=== PATIENT | male | born 1980 | race Caucasian/White ===

== ENCOUNTER 2017-05-06 21:14 | Emergency (ER) | payer OTHER ==
[2017-05-06 22:04] LABS: Hematocrit 38 % (42-52); Hemoglobin 12.2 g/dl (14.0-18.0); Mean Corpuscular HGB Conc 32 g/dl (31-36); Mean Corpuscular Hemoglobin 25 pg (27-31); Mean Corpuscular Volume 78 fL (80-94); Mean Platelet Volume 7 um3 (7.4-10.4); Red Blood Count 4.86 10^6/ul (4.0-5.4); Red Cell Distribution Width 16 % (10.5-15); White Blood Count 9.7 10^3/ul (3.5-10.8)
[2017-05-06 22:20] LABS: ALT 16 U/L (7-52); AST 21 U/L (13-39); Alkaline Phosphatase 46 U/L (34-104); Anion Gap 7 mmol/L (2-11); BUN/Creatinine Ratio 8.8 (8-20); Blood Urea Nitrogen 12 mg/dL (6-24); CO2 Carbon Dioxide 24 mmol/L (22-32); Calcium 9.5 mg/dL (8.6-10.3); Chloride 105 mmol/L (101-111); Creatine Kinase 192 U/L (10-223); EGFR African American 75.2 (>60); EGFR Non-African American 58.5 (>60); Globulin 3.3 g/dL (2-4); Glucose 135 mg/dL (70-100); Potassium 3.6 mmol/L (3.5-5.0); Sodium 136 mmol/L (133-145); Total Protein 7.3 g/dL (6.4-8.9)
[2017-05-06 22:45] LABS: Acetaminophen < 15 mcg/mL; Alcohol < 10 mg/dL (<10); Salicylate < 2.50 mg/dL (<30)
[2017-05-06 22:56] LABS: TSH (Thyroid Stimulating Horm) 0.48 mcIU/mL (0.34-5.60)
[2017-05-07] MEDS ORDERED: Mouth Piece, Nicotine* 1 EACH CARTRIDGE ONE (01:07)
[2017-05-07] MEDS ORDERED: Nicotine Inhaler* 10 MG AMP ONE (01:07)
[2017-05-07] MEDS ORDERED: Nicotine Inhaler* 10 MG AMP INH PRN (01:09)
[2017-05-07] MEDS ORDERED: Mouth Piece, Nicotine* 1 EACH CARTRIDGE INH PRN (01:09)
[2017-05-07 01:18] LABS: Urine Bilirubin Negative (Negative); Urine Glucose Negative (Negative); Urine Nitrite Negative (Negative)
[2017-05-07 01:31] LABS: Benzodiazepine Urine Screen None Detected (None Detect)
--- NOTE | 2017-05-07 05:37 | ED ---
I, Mg,Nathalie, scribed for Ricardo Lang MD on 05/06/17 at 2138 . Psychiatric Complaint - HPI Summary HPI Summary: This 37 y/o male presents to ED as 941 with [place] law enforcement. Per title lawyer, pt was [place] at gas station [place] and noted with altered behavior. Officer denies any witnessed seizure en route, but pt was reportedly noted with "trembling" by bystanders at gas station. he is also reported with irregular driving. Pt at time of initial evaluation denies any SI/ HI, auditory hallucination, or any substance abuse, or EtOH consumption tonight. Pt reports that he is currently on antidepressant, but denies being on any Abilify or haldol. Occasional MJ user. - History Of Current Complaint Chief Complaint: EDMentalHealth Hx Obtained From: Patient, Other: - law enforcement Onset/Duration: Still Present Timing: Constant Severity Initially: Moderate Severity Currently: Moderate Aggravating Factor(s): Nothing Alleviating Factor(s): Nothing Associated Signs And Symptoms: Positive: Negative - Allergies/Home Medications Allergies/Adverse Reactions: Allergies Allergy/AdvReac Type Severity Reaction Status Date / Time No Known Allergies Allergy Verified 04/03/17 20:51 PMH/Surg Hx/FS Hx/Imm Hx Endocrine/Hematology History: Denies: Hx Anticoagulant Therapy, Hx Diabetes, Hx Thyroid Disease Cardiovascular History: Denies: Hx Congestive Heart Failure, Hx Deep Vein Thrombosis, Hx Hypertension , Hx Myocardial Infarction, Hx Pacemaker/ICD Respiratory History: Denies: Hx Asthma, Hx Chronic Obstructive Pulmonary Disease (COPD), Hx Lung Cancer, Hx Pneumonia, Hx Pulmonary Embolism GI History: Denies: Hx Gall Bladder Disease, Hx Gastrointestinal Bleed, Hx Ulcer, Hx Urosepsis History: Denies: Hx Kidney Stones, Hx Renal Disease Neurological History: Denies: Hx Dementia, Hx Migraine, Hx Seizures, Hx Transient Ischemic Attacks (TIA) Psychiatric History: Denies: Hx Anxiety, Hx Depression, Hx Schizophrenia, Hx Bipolar Disorder - Surgical History Surgery Procedure, Year, and Place: APPENDECTOMY Infectious Disease History: Denies: Traveled Outside the [place] in Last 30 Days - Family History Known Family History: Positive: Hypertension, Diabetes - Social History Alcohol Use: None Hx Substance Use: Yes Substance Use Type: Reports: Marijuana Hx Tobacco Use: Yes Smoking Status (MU): Current Some Day Smoker Review of Systems Negative: Fever Negative: Anxious, Depressed, Other - negative SI/HI All Other Systems Reviewed And Are Negative: Yes Physical Exam - Summary Physical Exam Summary: The patient is well-nourished in no acute distress and in no acute pain. The skin is warm and dry and skin color reflects adequate perfusion. Negative sign of self harm. HEENT: The head is normocephalic and atraumatic. The pupils are equal and reactive. The conjunctivae are clear and without drainage. Nares are patent and without drainage. Mouth reveals moist mucous membranes and the throat is without erythema and exudate. Neck is supple with full range of motion and non-tender. There are no carotid bruits. There is no neck vein distension. Respiratory: Chest is non-tender. Lungs are clear to auscultation and breath sounds are symmetrical and equal. Cardiovascular: Hear is regular rate and rhythm. There is no murmur or rub auscultated. There is no peripheral edema and pulses are symmetrical and equal. Abdomen: The abdomen is soft and non-tender. There are normal bowel sounds heard in all four quadrants and there is no organomegaly palpated. Musculoskeletal: There is no back pain noted. Extremities are non-tender with full range of motion. There is good capillary refill. There is no peripheral edema or calf tenderness elicited. Neurological: Patient is alert and oriented to person, place and time. The patient has symmetrical motor strength in all four extremities. Cranial nerves are grossly intact. Deep tendon reflexes are symmetrical and equal in all four extremities. Psychiatric: The patient is noted with mild delusion and flight of idea. Triage Information Reviewed: Yes Vital Signs On Initial Exam: Initial Vitals Temp Pulse Resp BP Pulse Ox 98 F 106 22 125/82 98 05/06/17 21:18 05/06/17 21:18 05/06/17 21:18 05/06/17 21:18 05/06/17 21:18 Vital Signs Reviewed: Yes Diagnostics - Vital Signs Vital Signs Temp Pulse Resp BP Pulse Ox 05/06/17 21:18 98 F 106 22 125/82 98 - Laboratory Lab Results: Lab Results 05/06/17 05/06/17 05/07/17 Range/Units 21:50 21:50 01:00 WBC 9.7 (3.5-10.8) 10^3/ul RBC 4.86 (4.0-5.4) 10^6/ul Hgb 12.2 L (14.0-18.0) g/dl Hct 38 L (42-52) % MCV 78 L (80-94) fL MCH 25 L (27-31) pg MCHC 32 (31-36) g/dl RDW 16 H (10.5-15) % Plt Count 242 (150-450) 10^3/ul MPV 7 L (7.4-10.4) um3 Neut % (Auto) 67.3 (38-83) % Lymph % (Auto) 16.0 L (25-47) % Wilcox % (Auto) 10.2 H (1-9) % Eos % (Auto) 4.9 (0-6) % Baso % (Auto) 1.6 (0-2) % Absolute Neuts (auto) 6.5 (1.5-7.7) 10^3/ul Absolute Lymphs (auto) 1.5 (1.0-4.8) 10^3/ul Absolute Monos (auto) 1.0 H (0-0.8) 10^3/ul Absolute Eos (auto) 0.5 (0-0.6) 10^3/ul Absolute Basos (auto) 0.2 (0-0.2) 10^3/ul Absolute Nucleated RBC 0 10^3/ul Nucleated RBC % 0 Sodium 136 (133-145) mmol/L Potassium 3.6 (3.5-5.0) mmol/L Chloride 105 (101-111) mmol/L Carbon Dioxide 24 (22-32) mmol/L Anion Gap 7 (2-11) mmol/L BUN 12 (6-24) mg/dL Creatinine 1.37 H (0.67-1.17) mg/dL Est GFR ( Amer) 75.2 (>60) Est GFR (Non-Af Amer) 58.5 (>60) BUN/Creatinine Ratio 8.8 (8-20) Glucose 135 H (70-100) mg/dL Calcium 9.5 (8.6-10.3) mg/dL Total Bilirubin 0.50 (0.2-1.0) mg/dL AST 21 (13-39) U/L ALT 16 (7-52) U/L Alkaline Phosphatase 46 (34-104) U/L Total Creatine Kinase 192 (10-223) U/L Total Protein 7.3 (6.4-8.9) g/dL Albumin 4.0 (3.2-5.2) g/dL Globulin 3.3 (2-4) g/dL Albumin/Globulin Ratio 1.2 (1-3) TSH 0.48 (0.34-5.60) mcIU/mL Urine Color Yellow Urine Appearance Clear Urine pH 5.0 (5-9) Ur Specific Success 1.015 (1.010-1.030) Urine Protein Negative (Negative) Urine Ketones Negative (Negative) Urine Blood Negative (Negative) Urine Nitrate Negative (Negative) Urine Bilirubin Negative (Negative) Urine Urobilinogen Negative (Negative) Ur Leukocyte Esterase Negative (Negative) Urine Glucose Negative (Negative) Salicylates < 2.50 (<30) mg/dL Urine Opiates Screen (None Detect) Acetaminophen < 15 mcg/mL Ur Barbiturates Screen (None Detect) Ur Phencyclidine Scrn (None Detect) Ur Amphetamines Screen (None Detect) U Benzodiazepines Scrn (None Detect) Urine Cocaine Screen (None Detect) U Cannabinoids Screen (None Detect) Serum Alcohol < 10 (<10) mg/dL 05/07/17 Range/Units 01:00 WBC (3.5-10.8) 10^3/ul RBC (4.0-5.4) 10^6/ul Hgb (14.0-18.0) g/dl Hct (42-52) % MCV (80-94) fL MCH (27-31) pg MCHC (31-36) g/dl RDW (10.5-15) % Plt Count (150-450) 10^3/ul MPV (7.4-10.4) um3 Neut % (Auto) (38-83) % Lymph % (Auto) (25-47) % Wilcox % (Auto) (1-9) % Eos % (Auto) (0-6) % Baso % (Auto) (0-2) % Absolute Neuts (auto) (1.5-7.7) 10^3/ul Absolute Lymphs (auto) (1.0-4.8) 10^3/ul Absolute Monos (auto) (0-0.8) 10^3/ul Absolute Eos (auto) (0-0.6) 10^3/ul Absolute Basos (auto) (0-0.2) 10^3/ul Absolute Nucleated RBC 10^3/ul Nucleated RBC % Sodium (133-145) mmol/L Potassium (3.5-5.0) mmol/L Chloride (101-111) mmol/L Carbon Dioxide (22-32) mmol/L Anion Gap (2-11) mmol/L BUN (6-24) mg/dL Creatinine (0.67-1.17) mg/dL Est GFR ( Amer) (>60) Est GFR (Non-Af Amer) (>60) BUN/Creatinine Ratio (8-20) Glucose (70-100) mg/dL Calcium (8.6-10.3) mg/dL Total Bilirubin (0.2-1.0) mg/dL AST (13-39) U/L ALT (7-52) U/L Alkaline Phosphatase (34-104) U/L Total Creatine Kinase (10-223) U/L Total Protein (6.4-8.9) g/dL Albumin (3.2-5.2) g/dL Globulin (2-4) g/dL Albumin/Globulin Ratio (1-3) TSH (0.34-5.60) mcIU/mL Urine Color Urine Appearance Urine pH (5-9) Ur Specific Success (1.010-1.030) Urine Protein (Negative) Urine Ketones (Negative) Urine Blood (Negative) Urine Nitrate (Negative) Urine Bilirubin (Negative) Urine Urobilinogen (Negative) Ur Leukocyte Esterase (Negative) Urine Glucose (Negative) Salicylates (<30) mg/dL Urine Opiates Screen Presumptive positive H (None Detect) Acetaminophen mcg/mL Ur Barbiturates Screen None detected (None Detect) Ur Phencyclidine Scrn None detected (None Detect) Ur Amphetamines Screen Presumptive positive H (None Detect) U Benzodiazepines Scrn None detected (None Detect) Urine Cocaine Screen Presumptive positive H (None Detect) U Cannabinoids Screen Presumptive positive H (None Detect) Serum Alcohol (<10) mg/dL Result Diagrams: 05/06/17 21:50 05/06/17 21:50 Lab Statement: Any lab studies that have been ordered have been reviewed, and results considered in the medical decision making process. - EKG 2208 Cardiac Rate: NL EKG Rhythm: Sinus Rhythm Course/Dx - Course Assessment/Plan: This 37 y/o male presents to ED under [place] law enforcement custody after driving erradically and acting altered at [place] station [place]. Officer present at bedside denies witnessing any seizure en route, but does states that bystanders at gas station reports that pt was noted with tremors. Upon examination pt is noted with flight of ideas. Negative SI/HI. Pt was medically cleared and put through mental health evaluation. Pt is discharged home. - Differential Dx/Clinical Impression Differential Diagnosis/HQI/PQRI: Positive: Acute Psychosis, Drug Overdose/ Unintentional, Schizophrenia Provider Diagnosis: substance psychosis, Polysubstance abuse - Physician Notifications Patient Is Medically Stable For: Psych Evaluation - medically cleared at 2344 PM Discharge - Discharge Plan Condition: Stable Disposition: HOME Referrals: Clay Joseph MD [Primary Care Provider] - The documentation as recorded by the Mg mcginnis Soohyun accurately reflects the service I personally performed and the decisions made by , Ricardo Lang MD.
[2017-05-07 05:48] VITALS: BP 128/67
== END 2017-05-07 05:48 | disposition home or self-care (01) ==
LOC: ED 21:14
DX: F19.959 Other psychoactive substance use, unspecified with psychoactive substance-induced psychotic disorder, unspecified (principal); F19.10 Other psychoactive substance abuse, uncomplicated
CPT/HCPCS: 36415; 80053; 80307; 80320; 80329; 81003; 82550; 84443; 85025; 99285; A9270-GY; G0480

== ENCOUNTER → 2017-08-28 12:41 | Emergency (ER) | payer OTHER ==
[~2017-08-28 12:41] MED LIST: Haloperidol INJ IV/IM* 5 MG/ML AMP ONE; LORazepam INJ* 2 MG/ML 1 ML VIAL ONE; diPHENhydraMINE IV* 50 MG/ML 1 ml VIAL (BENADRYL) ONE
[2017-08-28 13:46] LABS: Hematocrit 38 % (42-52); Hemoglobin 12.4 g/dl (14.0-18.0); Mean Corpuscular HGB Conc 32 g/dl (31-36); Mean Corpuscular Hemoglobin 25 pg (27-31); Mean Corpuscular Volume 78 fL (80-94); Mean Platelet Volume 7 um3 (7.4-10.4); Red Blood Count 4.93 10^6/ul (4.0-5.4); Red Cell Distribution Width 17 % (10.5-15); White Blood Count 11.4 10^3/ul (3.5-10.8)
[2017-08-28 13:56] LABS: ALT 20 U/L (7-52); AST 35 U/L (13-39); Albumin 3.8 g/dL (3.2-5.2); Alkaline Phosphatase 49 U/L (34-104); Anion Gap 7 mmol/L (2-11); BUN/Creatinine Ratio 6.6 (8-20); Blood Urea Nitrogen 10 mg/dL (6-24); CO2 Carbon Dioxide 22 mmol/L (22-32); Calcium 9.2 mg/dL (8.6-10.3); Chloride 107 mmol/L (101-111); EGFR African American 67.2 (>60); EGFR Non-African American 52.3 (>60); Globulin 3.5 g/dL (2-4); Glucose 95 mg/dL (70-100); Potassium 3.9 mmol/L (3.5-5.0); Sodium 136 mmol/L (133-145); Total Protein 7.3 g/dL (6.4-8.9)
[2017-08-28 14:45] LABS: Acetaminophen < 15 mcg/mL; Alcohol < 10 mg/dL (<10); Salicylate < 2.50 mg/dL (<30)
[2017-08-28 15:00] LABS: TSH (Thyroid Stimulating Horm) 0.91 mcIU/mL (0.34-5.60)
[2017-08-28 18:03] LABS: Urine Bilirubin Negative (Negative); Urine Glucose Negative (Negative); Urine Nitrite Negative (Negative)
[2017-08-28 18:17] LABS: Benzodiazepine Urine Screen None Detected (None Detect)
[2017-08-28 22:26] VITALS: BP 112/64
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
--- NOTE | 2017-08-30 08:16 | CONSULT ---
Consult Consult: Mr. Ellis presented last night intoxicated and out of control. He was sobered up and medically cleared on a previous shift and then seen by the [facility] today. They felt that he was safe for D/C. He will be D/C'd in stable condition with a diagnosis of substance abuse.
== END ==
LOC: ED 12:41
DX: F19.10 Other psychoactive substance abuse, uncomplicated (principal); F17.200 Nicotine dependence, unspecified, uncomplicated
CPT/HCPCS: 36415; 80053; 80307; 80320; 80329; 81003; 84443; 85025; 99284; G0480; J1200; J1630; J2060

== ENCOUNTER 2017-09-13 16:44 | Observation (INO) | payer OTHER ==
[2017-09-13] MEDS ORDERED: LORazepam INJ* 2 MG/ML 1 ML VIAL IM ONE (17:11)
[2017-09-13] MEDS ORDERED: Haloperidol INJ IV/IM* 5 MG/ML AMP IM ONE (17:11)
[2017-09-13] MEDS ORDERED: diPHENhydraMINE IV* 50 MG/ML 1 ml VIAL (BENADRYL) IM ONE (17:11)
[2017-09-13] MEDS ORDERED: NS 0.9% 1000 ML* 1,000 ML IV ONE (17:42)
[2017-09-13] MEDS ORDERED: Naloxone* 0.4 MG/ML 1 ML VIAL IV PUSH ONE ×3 (17:54→21:48)
[2017-09-13] MEDS ORDERED: Naloxone* 0.4 MG/ML 1 ML VIAL ONE ×2 (17:55→20:55)
[2017-09-13 19:07] LABS: Hematocrit 37 % (42-52); Hemoglobin 12.1 g/dl (14.0-18.0); Mean Corpuscular HGB Conc 33 g/dl (31-36); Mean Corpuscular Hemoglobin 25 pg (27-31); Mean Corpuscular Volume 77 fL (80-94); Mean Platelet Volume 7 um3 (7.4-10.4); Red Blood Count 4.83 10^6/ul (4.0-5.4); Red Cell Distribution Width 17 % (10.5-15); White Blood Count 10.2 10^3/ul (3.5-10.8)
[2017-09-13 19:17] LABS: ALT 12 U/L (7-52); AST 22 U/L (13-39); Albumin 3.6 g/dL (3.2-5.2); Alkaline Phosphatase 38 U/L (34-104); Anion Gap 6 mmol/L (2-11); BUN/Creatinine Ratio 10.6 (8-20); Blood Urea Nitrogen 13 mg/dL (6-24); CO2 Carbon Dioxide 26 mmol/L (22-32); Calcium 9.3 mg/dL (8.6-10.3); Chloride 104 mmol/L (101-111); EGFR African American 85.2 (>60); EGFR Non-African American 66.2 (>60); Globulin 3.5 g/dL (2-4); Glucose 83 mg/dL (70-100); Potassium 3.9 mmol/L (3.5-5.0); Sodium 136 mmol/L (133-145); Total Protein 7.1 g/dL (6.4-8.9)
[2017-09-13 19:31] LABS: Acetaminophen < 15 mcg/mL; Alcohol < 10 mg/dL (<10); Salicylate < 2.50 mg/dL (<30)
[2017-09-13 19:45] LABS: TSH (Thyroid Stimulating Horm) 0.87 mcIU/mL (0.34-5.60)
[2017-09-13 20:22] LABS: Creatine Kinase 404 U/L (10-223)
--- NOTE | 2017-09-13 21:46 | ED ---
Cori Montana Nilda, scribed for Jennifer Downey MD on 09/13/17 at 1910 . Substance Abuse/Use - HPI Summary HPI Summary: This patient is a 37 year old M [facility] s/p possible substance abuse. Patient is acting erratically and will not cooperate with providers. LEVEL 5 CAVEAT: HPI limited due to patients uncooperative status. - History Of Current Complaint Chief Complaint: EDSubstanceAbuse Stated Complaint: 2208 Time Seen by Provider: 09/13/17 16:50 Hx Obtained From: Patient Hx From Patient Unobtainable Due To: Altered Mental Status Severity Currently: Moderate Character: Other - inappropriate behavior, noncooperative - Allergies/Home Medications Allergies/Adverse Reactions: Allergies Allergy/AdvReac Type Severity Reaction Status Date / Time No Known Allergies Allergy Verified 04/03/17 20:51 PMH/Surg Hx/FS Hx/Imm Hx Endocrine/Hematology History: Denies: Hx Anticoagulant Therapy, Hx Diabetes, Hx Thyroid Disease Cardiovascular History: Denies: Hx Congestive Heart Failure, Hx Deep Vein Thrombosis, Hx Hypertension , Hx Myocardial Infarction, Hx Pacemaker/ICD Respiratory History: Denies: Hx Asthma, Hx Chronic Obstructive Pulmonary Disease (COPD), Hx Lung Cancer, Hx Pneumonia, Hx Pulmonary Embolism GI History: Denies: Hx Gall Bladder Disease, Hx Gastrointestinal Bleed, Hx Ulcer, Hx Urosepsis History: Denies: Hx Kidney Stones, Hx Renal Disease Neurological History: Denies: Hx Dementia, Hx Migraine, Hx Seizures, Hx Transient Ischemic Attacks (TIA) Psychiatric History: Denies: Hx Anxiety, Hx Eating Disorder, Hx Depression, Hx Schizophrenia, Hx Bipolar Disorder, Hx of Violent Episodes Against Others - Surgical History Surgery Procedure, Year, and Place: APPENDECTOMY Infectious Disease History: Unable to Obtain/Confirm Infectious Disease History: Denies: Traveled Outside the [place] in Last 30 Days - Family History Known Family History: Positive: Hypertension, Diabetes - Social History Alcohol Use: None Hx Substance Use: Yes Substance Use Type: Reports: Cocaine, Heroin, Marijuana Substance Use Comment - Amount & Last Used: Unknown Hx Tobacco Use: Yes Smoking Status (MU): Current Some Day Smoker Review of Systems - ROS Summary Review of Systems Summary: LEVEL 5 CAVEAT: ROS limited due to patients uncooperative status. Negative: Shortness Of Breath Psychological: Other - inappropriate behavior and noncooperative All Other Systems Reviewed And Are Negative: No Physical Exam - Summary Physical Exam Summary: LEVEL 5 CAVEAT: PE limited due to patients uncooperative status. Triage Information Reviewed: Yes Vital Signs On Initial Exam: Initial Vitals Temp Pulse Resp BP Pulse Ox 99.1 F 106 20 118/83 95 09/13/17 16:59 09/13/17 16:59 09/13/17 16:59 09/13/17 16:59 09/13/17 16:59 Vital Signs Reviewed: Yes Completion Of Physical Exam Limited Due To: Level 5 Appearance: Positive: Well-Appearing, No Pain Distress Skin: Positive: Warm, Skin Color Reflects Adequate Perfusion, Dry Eyes: Positive: EOMI, RAVEN, Other: - Pupils normal ENT: Positive: Pharynx normal, TMs normal Neck: Positive: Supple, Nontender Respiratory/Lung Sounds: Positive: Clear to Auscultation, Breath Sounds Present. Negative: Rales, Rhonchi, Wheezes Cardiovascular: Positive: RRR Abdomen Description: Positive: Nontender, Soft Psychiatric: Positive: Other - Inappropriate behavior, Patient Uncooperative for Exam - Laure Coma Scale Coma Scale Total: 13 Diagnostics - Vital Signs Vital Signs Temp Pulse Resp BP Pulse Ox 09/13/17 16:59 99.1 F 106 20 118/83 95 - Laboratory Lab Results: Lab Results 09/13/17 09/13/17 Range/Units 18:44 18:44 WBC 10.2 (3.5-10.8) 10^3/ul RBC 4.83 (4.0-5.4) 10^6/ul Hgb 12.1 L (14.0-18.0) g/dl Hct 37 L (42-52) % MCV 77 L (80-94) fL MCH 25 L (27-31) pg MCHC 33 (31-36) g/dl RDW 17 H (10.5-15) % Plt Count 276 (150-450) 10^3/ul MPV 7 L (7.4-10.4) um3 Neut % (Auto) 60.1 (38-83) % Lymph % (Auto) 23.0 L (25-47) % Clarke % (Auto) 9.6 H (1-9) % Eos % (Auto) 6.5 H (0-6) % Baso % (Auto) 0.8 (0-2) % Absolute Neuts (auto) 6.1 (1.5-7.7) 10^3/ul Absolute Lymphs (auto) 2.3 (1.0-4.8) 10^3/ul Absolute Monos (auto) 1.0 H (0-0.8) 10^3/ul Absolute Eos (auto) 0.7 H (0-0.6) 10^3/ul Absolute Basos (auto) 0.1 (0-0.2) 10^3/ul Absolute Nucleated RBC 0.01 10^3/ul Nucleated RBC % 0.1 Sodium 136 (133-145) mmol/L Potassium 3.9 (3.5-5.0) mmol/L Chloride 104 (101-111) mmol/L Carbon Dioxide 26 (22-32) mmol/L Anion Gap 6 (2-11) mmol/L BUN 13 (6-24) mg/dL Creatinine 1.23 H (0.67-1.17) mg/dL Est GFR ( Amer) 85.2 (>60) Est GFR (Non-Af Amer) 66.2 (>60) BUN/Creatinine Ratio 10.6 (8-20) Glucose 83 (70-100) mg/dL Calcium 9.3 (8.6-10.3) mg/dL Total Bilirubin 0.50 (0.2-1.0) mg/dL AST 22 (13-39) U/L ALT 12 (7-52) U/L Alkaline Phosphatase 38 (34-104) U/L Total Creatine Kinase 404 H (10-223) U/L Total Protein 7.1 (6.4-8.9) g/dL Albumin 3.6 (3.2-5.2) g/dL Globulin 3.5 (2-4) g/dL Albumin/Globulin Ratio 1.0 (1-3) TSH 0.87 (0.34-5.60) mcIU/mL Salicylates < 2.50 (<30) mg/dL Acetaminophen < 15 mcg/mL Serum Alcohol < 10 (<10) mg/dL Result Diagrams: 09/13/17 18:44 09/13/17 18:44 Lab Statement: Any lab studies that have been ordered have been reviewed, and results considered in the medical decision making process. - EKG 2035 Cardiac Rate: NL - 72 bpm EKG Rhythm: Sinus Rhythm ST Segment: Normal Ectopy: None EKG Interpretation: J point elevation Course/Dx - Course Course Of Treatment: 37 yo male brought in as a 2209 for disorderly conduct given haldol, ativan and benadryl with some apneic spells. Pt was then given 2mg of narcan which made pt agitated and increased his heart rate for a short time, since then pt has been sleeping comfortably. He did require a narcan drip and was admitted by dr. Buenrostro - Diagnoses Provider Diagnoses: Substance abuse, Apnea, Narcotic abuse Discharge - Discharge Plan Condition: Guarded Disposition: ADMITTED TO [facility] The documentation as recorded by the Cori mcginnis Nilda accurately reflects the service I personally performed and the decisions made by me, Jennifer Downey MD.
[2017-09-13] MEDS ORDERED: NS 0.9% 1000 ML* 1,000 ML IV SCH (22:15)
[2017-09-13] MEDS ORDERED: Naloxone* 2 MG in NS 0.9% 250 ML* 245 ML IV SCH (22:15)
--- NOTE | 2017-09-14 02:39 | HP ---
CC: Dr. Joseph* MEDICINE HISTORY AND PHYSICAL: DATE OF ADMISSION: 09/13/17 PROVIDER: Mundo Power NP ATTENDING PHYSICIAN: Malinda Buenrostro DO* (dictated by Mundo Power NP) PRIMARY CARE PROVIDER: Dr. Clay Joseph. CHIEF COMPLAINT: Substance abuse. HISTORY OF PRESENT ILLNESS: This is a 37-year-old male patient who was brought in by ambulance to the ER this afternoon with concern for possible substance abuse. The patient is currently somnolent and unable to provide a history. He is difficult to arouse and does not cooperate with exam. Per the EMS notes, the patient was found standing with [employer] officers by the EMS staff. The [employer] had concerns because the patient had been wondering around [address] and causing a public disturbance by yelling profanity and appeared to be confused. He had also been physically hitting himself, but was not violent with the police officers. He was brought in to [facility] where his behavior continued to be erratic. Per the nursing notes, the patient at one point stated that he did meth, then denied this later. Due to his behavior, the patient received chemical restraints, which included Benadryl, Haldol, and lorazepam. Since that time, the patient has been noted to have some apneic episodes as well as some hypoxic episodes interchanged with periods of agitation. He has been started on Narcan and now requires a Narcan drip in order to help the patient maintain his respirations and O2 saturation. In the ER, labs are generally unremarkable. He does have a total CK of 404, creatinine of 1.23, which appears to be one of the patient's baseline. His toxicology was negative. Urine drug screen has not yet been completed. PAST MEDICAL HISTORY: I could not obtain from the patient. Per review of medical records, the patient appears to have no significant medical history other than polysubstance abuse. HOME MEDICATIONS: Unable to confirm secondary to altered mental status. Per Melissa, the patient appears to be on citalopram 10 mg, but this will need to be confirmed with his primary care provider's office in the morning. ALLERGIES: No known allergies. FAMILY HISTORY: Unobtainable. SOCIAL HISTORY: Unable to obtain or confirm at this time. The patient apparently has a history of cocaine and heroin use and possibly used meth earlier. The patient has, Claudette Gil, who is his significant other listed as his surrogate decision maker on file. REVIEW OF SYSTEMS: Unobtainable secondary to altered mental state. PHYSICAL EXAMINATION GENERAL: This is a 37-year-old male patient, who is lying in the ED stretcher. He is somnolent. He is difficult to arouse. He does push my hands away when I had come to awaken him. He does appear to be resting comfortably. VITAL SIGNS: Most recent vital signs, temperature 99.1, heart rate 76, respiratory rate 12, blood pressure 106/66, O2 saturation is 97% on room air. HEENT: Pupils are equal, round, and reactive to light. The patient has some scattered abrasions to face. Oral mucosa appears somewhat dry. The patient does not allow me a full examination of the oropharynx. NECK: Supple. LUNGS: Clear to auscultation bilaterally. CARDIAC: S1 and S2 heart sounds. Regular rate and rhythm. ABDOMEN: Soft, nontender, and nondistended. EXTREMITIES: No peripheral edema noted. The patient has distal pulses that are 2+, symmetric, and equal. NEUROLOGIC: The patient is observed moving all extremities while shifting in bed. He is otherwise uncooperative for the exam. LABORATORY DATA AND DIAGNOSTIC STUDIES: CBC: WBC 10.2, hemoglobin 12.1, hematocrit 37, platelet count 276. CMP: Sodium 136, potassium 3.9, chloride 104, carbon dioxide 26, BUN 13, creatinine 1.23, glucose 83, calcium 9.3, total bilirubin 0.5, AST 22, ALT 12, alk phos 38, total CK 404, TSH 0.87. Toxicology negative for salicylate, acetaminophen, and serum alcohol. EKG shows sinus rhythm at 72 beats per minute with no significant ST or T-wave changes. ASSESSMENT AND PLAN: This is a 37-year-old male patient who was brought in under 2209 legal status with the [employer] and EMS secondary to disorderly conduct and polysubstance abuse. He was given chemical restraints here in the ED and subsequently required Narcan. He will be admitted to the ICU for close monitoring. Plan is as follows: 1. Substance abuse. It is unclear what the patient took, although there is a question of potential meth and heroin. The patient is in danger of apnea and hypoxia. He is requiring a Narcan drip, therefore, we will monitor the patient in the ICU overnight and maintain the naloxone drip that was initiated in the ED. The patient is currently maintaining his O2 saturation and has appropriate respiratory status with current therapy. 2. Mental health behavioral issues. The patient may benefit from a Psych consult once he is medically cleared and able to be weaned from naloxone drip. 3. FEN. The patient is ordered continuous IV fluids, regular diet when he is able to partake in p.o. 4. Code status. The patient is a full code. 5. DVT prophylaxis. He is ordered FAREED hose and the patient should be up ab millicent when able. TIME SPENT: Time spent on this admission was roughly 60 minutes, more than half that time was spent [id number] with the patient attempting to obtain history and physical, performing physical examination and I reviewed the plan of care with my attending, Dr. Buenrostro, who is in agreement. MUNDO POWER, OLIVE PACKER [id number]/[facility] #: [id number] LEXI
[2017-09-14 05:59] LABS: Hematocrit 35 % (42-52); Hemoglobin 11.5 g/dl (14.0-18.0); Mean Corpuscular HGB Conc 33 g/dl (31-36); Mean Corpuscular Hemoglobin 26 pg (27-31); Mean Corpuscular Volume 78 fL (80-94); Mean Platelet Volume 7 um3 (7.4-10.4); Red Blood Count 4.48 10^6/ul (4.0-5.4); Red Cell Distribution Width 17 % (10.5-15); White Blood Count 6.1 10^3/ul (3.5-10.8)
[2017-09-14 06:15] LABS: BUN/Creatinine Ratio 16.2 (8-20); Calcium 7.6 mg/dL (8.6-10.3); EGFR African American 153.1 (>60); Potassium 3.4 mmol/L (3.5-5.0)
--- NOTE | 2017-09-14 08:50 | PN ---
Subjective Date of Service: 09/14/17 Interval History: Patient seen and examined at bedside. Pt initially opened his eyes to his name and answered a few questions. But once asked about drug use, he closed his eyes and stopped answering questions or following directions. Tele: Sinus rhythm, rate 60-80's. Family History: Unchanged from Admission Social History: Unchanged from Admission Past Medical History: Unchanged from Admission Objective Active Medications: Naloxone HCl 2 mg/ Sodium (Chloride) 250 mls @ 31.25 mls/hr IV .PER RATE CESAR Reason: 0.25 MG/HR Vital Signs 09/13/17 09/13/17 09/13/17 22:10 22:30 22:50 Temperature 98.5 F Pulse Rate 77 83 Respiratory Rate Blood Pressure 104/55 (mmHg) O2 Sat by Pulse 94 94 Oximetry 09/13/17 09/13/17 09/13/17 22:51 23:00 23:01 Temperature Pulse Rate 79 74 Respiratory 19 16 Rate Blood Pressure 100/58 132/117 (mmHg) O2 Sat by Pulse 95 96 Oximetry 09/13/17 09/13/17 09/13/17 23:07 23:08 23:12 Temperature 98.5 F 98 F Pulse Rate 85 75 66 Respiratory 12 12 18 Rate Blood Pressure 107/72 116/67 99/66 (mmHg) O2 Sat by Pulse 96 96 96 Oximetry 09/13/17 09/13/17 09/13/17 23:15 23:30 23:45 Temperature Pulse Rate 81 82 74 Respiratory 14 12 15 Rate Blood Pressure 106/72 111/68 110/80 (mmHg) O2 Sat by Pulse 95 94 97 Oximetry 09/14/17 09/14/17 09/14/17 00:00 00:01 00:14 Temperature Pulse Rate 82 73 76 Respiratory 13 11 12 Rate Blood Pressure 107/72 (mmHg) O2 Sat by Pulse 93 95 96 Oximetry 09/14/17 09/14/17 09/14/17 00:15 00:16 00:30 Temperature Pulse Rate 84 80 91 Respiratory 13 12 16 Rate Blood Pressure 106/65 109/66 (mmHg) O2 Sat by Pulse 95 95 89 Oximetry 09/14/17 09/14/17 09/14/17 00:45 01:00 01:01 Temperature Pulse Rate 76 79 79 Respiratory 15 13 13 Rate Blood Pressure 106/63 100/63 (mmHg) O2 Sat by Pulse 95 95 95 Oximetry 09/14/17 09/14/17 09/14/17 01:15 01:30 01:45 Temperature Pulse Rate 78 81 58 Respiratory 14 15 13 Rate Blood Pressure 102/66 109/68 103/71 (mmHg) O2 Sat by Pulse 95 95 96 Oximetry 09/14/17 09/14/17 09/14/17 02:00 02:01 02:15 Temperature Pulse Rate 76 77 74 Respiratory 13 13 13 Rate Blood Pressure 101/66 101/63 (mmHg) O2 Sat by Pulse 97 96 96 Oximetry 09/14/17 09/14/17 09/14/17 02:30 02:45 03:00 Temperature Pulse Rate 79 82 74 Respiratory 13 13 13 Rate Blood Pressure 103/60 107/60 105/62 (mmHg) O2 Sat by Pulse 96 98 97 Oximetry 09/14/17 09/14/17 09/14/17 03:01 03:15 03:30 Temperature Pulse Rate 72 73 70 Respiratory 13 15 14 Rate Blood Pressure 105/64 104/68 (mmHg) O2 Sat by Pulse 96 93 97 Oximetry 09/14/17 09/14/17 09/14/17 03:45 04:00 04:01 Temperature 97.7 F Pulse Rate 76 74 75 Respiratory 14 11 12 Rate Blood Pressure 104/65 112/64 (mmHg) O2 Sat by Pulse 96 96 95 Oximetry 09/14/17 09/14/17 09/14/17 04:15 04:30 04:45 Temperature Pulse Rate 75 83 55 Respiratory 13 13 12 Rate Blood Pressure 117/69 115/69 114/72 (mmHg) O2 Sat by Pulse 95 96 99 Oximetry 09/14/17 09/14/17 09/14/17 05:00 05:01 05:15 Temperature Pulse Rate 70 87 60 Respiratory 12 14 13 Rate Blood Pressure 101/63 118/67 (mmHg) O2 Sat by Pulse 97 98 98 Oximetry 09/14/17 09/14/17 09/14/17 05:30 05:31 05:45 Temperature Pulse Rate 64 72 59 Respiratory 12 14 13 Rate Blood Pressure 113/81 106/74 128/88 (mmHg) O2 Sat by Pulse 99 98 97 Oximetry 09/14/17 09/14/17 09/14/17 06:00 06:01 06:15 Temperature Pulse Rate 66 68 73 Respiratory 13 11 13 Rate Blood Pressure 99/68 105/65 (mmHg) O2 Sat by Pulse 99 98 95 Oximetry 09/14/17 09/14/17 09/14/17 06:30 06:45 07:00 Temperature Pulse Rate 77 74 73 Respiratory 13 13 11 Rate Blood Pressure 103/62 112/65 111/62 (mmHg) O2 Sat by Pulse 95 96 95 Oximetry 09/14/17 09/14/17 07:33 08:00 Temperature 98.2 F Pulse Rate Respiratory 14 Rate Blood Pressure (mmHg) O2 Sat by Pulse Oximetry Oxygen Devices in Use Now: None Appearance: NAD, laying in bed Ears/Nose/Mouth/Throat: Mucous Membranes Moist Respiratory: Symmetrical Chest Expansion and Respiratory Effort, Clear to Auscultation Cardiovascular: NL Sounds; No Murmurs; No JVD Abdominal: NL Sounds; No Tenderness; No Distention Extremities: No Edema Skin: No Rash or Ulcers Neurological: - - Arousable but drowsy, unable to determine orientation as Pt will not answer questions Lines/Tubes/Other Access: Clean, Dry and Intact Peripheral IV - site benign Nutrition: Taking PO's Result Diagrams: 09/14/17 05:33 09/14/17 05:43 Microbiology and Other Data: Microbiology 09/13/17 23:45 Nasal Screen MRSA (PCR)(LUCIA) - Final Nasal Mrsa Positive Assess/Plan/Problems-Billing Assessment: Mr. Ellis is a 37 yo male with no significant PMH who presented to the emergency room under a 2209 legal status with [employer] and EMS secondary to disorderly conduct and polysubstance abuse. He was given chemical restraints in the ED and required Narcan. He was admitted to the ICU. - Patient Problems (1) Substance abuse Code(s): F19.10 - OTHER PSYCHOACTIVE SUBSTANCE ABUSE, UNCOMPLICATED SNOMED Code(s): 95488742 Comment: - Unclear what the Pt took, he is not willing to discuss - Requiring a Narcan drip overnight that is now off - Maintaining good respiratory status on room air - Will straight cath for urine drug tox - SW and psych consult pending (2) NU (acute kidney injury) Code(s): N17.9 - ACUTE KIDNEY FAILURE, UNSPECIFIED SNOMED Code(s): 94616268 Comment: - Resolved after IVFs (3) Electrolyte abnormality Code(s): E87.8 - OTH DISORDERS OF ELECTROLYTE AND FLUID BALANCE, NEC SNOMED Code(s): 024302553 Comment: - Hypokalemia - Will give replacment today, recheck in the AM (4) DVT prophylaxis Code(s): BHS9730 - SNOMED Code(s): 638503882 Comment: - TEDs and ambulate (5) Full code status Code(s): Z78.9 - OTHER SPECIFIED HEALTH STATUS SNOMED Code(s): 814811894 Status and Disposition: Inpatient. Discharge to home when medically stable.
[2017-09-14] MEDS ORDERED: Potassium Chlor TAB* 20 MEQ TAB.ER PO ONE (10:32)
[2017-09-14 11:01] LABS: Magnesium 1.8 mg/dL (1.9-2.7)
[2017-09-14 13:29] LABS: Urine Bilirubin Negative (Negative); Urine Glucose Negative (Negative); Urine Nitrite Negative (Negative)
[2017-09-14] MEDS ORDERED: Acetaminophen TAB* 325 MG PO PRN (20:33)
[2017-09-14] MEDS ORDERED: Magnesium Sulfate 2 GM IV* 2 GM/50 ML BAG IVPB ONE (23:40)
[2017-09-15 07:04] LABS: BUN/Creatinine Ratio 12.1 (8-20); Calcium 9.3 mg/dL (8.6-10.3); EGFR African American 120.6 (>60); EGFR Non-African American 93.7 (>60); Magnesium 2.5 mg/dL (1.9-2.7); Potassium 4.2 mmol/L (3.5-5.0)
[2017-09-15 07:39] VITALS: BP 121/70
--- NOTE | 2017-09-16 04:19 | DS ---
CC: Dr. Joseph* DISCHARGE SUMMARY: DATE OF ADMISSION: 09/13/17 DATE OF DISCHARGE: 09/15/17 PRIMARY CARE PROVIDER: Dr. Joseph. DISCHARGING PROVIDER: ELADIA Simpson. SUPERVISING PHYSICIAN: Gracia Chamorro MD* (dictated by ELADIA Simpson). PRIMARY DISCHARGE DIAGNOSES: 1. Apnea secondary to intoxication with unknown substance. 2. Suspected substance abuse. 3. Acute kidney injury secondary likely to hypovolemia. 4. Hypokalemia - resolved. DISCHARGE MEDICATIONS: 1. Multivitamin 1 tablet p.o. daily. 2. Naproxen 500 mg p.o. twice daily as needed. HOSPITAL IMAGING: None. HOSPITAL COURSE: This is a 37-year-old gentleman with no known significant medical history who was brought in by police to the emergency department due to erratic behavior. In the emergency department, he became increasingly agitated and appeared to be intoxicated. In order to maintain safety of him and those around him, he received a cocktail with Benadryl, Haldol, and lorazepam. The patient became increasingly somnolent, had periods of apnea and hypoxia. Hospitalist group was subsequently asked to evaluate for admission. The patient was persistently somnolent and there was concern for his ability to maintain his own airway. He was subsequently admitted to ICU for further observation, but did not require intubation. He was, however, started on a Narcan drip. His level of consciousness improved the day following admission, but he was still quite lethargic and when questioned about substance use or abuse, he was unwilling to share. On the day of discharge, the patient was alert and cooperative and fairly pleasant with interaction. He denied any ingestion of illicit substances. He does recall the day of admission and states that he does not recall being disruptive. He states that he recently lost his job after approximately 3 years and was requesting discharge from the hospital in order to "get his life back on track". He adamantly refused any history of substance abuse. He was questioned about history of psychiatric problems, which he denied. The patient appeared to maintain capacity to make appropriate medical decisions, with a rational thought process and appeared to be of no harm to himself or others. The patient specifically denied suicidality or homicidality. Again, he denies any ingestion that prompted his abnormal behavior. DISPOSITION AND FOLLOWUP PLAN: The patient is being discharged to home. No changes were made to home medications. The patient ensured safety at the time of discharge. Recommend follow up with primary care provider regarding this hospitalization. TIME SPENT: Greater than 30 minutes were spent on this discharge. ELADIA SIMPSON [id number]/[facility] #: [id number] LEXI
[2017-09-20 15:53] LABS: Codeine, Ur Not Detected ng/mL (Cutoff: 25); Creatinine, Urine 78.2 mg/dL; Fentanyl, Ur Not Detected ng/mL (Cutoff: 2); Hydrocodone, Ur Not Detected ng/mL (Cutoff: 25); Hydromorphone, Ur Not Detected ng/mL (Cutoff: 25); Hydromorphone3betaglucuronide Present ng/mL; Morphine, Ur Present ng/mL (Cutoff: 25); Norfentanyl, Ur Present ng/mL (Cutoff: 2); Norhydrocodone, Ur Not Detected ng/mL (Cutoff: 25); Noroxycodone, Ur Not Detected ng/mL (Cutoff: 25); Oxycodone, Ur Not Detected ng/mL (Cutoff: 25); Oxymorphone, Ur Not Detected ng/mL (Cutoff: 25); Specific Gravity 1.008; Tramadol, Ur Not Detected ng/mL (Cutoff: 25); Urine Tetrahydrocannabinol Negative ng/mL (Cutoff: 50); pH 7.4
[2017-09-21 00:50] LABS: Ur Benzoylecgonine Confirm 162 ng/mL (Cutoff: 50); Urine Cocaine Confirm (GC/MS) Negative ng/mL (Cutoff: 50); Urine Cocaine Interpretation Positive.
== END 2017-09-15 10:15 | disposition home or self-care (01) | DRG 460 ==
LOC: ED 16:44 → INTOOBSV 22:09 → ICU 22:09 → MED 09-14 19:57
PROVIDERS: ADMIT Hospitalist; ATTEND Internal Medicine
DX: F15.129 Other stimulant abuse with intoxication, unspecified (principal); R06.81 Apnea, not elsewhere classified; N17.9 Acute kidney failure, unspecified; F17.200 Nicotine dependence, unspecified, uncomplicated; F14.90 Cocaine use, unspecified, uncomplicated; F12.90 Cannabis use, unspecified, uncomplicated; F11.90 Opioid use, unspecified, uncomplicated
CPT/HCPCS: 36415; 80048; 80053; 80307; 80320; 80329; 80353; 80364; 81003; 82550; 83735; 84443; 85025; 87641; 93005; 96372; 99285; A9270-GY; G0378; G0480; J1200; J1630; J2060; J2310; J3475

== ENCOUNTER 2018-04-16 17:04 | Emergency (ER) | payer OTHER ==
--- NOTE | 2018-04-16 17:27 | UC ---
Shoulder Pain HPI - HPI Summary HPI Summary: 39 yo male presents with RIGHT shoulder pain for the last 2 months. Worse with heavy lifting and when doing push ups. Has ok ROM. Denies specific injury. Denies numbness, tingling, neck pain, SOB, chest pain. - History of Current Complaint Stated Complaint: SHOULDER PAIN Time Seen by Provider: 04/16/18 17:27 Hx Obtained From: Patient Onset/Duration: Gradual Onset Severity Initially: Moderate Severity Currently: Moderate Pain Intensity: 5 Pain Scale Used: 0-10 Numeric Character: Aching Aggravating Factor(s): Movement, Lifting - Allergies/Home Medications Allergies/Adverse Reactions: Allergies Allergy/AdvReac Type Severity Reaction Status Date / Time No Known Allergies Allergy Verified 04/16/18 18:01 Home Medications: Home Medications Buprenorphine HCl/Naloxone HCl [Suboxone 12 mg-3 mg Sl Film] 24 mg PO DAILY [History Confirmed 04/16/18] LORazepam [Ativan 1 MG TAB] 1 mg PO Q6H PRN 04/16/18 [History Confirmed 04/16/18 ] PMH/Surg Hx/FS Hx/Imm Hx Psychological History: Anxiety Other History Of: Negative For: HIV, Hepatitis B, Hepatitis C, Anticoagulant Therapy - Surgical History Surgical History: Yes Surgery Procedure, Year, and Place: APPENDECTOMY - Family History Known Family History: Positive: Hypertension, Diabetes - Social History Lives: Alone Alcohol Use: Rare Substance Use Type: Prescribed Smoking Status (MU): Light Every Day Tobacco Smoker Review of Systems Constitutional: Negative Skin: Negative Respiratory: Negative Cardiovascular: Negative Neurovascular: Negative Musculoskeletal: Other: - Right shoulder pain Neurological: Negative Psychological: Negative All Other Systems Reviewed And Are Negative: Yes Physical Exam - Summary Physical Exam Summary: GENERAL: NAD. WDWN. No pain distress. SKIN: No rashes, sores, lesions, or open wounds. NECK: Supple. Nontender. No lymphadenopathy. CHEST: No accessory muscle use. Breathing comfortably and in no distress. CV: RRR. Without m/r/g. Pulses intact radial and ulnar. MSK: RIGHT shoulder: Mild TTP over AC joint. FROM. Strength 5/5 including prepleater strength. No edema or obvious bony deformities. Negative apleys, apprehension, empty can, esteves-jessica, neer, burk, and yergason tests. NEURO: Alert. Sensations intact C4-T1 PSYCH: Age appropriate behavior. Triage Information Reviewed: Yes Shoulder Course/Dx - Course Course Of Treatment: XR: IMPRESSION: Normal radiograph of the right shoulder. Suspect overuse injury vs RTC impingement. Advised RICE and ibuprofen. F/u with ortho - Differential Dx/Diagnosis Provider Diagnoses: Right shoulder pain Discharge - Sign-Out/Discharge Documenting (check all that apply): Discharge/Admit/Transfer - Discharge Plan Condition: Stable Disposition: HOME Patient Education Materials: Shoulder Pain (ED) Forms: *Gen. Provider Communication Referrals: Clay Joseph MD [Primary Care Provider] - Sid Chino MD [Medical Doctor] - As Soon As Possible Karen Gonsales MD [Medical Doctor] - As Soon As Possible Additional Instructions: If you develop a fever, shortness of breath, chest pain, new or worsening symptoms - please call your PCP or go to the ED. 1) Rest and ice your shoulder - please schedule a follow up appointment with Orthopedics as soon as possible for further evaluation - Billing Disposition and Condition Condition: STABLE Disposition: HOME
[2018-04-16 18:00] VITALS: BP 119/76
--- NOTE | 2018-04-16 18:54 | RAD ---
INDICATION: 1 month of right shoulder pain COMPARISON: None. TECHNIQUE: 4 views of the right shoulder were obtained. FINDINGS: The adequately corticated bones are in normal alignment. Joint spaces appear maintained. No fracture, dislocation or focal bony abnormality is seen. IMPRESSION: Normal radiograph of the right shoulder. If the patient's symptoms persist, follow-up imaging is recommended.
== END 2018-04-16 18:58 | disposition home or self-care (01) ==
LOC: UCEAST 17:04
DX: M25.511 Pain in right shoulder (principal); F41.9 Anxiety disorder, unspecified; F17.200 Nicotine dependence, unspecified, uncomplicated
CPT/HCPCS: 99211; G0463

== ENCOUNTER 2018-05-01 23:54 | Emergency (ER) | payer OTHER ==
--- NOTE | 2018-05-02 00:37 | ED ---
Lower Extremity - HPI Summary HPI Summary: Complains of pain to right ankle and bilateral LE edema x 4 days either after possible basketball injury or from house arrest ankle bracelet being too tight. Bracelet was cut off yesterday due to pain and swelling. Patient denies CP, SOB, abdominal pain, loss of sensation or function in lower extremities, fever, N/V, purulent drainage, history of gout or other joint disease. Patient has been under house arrest and has been "lying around a lot". Medical history is none. - History of Current Complaint Chief Complaint: EDExtremityLower Stated Complaint: RT ANKLE INJURY Time Seen by Provider: 05/02/18 00:18 Hx Obtained From: Patient Onset/Duration: Days Severity Currently: Severe Pain Intensity: 10 Timing: Constant Associated Signs And Symptoms: Positive: Swelling, Redness - Allergies/Home Medications Allergies/Adverse Reactions: Allergies Allergy/AdvReac Type Severity Reaction Status Date / Time No Known Allergies Allergy Verified 05/01/18 23:59 PMH/Surg Hx/FS Hx/Imm Hx Endocrine/Hematology History: Denies: Hx Anticoagulant Therapy, Hx Diabetes, Hx Thyroid Disease Comment Only: Other Endocrine/Hematological Disorders - unable to confirm at time of ICU assessment Cardiovascular History: Denies: Hx Congestive Heart Failure, Hx Deep Vein Thrombosis, Hx Hypertension , Hx Myocardial Infarction, Hx Pacemaker/ICD Respiratory History: Denies: Hx Asthma, Hx Chronic Obstructive Pulmonary Disease (COPD), Hx Lung Cancer, Hx Pneumonia, Hx Pulmonary Embolism Comment Only: Other Respiratory Problems/Disorders - unable to confirm at time of ICU assessment GI History: Denies: Hx Gall Bladder Disease, Hx Gastrointestinal Bleed, Hx Ulcer, Hx Urosepsis Comment Only: Other GI Disorders - unable to confirm at time of ICU assessment History: Denies: Hx Kidney Stones, Hx Renal Disease Comment Only: Other Problems/Disorders - unable to confirm at time of ICU assessment Sensory History: Denies: Hx Contacts or Glasses, Hx Hearing Aid Opthamlomology History: Denies: Hx Contacts or Glasses Neurological History: Denies: Hx Dementia, Hx Migraine, Hx Seizures, Hx Transient Ischemic Attacks (TIA) Comment Only: Other Neuro Impairments/Disorders - Unable to confirm at time of ICU assessment Psychiatric History: Reports: Hx Substance Abuse Denies: Hx Anxiety, Hx Eating Disorder, Hx Depression, Hx Schizophrenia, Hx Bipolar Disorder, Hx of Violent Episodes Against Others - Surgical History Surgery Procedure, Year, and Place: APPENDECTOMY Infectious Disease History: No Infectious Disease History: Denies: Traveled Outside the [place] in Last 30 Days - Family History Known Family History: Positive: Hypertension, Diabetes - Social History Alcohol Use: Rare Hx Substance Use: Yes Substance Use Type: Reports: Prescribed Substance Use Comment - Amount & Last Used: per RN report Hx Tobacco Use: Yes Smoking Status (MU): Light Every Day Tobacco Smoker Review of Systems Constitutional: Negative Eyes: Negative ENT: Negative Cardiovascular: Negative Respiratory: Negative Gastrointestinal: Negative Genitourinary: Negative Positive: Edema Skin: Negative Neurological: Negative Psychological: Normal All Other Systems Reviewed And Are Negative: Yes Physical Exam - Summary Physical Exam Summary: Pitting edema to bilateral lower extremities from mid parsons to ankle. Mild erythema to bilateral ankles. PMS intact, patient has full range of motion dorsiflexion and plantar flexion bilaterally with minimal pain.. Mild tenderness to distal anterior parsons proximal to right ankle. No indication of pain with palpation when patient is talking and distracted. No calf tenderness , erythema, tightness, extra warmth bilaterally. Negative Homans sign bilaterally. 2 small scabs on posterior right ankle which patient states are due to ankle bracelet. Wounds are clean dry and intact, no purulent drainage, extra warmth, redness. No deformity, ecchymosis to bilateral ankles or feet. Triage Information Reviewed: Yes Vital Signs On Initial Exam: Initial Vitals Temp Pulse Resp BP Pulse Ox 97.5 F 103 20 131/74 94 05/01/18 23:56 05/01/18 23:56 05/01/18 23:56 05/01/18 23:56 05/01/18 23:56 Vital Signs Reviewed: Yes Appearance: Positive: Well-Appearing Skin: Positive: Warm Head/Face: Positive: Normal Head/Face Inspection Eyes: Positive: Normal Neck: Positive: Supple Respiratory/Lung Sounds: Positive: Clear to Auscultation Cardiovascular: Positive: Normal Abdomen Description: Positive: Nontender Musculoskeletal: Positive: Normal Neurological: Positive: Normal Psychiatric: Positive: Normal AVPU Assessment: Alert - [place] Coma Scale Best Eye Response: 4 - Spontaneous Best Motor Response: 6 - Obeys Commands Best Verbal Response: 5 - Oriented Coma Scale Total: 15 Diagnostics - Vital Signs Vital Signs Temp Pulse Resp BP Pulse Ox 05/01/18 23:56 97.5 F 103 20 131/74 94 - Laboratory Lab Statement: Any lab studies that have been ordered have been reviewed, and results considered in the medical decision making process. - Radiology ankle Xray Interpretation: No Acute Changes Radiology Interpretation Completed By: ED Physician Re-Evaluation - Re-Evaluation 1 Re-Evaluation Time: 01:44 Comment: Patient appeared initially groggy and mumbling during physical exam of right ankle but when asked what he had taken, quickly snapped out of it and became completely coherent, appropriate, alert, asking questions and responding appropriately. When I went back into up-to-date patient on findings of x-ray patient was again very groggy and mumbling, unable to stay awake for the length of a sentence. Pupils are normal and reactive, neither pinpoint nor dilated. Patient is arousable and speaks coherently for a sentence and then nods off- again. Patient states he drove himself here. Will allow patient to sleep here in the room for a while and observe. 2 Re-Evaluation Time: 02:50 Comment: Patient started to insist that he could drive home, but has relented after conversation and negotiation. Patient will not take Medicaid cab as he does not want to leave his car here. Patient alternates between appearing to be clinically sober, alert and coherent and then extremely somnolent and mumbling when sitting down or lying down. Given the symptoms patient is not safe to drive. Patient is now generally cooperative, and now appears to understand the risk of driving home and the risk of injury to himself or others. Agrees to stay here and nap for a while. This appears to be the safest solution for all involved. Patient is ambulatory, walks with a mild limp but otherwise appears to be in no acute distress. Nicotine inhaler PRN will be added to orders in order to prevent patient from desiring to leave the building for cigarette if necessary Lower Extremity Course/Dx - Course Course Of Treatment: Complains of pain to right ankle and bilateral LE edema x 4 days either after possible basketball injury or from house arrest ankle bracelet being too tight. Bracelet was cut off yesterday due to pain and swelling. Patient denies CP, SOB, abdominal pain, loss of sensation or function in lower extremities, fever, N/V, purulent drainage, history of gout or other joint disease. Patient has been under house arrest and has been " lying around a lot". Medical history is none. Pitting edema to bilateral lower extremities from mid parsons to ankle. Mild erythema to bilateral ankles. PMS intact, patient has full range of motion dorsiflexion and plantar flexion bilaterally. Mild tenderness to distal anterior parsons proximal to right ankle. No indication of pain with palpation when patient is talking and distracted. No calf tenderness, erythema, tightness, extra warmth bilaterally. Negative Homans sign bilaterally. 2 small scabs on posterior right ankle which patient states are due to ankle bracelet. Wounds are clean dry and intact, no purulent drainage, extra warmth, redness. No deformity, ecchymosis to bilateral ankles or feet. X-ray of right ankle negative for acute process. Advised patient to wear compression stockings for bilateral peripheral edema. - Diagnoses Provider Diagnoses: Pitting edema, Superficial bruising of ankle Discharge - Sign-Out/Discharge Documenting (check all that apply): Discharge/Admit/Transfer - Discharge Plan Condition: Stable Disposition: HOME Patient Education Materials: Contusion in Adults (ED), Leg Edema (ED) Referrals: Clay Joseph MD [Primary Care Provider] - Additional Instructions: Try compression stockings, elevation and exercise for bilateral swelling. Tylenol or ibuprofen for ankle pain. Follow-up with primary care. Return to the ED for any new or worsening symptoms - Billing Disposition and Condition Condition: STABLE Disposition: Home
[2018-05-02] MEDS ORDERED: Acetaminophen TAB* 325 MG PO ONE (00:45)
[2018-05-02] MEDS ORDERED: Mouth Piece, Nicotine* 1 EACH CARTRIDGE INH ONE (02:56)
[2018-05-02] MEDS ORDERED: Nicotine Inhaler* 10 MG AMP INH PRN (02:56)
[2018-05-02 06:44] VITALS: BP 114/77
--- NOTE | 2018-05-02 07:56 | RAD ---
INDICATION: Ankle pain COMPARISON: None. TECHNIQUE: 3 views of the right ankle were obtained. FINDINGS: The bones are normal alignment. Joint spaces appear maintained. No fracture is seen. IMPRESSION: Normal ankle radiograph. If the patient's symptoms persist, follow-up imaging is recommended.
== END 2018-05-02 06:51 | disposition home or self-care (01) ==
LOC: ED 23:54
DX: S90.01XA Contusion of right ankle, initial encounter (principal); R60.9 Edema, unspecified; X58.XXXA Exposure to other specified factors, initial encounter; Y92.9 Unspecified place or not applicable
CPT/HCPCS: 99283; A9270-GY

== ENCOUNTER 2018-05-03 00:29 | Emergency (ER) | payer OTHER ==
[2018-05-03] MEDS ORDERED: Naloxone* 0.4 MG/ML 1 ML VIAL IV PUSH ONE (00:49)
[2018-05-03 01:14] LABS: ABS Basophils 0.1 10^3/ul (0-0.2); ABS Eosinophils 0.6 10^3/ul (0-0.6); ABS Lymphocytes 2.3 10^3/ul (1.0-4.8); ABS Monocytes 0.9 10^3/ul (0-0.8); ABS Neutrophils 3.8 10^3/ul (1.5-7.7); ABS Nucleated RBC 0 10^3/ul; Eosinophil % 7.9 % (0-6); Hematocrit 35 % (42-52); Hemoglobin 11.4 g/dl (14.0-18.0); Lymphocyte % 30.2 % (25-47); Mean Corpuscular HGB Conc 33 g/dl (31-36); Mean Corpuscular Hemoglobin 26 pg (27-31); Mean Corpuscular Volume 78 fL (80-94); Mean Platelet Volume 6.5 um3 (7.4-10.4); Nucleated Red Blood Cells % 0; Platelet Count 290 10^3/ul (150-450); Red Blood Count 4.41 10^6/ul (4.0-5.4); Red Cell Distribution Width 15 % (10.5-15); White Blood Count 7.7 10^3/ul (3.5-10.8)
--- NOTE | 2018-05-03 06:50 | ED ---
Antonio Montana Angela, scribed for Maribel Vazquez MD on 05/03/18 at 0057 . Substance Abuse/Use - HPI Summary HPI Summary: This pt is a 38 y/o male presenting to [facility] via EMS from home for suspected heroin and benzodiazepine overdose. EMS reports the pt's neighbor called 911. Per nurse, master police detective presented to the pt's house and could not awaken the pt sufficiently. Pt is currently lethargic and when awake he makes grunting sounds. Additionally pt was found to have multiple suboxone 12 mg packets. Pt was seen in the ED on 05/01/18 for right ankle pain. HPI IS LIMITED DUE TO LEVEL 5 CAVEAT - pt is lethargic - History Of Current Complaint Stated Complaint: SUBSTANCE ABUSE Time Seen by Provider: 05/03/18 00:34 Hx Obtained From: EMS, Other: - ED nurse Hx From Patient Unobtainable Due To: Other - Level 5 caveat - pt is lethargic Ingestion History: Type/Name Of Drug - heroin and benzo, Amount Ingested - unknown, Approximate Time Of Ingestion - unknown Timing Of Abuse: Binge Use - ? Severity Currently: Moderate Character: Lethargic Aggravating Factor(s): Nothing Alleviating Factor(s): Nothing Associated Signs And Symptoms: Altered Mental Status, Intentional Ingestion Related Hx: Prior Drug Abuse Counseling/Admission - Allergies/Home Medications Allergies/Adverse Reactions: Allergies Allergy/AdvReac Type Severity Reaction Status Date / Time No Known Allergies Allergy Verified 05/01/18 23:59 PMH/Surg Hx/FS Hx/Imm Hx Endocrine/Hematology History: Denies: Hx Anticoagulant Therapy, Hx Diabetes, Hx Thyroid Disease Comment Only: Other Endocrine/Hematological Disorders - unable to confirm at time of ICU assessment Cardiovascular History: Denies: Hx Congestive Heart Failure, Hx Deep Vein Thrombosis, Hx Hypertension , Hx Myocardial Infarction, Hx Pacemaker/ICD Respiratory History: Denies: Hx Asthma, Hx Chronic Obstructive Pulmonary Disease (COPD), Hx Lung Cancer, Hx Pneumonia, Hx Pulmonary Embolism Comment Only: Other Respiratory Problems/Disorders - unable to confirm at time of ICU assessment GI History: Denies: Hx Gall Bladder Disease, Hx Gastrointestinal Bleed, Hx Ulcer, Hx Urosepsis Comment Only: Other GI Disorders - unable to confirm at time of ICU assessment History: Denies: Hx Kidney Stones, Hx Renal Disease Comment Only: Other Problems/Disorders - unable to confirm at time of ICU assessment Sensory History: Denies: Hx Contacts or Glasses, Hx Hearing Aid Opthamlomology History: Denies: Hx Contacts or Glasses Neurological History: Denies: Hx Dementia, Hx Migraine, Hx Seizures, Hx Transient Ischemic Attacks (TIA) Comment Only: Other Neuro Impairments/Disorders - Unable to confirm at time of ICU assessment Psychiatric History: Reports: Hx Substance Abuse Denies: Hx Anxiety, Hx Eating Disorder, Hx Depression, Hx Schizophrenia, Hx Bipolar Disorder, Hx of Violent Episodes Against Others - Surgical History Surgery Procedure, Year, and Place: APPENDECTOMY - Family History Known Family History: Positive: Hypertension, Diabetes - Social History Alcohol Use: Rare Hx Substance Use: Yes Substance Use Type: Reports: Prescribed Substance Use Comment - Amount & Last Used: per RN report Hx Tobacco Use: Yes Smoking Status (MU): Light Every Day Tobacco Smoker Review of Systems - ROS Summary Review of Systems Summary: ROS IS LIMITED DUE TO LEVEL 5 CAVEAT - pt is lethargic Negative: Fever Neurological: Other - POS: making grunting noises, altered mental status All Other Systems Reviewed And Are Negative: No Physical Exam - Summary Physical Exam Summary: VITAL SIGNS: Reviewed. GENERAL: Patient is a well-developed and nourished male who is lying comfortable in the stretcher. Patient is not in any acute respiratory distress. HEAD AND FACE: No signs of trauma. No ecchymosis, hematomas or skull depressions. No sinus tenderness. EYES: EOMI x 2, Pinpoint pupils bilaterally. No injected conjunctiva, no nystagmus. EARS: Hearing grossly intact. Ear canals and tympanic membranes are within normal limits. MOUTH: Oropharynx within normal limits. NECK: Supple, trachea is midline, no adenopathy, no JVD, no carotid bruit, no c- spine tenderness, neck with full ROM. CHEST: Symmetric, no tenderness at palpation LUNGS: Clear to auscultation bilaterally. No wheezing or crackles. CVS: Regular rate and rhythm, S1 and S2 present, no murmurs or gallops appreciated. ABDOMEN: Soft, non-tender. No signs of distention. No rebound no guarding, and no masses palpated. Bowel sounds are normal. EXTREMITIES: FROM in all major joints, no edema, no cyanosis or clubbing. NEURO: Pt is snoring but is arousable. When awake he makes noises. SKIN: Dry and warm Triage Information Reviewed: Yes Vital Signs Reviewed: Yes Completion Of Physical Exam Limited Due To: Level 5 - pt is lethargic Diagnostics - Laboratory Result Diagrams: 05/03/18 01:02 05/03/18 01:02 Lab Statement: Any lab studies that have been ordered have been reviewed, and results considered in the medical decision making process. - EKG 00:59 Cardiac Rate: NL - at 91 bpm EKG Rhythm: Sinus Rhythm EKG Interpretation: Normal axis. Normal interval. No ischemic changes Re-Evaluation - Re-Evaluation First Eval Re-Evaluation Time: 01:10 Change: Improved Comment: Pt was given Narcan. He is more awake and alert now. He states "where am I?" Pupils are now dilated. Second Eval Re-Evaluation Time: 04:14 Change: Unchanged Comment: Pt is sleeping. Third Eval Re-Evaluation Time: 05:48 Change: Unchanged Comment: Pt is still sleeping. He is stable. Fourth Eval Re-Evaluation Time: 06:22 Change: Unchanged Comment: Pt continues to sleep. Course/Dx - Course Assessment/Plan: Pt is a 38 y/o male presenting to [facility] via EMS from home for suspected heroin and benzodiazepine overdose. EMS reports the pt's neighbor called 911. Per nurse, master police detective presented to the pt's house and could not awaken the pt sufficiently. Pt is currently lethargic. Additionally pt was found to have multiple suboxone 12 mg packets. In the ED course the pt was given Narcan. After Narcan, pt became more alert and awake. Pt has been sleeping through the night, resting comfortable. Pt will be signed out to Dr. Tijerina, pending disposition, awaiting sobriety. - Diagnoses Provider Diagnoses: Substance abuse Discharge - Sign-Out/Discharge Documenting (check all that apply): Sign-Out Patient Signing out patient TO: Ambrosio Tijerina - pending dispo, awaiting sobriety - Discharge Plan Condition: Stable Referrals: Clay Joseph MD [Primary Care Provider] - The documentation as recorded by the Antonio mcginnis Angela accurately reflects the service I personally performed and the decisions made by me, Maribel Vazquez MD.
[2018-05-03 10:22] VITALS: BP 126/93
== END 2018-05-03 10:17 | disposition home or self-care (01) ==
LOC: ED 00:29
DX: F19.10 Other psychoactive substance abuse, uncomplicated (principal); F17.200 Nicotine dependence, unspecified, uncomplicated
CPT/HCPCS: 36415; 80053; 80320; 80329; 84443; 85025; 93005; 96374; 99285; G0480; J2310

== ENCOUNTER 2018-05-03 17:13 | Emergency (ER) | payer OTHER ==
[2018-05-03 17:33] VITALS: BP 123/76
[2018-05-03] MEDS ORDERED: Naloxone Nasal Spray* 4 MG/0.1 ML NASAL.SPR NASAL PRN (17:45)
--- NOTE | 2018-05-03 18:11 | UC ---
Lower Extremity/Ankle HPI - HPI Summary HPI Summary: Patient was obtunded when initially seen, not responding to verbal or physical prompts to wake up. After intranasal dose of Narcan, patient was responsive. States he has bilateral leg swelling and mild pain for the past 6 days. He had an ankle bracelet for home arrest which was removed 5 days ago. States he has been taking a diuretic but upon further questioning, it is a cranberry pill "because he has problems urinating due to the suboxone". States he suspects he has sleep apnea and he snores, questionable SOB at night. He went to the ER this security agent and received a dose of narcan there as well. He states he took 2 tablets of ativan prior to coming here. Denies chills or fever. Ankle xray and EKG were normal . He received an SARAH wrap on right ankle. CBC showed mild anemia, WBC was within normal limits. BMP shows mild elevation of Creatine Kinase - History of Current Complaint Chief Complaint: UCLowerExtremity Stated Complaint: SWOLLEN ANKLE Time Seen by Provider: 05/03/18 17:41 Hx Obtained From: Patient Onset/Duration: Gradual Onset, Lasting Days Severity Initially: Mild Severity Currently: Moderate Pain Intensity: 7 Aggravating Factor(s): Ambulation Alleviating Factor(s): Nothing Able to Bear Weight: Yes - Risk Factors Gout Risk Factors: Male DVT Risk Factors: Negative Septic Arthritis Risk Factor: IV Drug Abuse - Allergies/Home Medications Allergies/Adverse Reactions: Allergies Allergy/AdvReac Type Severity Reaction Status Date / Time No Known Allergies Allergy Verified 05/03/18 17:33 PMH/Surg Hx/FS Hx/Imm Hx Previously Healthy: Yes Other History Of: Negative For: HIV, Hepatitis B, Hepatitis C, Anticoagulant Therapy - Surgical History Surgical History: Yes Surgery Procedure, Year, and Place: APPENDECTOMY - Family History Known Family History: Positive: Hypertension, Diabetes - Social History Alcohol Use: Rare Substance Use Type: Cocaine, Heroin, Prescribed, Sedatives Substance Use Comment - Amount & Last Used: per RN report Smoking Status (MU): Light Every Day Tobacco Smoker Type: Cigarettes Review of Systems Constitutional: Negative Musculoskeletal: Edema All Other Systems Reviewed And Are Negative: Yes Physical Exam Triage Information Reviewed: Yes Appearance: Obese, Other: - obtunded Vital Signs: Initial Vital Signs Temp 98.4 F 06/08/18 17:28 Pulse 81 05/03/18 17:28 Resp 18 05/03/18 17:28 BP 123/76 05/03/18 17:28 Pulse Ox 99 05/03/18 17:28 Vital Signs Reviewed: Yes Eyes: Positive: Conjunctiva Clear ENT: Positive: Pharynx normal Neck: Positive: Supple, Nontender, No Lymphadenopathy Respiratory: Positive: Chest non-tender, Lungs clear, Normal breath sounds Cardiovascular: Positive: RRR, No Murmur, Pulses Normal, Brisk Capillary Refill Abdomen Description: Positive: Nontender, No Organomegaly, Soft Musculoskeletal: Positive: Edema @ - b/l leg pitting edema 2+, with venous congestion, no discharge, pulses present, capillary refill brisk Neurological: Positive: Lethargic Skin Exam: Normal Lower Extremity Course/Dx - Course Course Of Treatment: Patient with b/l leg edema, possibly vascular insufficiency , history of polysubstance abuse. Patient responded to Narcan first dose but became obtunded again and a second dose was administered. Patient's CXR was normal, discussed with him results. Given his state of consciousness, informed patient that police was going to be called to escort him home for safety reasons. Patient refused and left ER before signing AMA and drove away on his car. - Differential Dx/Diagnosis Provider Diagnoses: bilateral pedal edema. cellulitis Discharge - Sign-Out/Discharge Documenting (check all that apply): Discharge/Admit/Transfer - Discharge Plan Condition: Guarded Disposition: ELOPEMENT Prescriptions: Clindamycin HCl 300 mg PO TID 7 Days #21 capsule Referrals: Clay Joseph MD [Primary Care Provider] - - Billing Disposition and Condition Condition: GUARDED Disposition: Elopement
--- NOTE | 2018-05-03 18:30 | RAD ---
Indication: Dyspnea. 2 views of the chest including dual energy PA views demonstrates no mediastinal shift. Heart is of normal size and configuration. Lung gomes appear clear. When compared to previous exam of February 04, 2016 no significant change is noted. IMPRESSION: No active cardiopulmonary disease is noted.
[2018-05-03] MEDS ORDERED: Naloxone Nasal Spray* 4 MG/0.1 ML NASAL.SPR NASAL ONE (20:17)
== END 2018-05-03 18:55 | disposition left against medical advice (07) ==
LOC: UCEAST 17:13
DX: R60.0 Localized edema (principal); L03.116 Cellulitis of left lower limb; L03.115 Cellulitis of right lower limb; R53.83 Other fatigue; Z90.89 Acquired absence of other organs; Z82.49 Family history of ischemic heart disease and other diseases of the circulatory system; Z83.3 Family history of diabetes mellitus; F17.210 Nicotine dependence, cigarettes, uncomplicated
CPT/HCPCS: 71046; 99213; A9270-GY; G0463

== ENCOUNTER 2018-06-19 16:35 | Emergency (ER) | payer OTHER ==
[2018-06-19 16:58] VITALS: BP 115/71
--- NOTE | 2018-06-19 17:09 | UC ---
Lower Extremity/Ankle HPI - HPI Summary HPI Summary: This is ras Daniels documenting for attending Huy Butcher MD. This patient is a 38 year old M presenting to [facility] with a chief complaint of right ankle pain since approximately 1 month ago. The patient reports that his ankle monitor has been contributing to his pain. The patient rates the pain 6/ 10 in severity. Symptoms aggravated by nothing. Symptoms alleviated by nothing. Patient reports he has been ambulating with a limp. Patient denies knee pain. - History of Current Complaint Chief Complaint: UCLowerExtremity Stated Complaint: FOOT COMPLAINT Hx Obtained From: Patient Onset/Duration: Gradual Onset, Still Present Severity Initially: Mild Severity Currently: Mild Pain Intensity: 6 Pain Scale Used: 0-10 Numeric Alleviating Factor(s): Nothing - Allergies/Home Medications Allergies/Adverse Reactions: Allergies Allergy/AdvReac Type Severity Reaction Status Date / Time No Known Allergies Allergy Verified 06/19/18 16:58 PMH/Surg Hx/FS Hx/Imm Hx Previously Healthy: Yes Other History Of: Negative For: HIV, Hepatitis B, Hepatitis C, Anticoagulant Therapy - Surgical History Surgical History: Yes Surgery Procedure, Year, and Place: APPENDECTOMY - Family History Known Family History: Positive: Hypertension, Diabetes - Social History Alcohol Use: Weekly Substance Use Type: Cocaine, Heroin, Prescribed, Sedatives Substance Use Comment - Amount & Last Used: per RN report Smoking Status (MU): Light Every Day Tobacco Smoker Type: Cigarettes Review of Systems Constitutional: Negative - negative fever Respiratory: Negative - negative cough Gastrointestinal: Negative - negative vomiting Musculoskeletal: Arthralgia - ankle pain All Other Systems Reviewed And Are Negative: Yes Physical Exam - Summary Physical Exam Summary: General: well-appearing, no pain distress Skin: warm, color reflects adequate perfusion, dry, no erythema, no skin breaks Head: normal Eyes: EOMI, RAVEN ENT: normal Neck: supple, nontender Respiratory: CTA, breath sounds present Cardiovascular: RRR Abdomen: soft, nontender Bowel: present Musculoskeletal: normal, strength/ROM intact, swelling and tenderness to lateral lower leg at distal aspect about 10cm above right ankle, normal capillary refill, normal pulses, knee is nontender, ankle exam is normal Neurological: sensory/motor intact, A&O x3 Psychological: affect/mood appropriate Triage Information Reviewed: Yes Vital Signs: Initial Vital Signs Temp 97.6 F 06/19/18 16:51 Pulse 77 06/19/18 16:51 Resp 14 06/19/18 16:51 BP 115/71 06/19/18 16:51 Pulse Ox 100 06/19/18 16:51 Vital Signs Reviewed: Yes Diagnostics - Radiology Right Lower Leg XR Xray Interpretation: Positive (See Comments) - IMPRESSION: TRANSVERSE NONDISPLACED SUBACUTE HEALING FRACTURE OF THE DISTAL FIBULA. Dr. Butcher has reviewed this report. Radiology Interpretation Completed By: Radiologist Lower Extremity Course/Dx - Course Course Of Treatment: DISCUSSED X-RAY RESULTS WITH THE PATIENT. THE PLAN WAS TO PLACE IN A U SPLINT, USE CRUTCHES AND F/U ORTHOPEDICS. THE PATIENT DECLINED THE SPLINT AND CRUTCHES. F/U ORTHOPEDICS. I RECOMMENDED MINIMIZING USE OF THE LEG UNTIL AFTER CLEARED BY ORTHOPEDICS. PATIENT REQUESTED ABX RX FOR ACNE. F/U PMD AND ORTHOPEDICS; RECHECK SOONER IF WORSE. - Differential Dx/Diagnosis Provider Diagnoses: RIGHT DISTAL FIBULA FRACTURE Discharge - Sign-Out/Discharge Documenting (check all that apply): Patient Departure - Discharge Plan Condition: Stable Disposition: HOME Prescriptions: DOXYcycline CAP(*) [DOXYcycline 100MG CAP(*)] 100 mg PO BID #20 cap Ibuprofen TAB* [Motrin TAB* 600 MG] 600 mg PO Q6H PRN #30 tab PRN Reason: Pain Patient Education Materials: Leg Fracture (ED) Forms: *Work Release Referrals: [facility] [Provider Group] Clay Joseph MD [Primary Care Provider] - Perla Balbuena MD [Medical Doctor] - Additional Instructions: FOLLOW UP WITH ORTHOPEDICS. REST YOUR LEG UNTIL YOU SEE ORTHOPEDICS. YOU DECLINED SPLINTING IN THE URGENT CARE CLINIC DUE TO CONCERN OF INCREASED RISK OF FALLING. RETURN TO THE CLINIC ANYTIME IF YOU CHANGE YOUR MIND AND WISH TO HAVE A SPLINT PLACED. GET RECHECKED FOR ANY WORSENING OF YOUR CONDITION OR QUESTIONS OR CONCERNS. - Billing Disposition and Condition Condition: STABLE Disposition: Home
[2018-06-19] MEDS ORDERED: Ibuprofen TAB* 600 MG PO ONE (17:20)
--- NOTE | 2018-06-19 17:57 | RAD ---
INDICATION: Right lower leg injury. COMPARISON: Comparison is made with a prior x-ray study of the right ankle from May 02, 2018. TECHNIQUE: 2 views of the right lower leg were obtained. FINDINGS: There is a transverse subacute fracture of the distal diaphysis of the fibula. The fracture fragments are nondisplaced. There is prominent bony callus present. IMPRESSION: TRANSVERSE NONDISPLACED SUBACUTE HEALING FRACTURE OF THE DISTAL FIBULA.
== END 2018-06-19 18:32 | disposition home or self-care (01) ==
LOC: UCEAST 16:35
DX: S82.831A Other fracture of upper and lower end of right fibula, initial encounter for closed fracture (principal); X58.XXXA Exposure to other specified factors, initial encounter; Y92.9 Unspecified place or not applicable
CPT/HCPCS: 99212; A9270-GY; G0463

== ENCOUNTER 2018-09-05 16:25 | Emergency (ER) | payer OTHER ==
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
[2018-09-05 18:58] VITALS: BP 133/72
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
== END 2018-09-05 18:55 | disposition home or self-care (01) ==
LOC: ED 16:25
DX: M54.2 Cervicalgia (principal); M54.6 Pain in thoracic spine; F17.210 Nicotine dependence, cigarettes, uncomplicated
CPT/HCPCS: 72050; 72070; 99281

== ENCOUNTER 2019-01-29 10:20 | Inpatient (IN) | payer OTHER ==
--- NOTE | 2019-01-29 10:49 | ED ---
Substance Abuse/Use - HPI Summary HPI Summary: LEVEL 5 CAVEAT: HPI LIMITED DUE TO PATIENT CONDITION, POOR HISTORIAN. A 38 y/o M presents to ED with c/o worsening anxiety. He says he hasn't been sleeping well. He appears somnolent and snores at bedside. He states drinking ETOH with his friends. He denies drug use today and yesterday, but has taken mushrooms previously. Denies SI. He took his BP medication. Patient is not acting or answering questions appropriately at bedside. - History Of Current Complaint Chief Complaint: EDGeneral Stated Complaint: NEEDS MEDS ADJUSTED PER PT Hx Obtained From: Patient Ingestion History: Type/Name Of Drug - ETOH Associated Signs And Symptoms: Other: - denies SI. - Allergies/Home Medications Allergies/Adverse Reactions: Allergies Allergy/AdvReac Type Severity Reaction Status Date / Time No Known Allergies Allergy Verified 01/29/19 10:28 Home Medications: Home Medications Atomoxetine(NF) [Strattera(NF)] 50 mg PO DAILY 01/29/19 [History Confirmed 01/29] Buprenorphine HCl/Naloxone HCl [Suboxone] 1 film SL BID 01/29/19 [History Confirmed 01/29/19] Gabapentin CAP(*) [Neurontin 400 mg CAP(*)] 800 mg PO BID 01/29/19 [History Confirmed 01/29/19] LORazepam TAB(*) [Ativan 1 MG TAB (*)] 1 mg PO Q8H PRN 01/29/19 [History Confirmed 01/29/19] Zolpidem TAB* [Ambien TAB*] 10 mg PO BEDTIME PRN 01/29/19 [History Confirmed 05/14] PMH/Surg Hx/FS Hx/Imm Hx Previously Healthy: No Endocrine/Hematology History: Denies: Hx Anticoagulant Therapy, Hx Diabetes, Hx Thyroid Disease Comment Only: Other Endocrine/Hematological Disorders - unable to confirm at time of ICU assessment Cardiovascular History: Denies: Hx Congestive Heart Failure, Hx Deep Vein Thrombosis, Hx Hypertension , Hx Myocardial Infarction, Hx Pacemaker/ICD Respiratory History: Denies: Hx Asthma, Hx Chronic Obstructive Pulmonary Disease (COPD), Hx Lung Cancer, Hx Pneumonia, Hx Pulmonary Embolism Comment Only: Other Respiratory Problems/Disorders - unable to confirm at time of ICU assessment GI History: Denies: Hx Gall Bladder Disease, Hx Gastrointestinal Bleed, Hx Ulcer, Hx Urosepsis Comment Only: Other GI Disorders - unable to confirm at time of ICU assessment History: Denies: Hx Kidney Stones, Hx Renal Disease Comment Only: Other Problems/Disorders - unable to confirm at time of ICU assessment Sensory History: Denies: Hx Contacts or Glasses, Hx Hearing Aid Opthamlomology History: Denies: Hx Contacts or Glasses Neurological History: Denies: Hx Dementia, Hx Migraine, Hx Seizures, Hx Transient Ischemic Attacks (TIA) Comment Only: Other Neuro Impairments/Disorders - Unable to confirm at time of ICU assessment Psychiatric History: Reports: Hx Substance Abuse Denies: Hx Anxiety, Hx Eating Disorder, Hx Depression, Hx Schizophrenia, Hx Bipolar Disorder, Hx of Violent Episodes Against Others - Surgical History Surgery Procedure, Year, and Place: APPENDECTOMY Infectious Disease History: No Infectious Disease History: Denies: Traveled Outside the [place] in Last 30 Days - Family History Known Family History: Positive: Hypertension, Diabetes - Social History Occupation: Unemployed - OTHER Lives: Alone Alcohol Use: Weekly Hx Substance Use: Yes Substance Use Type: Reports: Cocaine, Heroin, Prescribed, Sedatives Substance Use Comment - Amount & Last Used: per RN report Hx Tobacco Use: Yes Smoking Status (MU): Light Every Day Tobacco Smoker Type: Cigarettes Review of Systems - ROS Summary Review of Systems Summary: LEVEL 5 CAVEAT: ROS LIMITED DUE TO PATIENT CONDITION, POOR HISTORIAN Negative: Fever Psychological: Other - NEG: SI Positive: Anxious All Other Systems Reviewed And Are Negative: No Physical Exam - Summary Physical Exam Summary: VITAL SIGNS: Reviewed. GENERAL: Patient is a well-developed and nourished MALE. Patient is not in any acute respiratory distress. HEAD AND FACE: No signs of trauma. No ecchymosis, hematomas or skull depressions. No sinus tenderness. EYES: PERRLA, EOMI x 2, No injected conjunctiva, no nystagmus. EARS: Hearing grossly intact. Ear canals and tympanic membranes are within normal limits. MOUTH: Oropharynx within normal limits. NECK: Supple, trachea is midline, no adenopathy, no JVD, no carotid bruit, no c- spine tenderness, neck with full ROM. CHEST: Symmetric, no tenderness at palpation LUNGS: Clear to auscultation bilaterally. No wheezing or crackles. CVS: Regular rate and rhythm, S1 and S2 present, no murmurs or gallops appreciated. ABDOMEN: Soft, non-tender. No signs of distention. No rebound, no guarding, and no masses palpated. Bowel sounds are normal. EXTREMITIES: FROM in all major joints, no edema, no cyanosis or clubbing. NEURO: Alert and oriented x 3. No acute neurological deficits. Speech is normal and follows commands. SKIN: Dry and warm PSYCH: Agitated, manic, nervous, maybe psychotic. Triage Information Reviewed: Yes Vital Signs On Initial Exam: Initial Vitals Temp Pulse Resp BP Pulse Ox 98.9 F 111 18 101/74 98 01/29/19 10:23 01/29/19 10:23 01/29/19 10:23 01/29/19 10:23 01/29/19 10:23 Vital Signs Reviewed: Yes Diagnostics - Vital Signs Vital Signs Temp Pulse Resp BP Pulse Ox 01/29/19 10:23 98.9 F 111 18 101/74 98 - Laboratory Result Diagrams: 01/29/19 11:10 01/29/19 11:10 Lab Statement: Any lab studies that have been ordered have been reviewed, and results considered in the medical decision making process. - Radiology CXR Radiology Interpretation Completed By: Radiologist Summary of Radiographic Findings: IMPRESSION: ET TUBE IS AT THE LEVEL OF T3. INTERSTITIAL EDEMA CONSISTENT WITH VASCULAR CONGESTION IS NOTED. ED provider has reviewed this report. - EKG 12:07 Cardiac Rate: Tachycardia - 107 bpm EKG Rhythm: Sinus Tachycardia Summary of EKG Findings: No ST elevation. Nml axis. Re-Evaluation - Re-Evaluation 1 Re-Evaluation Time: 12:02 Change: Worse Comment: Pt is acting bizarelly. Yelling, snoring loudly, blowing raspberries, hitting himself. Being uncooperative. I reviewed his labs, showing elevated creatinine, will order EKG and fluids. 2 Re-Evaluation Time: 12:52 Change: Unchanged Comment: Dr. Macdonald, personnel generalist manager, and ED provider at bedside. Patient given Narcan 2mg IV and he awoke. However, quickly became somnulent again. Dr. Macdonald recommends a narcan drip, and reassessment in 30 minutes. Pt may be admitted to ICU if necessary. 3 Re-Evaluation Time: 13:13 Change: Worse Comment: Pt is biting and kicking at staff. Pt will be restrained. 4 Re-Evaluation Time: 13:53 Change: Worse Comment: Pt is having episodes of hypoxia going into the 70s, then he wakes up becoming agitated and a danger to himself and others. At this time, we will intubate patient for airway protection. 5 Re-Evaluation Time: 14:15 Change: Unchanged Comment: I was told by respiratory therapist that the ET tube may have disloged. Using the glidescope, I confirmed the ET tube is in place. Course/Dx - Course Course Of Treatment: Procedure - Endotracheal Intubation. Permission was implied secondary to emergent situation. An LMA and bougie were placed within arm's reach. A Glidescope blade was inserted into the oropharynx at which time the vocal cords were visualized. A 7.5 Togolese endotracheal tube was inserted and visualized going through the vocal cords. The stylet was removed. Colorimetric change was visualized on the CO2 meter. Breath sounds were heard in both lung gomes equally. The endotracheal tube was placed at 23 cm, measured at the teeth. Portable chest x-ray ordered for confirmation of tube level. Post intubation sedation ordered. Intubation was made at the first attempt. No complications were encountered. Assessment/Plan: 38-year-old male who presents to the emergency department with a chief complaint of agitation, anxiety, unable to sleep. The patient seems to be under the influence of a substance, however the patient reports that he only had a couple drinks. However the patient is somnolent and he falls asleep during the examination. Blood work is without any significant abnormality except for slight anemia, creatinine 1.44, glucose 105, CPK of 416. Patient continues to have these odd behavior, the patient is desaturating when he goes to sleep, therefore I ordered an ABG. The ABG shows a pH of 7,35, PO2 is 50, PO2 64, O2 sat is 99.1. Unable to obtain any urinalysis at this point. The patient is still agitated and bizarre, therefore, since I am unable to find out what the patient took, I discussed the case with Dr. Macdonald from the ICU services who will assess the patient. After her assessment, she requested giving Narcan which woke up the patient. Now he has become very violent, agitated, with bizarre behavior. The patient is unsafe at this time, he is a danger to himself and others. Therefore, for airway protection and safety I decided to intubate this patient. Please see intubation note. At this time I informed Dr. Macdonald that the patient was intubated. The patient was accepted to her services. At this point the patient is hemodynamically stable and he is intubated. He was combative and respiratory therapist reported that the tube might have dislodged. Therefore I took a second look with a Glidescope and I visually confirmed that the tube is in place. The patient was given a bolus of propofol, Ativan for sedation. - Diagnoses Provider Diagnoses: Altered mental status, Agitation, Hypoxia - Physician Notifications Discussed Care Of Patient With: Tran Macdonald - ICU Time Discussed With Above Provider: 12:30 Instructed by Provider To: MD Will See In ED - Consulted again at approx 1320: will admit pt to ICU. Consulted at 1407: Updated that patient was incubated in ED. - Critical Care Time Critical Care Time: 75-104 min Discharge - Sign-Out/Discharge Documenting (check all that apply): Patient Departure - ICU - Discharge Plan Condition: Stable Disposition: ADMITTED TO [facility] - Billing Disposition and Condition Condition: STABLE Disposition: Admitted to [facility] - Attestation Statements Document Initiated by Mitch: Yes Documenting Scribe: Gary Aguilar Provider For Whom Mitch is Documenting (Include Credential): Dr. Justin Sung MD Scribe Attestation: IGary, scribed for Dr. Justin Sung MD on 01/29/19 at 2222. Scribe Documentation Reviewed: Yes Provider Attestation: The documentation as recorded by the Gary mcginnis accurately reflects the service I personally performed and the decisions made by me, Dr. Justin Sung MD Status of Scribe Document: Viewed
[2019-01-29] MEDS ORDERED: LORazepam TAB(*) 1 MG ONE (10:58)
[2019-01-29] MEDS ORDERED: diPHENhydraMINE PO* 25 MG ONE (10:59)
[2019-01-29] MEDS ORDERED: LORazepam TAB(*) 1 MG PO ONE (10:59)
[2019-01-29] MEDS ORDERED: diPHENhydraMINE PO* 25 MG PO ONE (11:00)
[2019-01-29 11:22] LABS: ABS Basophils 0.1 10^3/ul (0-0.2); ABS Eosinophils 0.5 10^3/ul (0-0.6); ABS Lymphocytes 1.9 10^3/ul (1.0-4.8); ABS Monocytes 0.9 10^3/ul (0-0.8); ABS Neutrophils 4.5 10^3/ul (1.5-7.7); ABS Nucleated RBC 0 10^3/ul; Hematocrit 36 % (42-52); Hemoglobin 11.6 g/dl (14.0-18.0); Lymphocyte % 24.2 %; Mean Corpuscular HGB Conc 32 g/dl (31-36); Mean Corpuscular Hemoglobin 26 pg (27-31); Mean Corpuscular Volume 79 fL (80-94); Mean Platelet Volume 6.8 fL (7.4-10.4); Nucleated Red Blood Cells % 0.1; Platelet Count 361 10^3/ul (150-450); Red Blood Count 4.54 10^6/ul (4.00-5.40); Red Cell Distribution Width 15 % (10.5-15); White Blood Count 7.9 10^3/ul (3.5-10.8)
[2019-01-29 11:36] LABS: ALT 18 U/L (7-52); AST 26 U/L (13-39); Albumin/Globulin Ratio 1.2 (1-3); Alkaline Phosphatase 44 U/L (34-104); Anion Gap 7 mmol/L (2-11); BUN/Creatinine Ratio 9.7 (8-20); Blood Urea Nitrogen 14 mg/dL (6-24); CO2 Carbon Dioxide 26 mmol/L (22-32); Calcium 9.5 mg/dL (8.6-10.3); Chloride 107 mmol/L (101-111); Creatine Kinase 416 U/L (10-223); EGFR African American 66.4 (>60); EGFR Non-African American 54.9 (>60); Globulin 3.4 g/dL (2-4); Glucose 105 mg/dL (70-100); Sodium 140 mmol/L (135-145); Total Protein 7.4 g/dL (6.4-8.9)
[2019-01-29 12:07] LABS: Acetaminophen < 15 mcg/mL; Alcohol < 10 mg/dL (<10); Salicylate < 2.50 mg/dL (<30)
[2019-01-29 12:21] LABS: TSH (Thyroid Stimulating Horm) 0.94 mcIU/mL (0.34-5.60)
[2019-01-29] MEDS: NS 0.9% 1000 ML** 2,000 ML IV ONE (12:27)
[2019-01-29] MEDS ORDERED: Naloxone* 0.4 MG/ML 1 ML VIAL IV PUSH ONE (12:48)
[2019-01-29] MEDS ORDERED: Ondansetron INJ* 2 MG/ML VIAL IV ONE (12:48)
[2019-01-29] MEDS ORDERED: Ondansetron INJ* 2 MG/ML VIAL ONE (12:50)
[2019-01-29] MEDS ORDERED: Naloxone* 0.4 MG/ML 10 ML VIAL ONE (12:50)
[2019-01-29] MEDS ORDERED: Haloperidol INJ IV/IM* 5 MG/ML AMP ONE (13:16)
[2019-01-29] MEDS ORDERED: LORazepam INJ* 2 MG/ML 1 ML VIAL ONE (13:17)
[2019-01-29] MEDS ORDERED: LORazepam INJ* 2 MG/ML 1 ML VIAL IV PUSH ONE (13:19)
[2019-01-29] MEDS ORDERED: Haloperidol INJ IV/IM* 5 MG/ML AMP IM ONE (13:19)
--- NOTE | 2019-01-29 13:26 | HP ---
History of Present Illness - History of Present Illness Reason for Visit: Acute encephalopathy History of Present Illness: CRITICAL CARE- INTIAL NOTE 38 YO M with previous admission for polysubstance overdose associated encephalopathy brought in to the ED by police after finding him screaming and for manic behaviour. History was obtained from chart review due to patient's altered mental status. Prior to this patient was noted to be screaming and acting violently. He was given Benadryl and ativan for this behavior. Patient was noted to be hemodynamically stable in deep sleep snoring with desaturation to 80% on RA. We administered 2 mg of narcan with the patient instantly waking up. According, to the ED physician patient then became violent again. - Past Medical History Psych: Addictions - Unable to obtain due to patient's mental status - Past Social History Drugs: Cocaine, Heroin - history of alcohol abuse Review of Systems - Review of Systems Respiratory: Positive: Shortness of Breath Neurological: Positive: Confusion - Unable to obtain due to patient's mental status - Medications/Allergies Allergies/Adverse Reactions: Allergies Allergy/AdvReac Type Severity Reaction Status Date / Time No Known Allergies Allergy Verified 01/29/19 10:28 Medications: Current Medications Sodium Chloride (Ns 0.9% 1000 Ml) 2,000 mls @ 1,000 mls/hr IV .PER RATE ONE Stop: 01/29/19 13:58 Last Admin: 01/29/19 12:27 Dose: 1,000 mls/hr Naloxone HCl 2 mg/ Sodium (Chloride) 250 mls @ 187.5 mls/hr IV Q1H CESAR Exam - Exam Vital Signs: Vital Signs (72 hours) 01/29/19 01/29/19 10:23 11:01 Temperature 98.9 F Pulse Rate 111 Respiratory 18 18 Rate Blood Pressure 101/74 (mmHg) O2 Sat by Pulse 98 Oximetry General: No acute distress HEENT: Atraumatic, EOMI, Mucous membr. moist/pink Lungs: Clear to auscultation Cardiovascular: Normal S1, Normal S2 Abdomen: Normal bowel sounds, Soft, No tenderness, No hepatospenomegaly Extremities: No clubbing, No cyanosis, No edema Skin: No rashes, No breakdown Neurological: Normal speech Psych/Mental Status: Other - hypervigilant Assessment/Plan - Assessment/Plan Assessment: 38 yo M with hx/o polysubstance abuse being evaluated for altered mental status Plan: # Acute encephalopathy Given previous hx/o of UTox + for multiple drugs- cocaine, opiates and response to narcan, I believe his symptoms are due to drug overdose, opiates being one of them. He likely has a gamut of other drugs in his system as well. - APAP, ETOH, ASA levels WNL/negative - start narcan gtt - haldol, BZD for prn agitation - consider precedex gtt - patient may need to be intubated and mechanically ventilated if he continues to become altered for airway protection # Hypoxemic respiratory failure likely due to depressed respiratory drive from drug OD - supplemental O2 to maintain SPO2 > 92% # NU likely due to myoglobinuria (CK 416) from being down - recommend IVF at high rates Patient meets criteria to be admitted and monitored in the ICU. Critical care issues: confusion/disorientation, tenuous respiratory status Critical care time: 75 minutes
[2019-01-29] MEDS ORDERED: NS 0.9% IVPB ONE (13:30)
[2019-01-29] MEDS ORDERED: DEXMEDETOMIDINE IVPB ONE (13:30)
[2019-01-29] MEDS: Naloxone* 2 MG in NS 0.9% 250 ML* 245 ML IV SCH ×3 (13:43→15:31)
[2019-01-29] MEDS ORDERED: Succinylcholine* 20 MG/ML 10 ML VIAL ONE (13:51)
[2019-01-29] MEDS ORDERED: Etomidate* 2 MG/ML 10 ML VIAL ONE (13:51)
[2019-01-29] MEDS ORDERED: Propofol* 100 ML ONE ×3 (14:07→22:16)
[2019-01-29] MEDS ORDERED: Midazolam* 1 MG/ML 2 ML VIAL (2 MG) IV ONE (14:08)
[2019-01-29] MEDS ORDERED: Etomidate* 2 MG/ML 10 ML VIAL IV ONE ×2 (14:09→14:22)
[2019-01-29] MEDS ORDERED: Succinylcholine* 20 MG/ML 10 ML VIAL IV ONE ×2 (14:09→14:22)
[2019-01-29] MEDS: Propofol* 500 MG/50 ML BTL IV ONE ×2 (14:12→16:58)
[2019-01-29] MEDS ORDERED: Midazolam* 1 MG/ML 10 ML VIAL (10 MG) ONE ×2 (14:13→14:31)
[2019-01-29] MEDS ORDERED: Midazolam* 1 MG/ML 10 ML VIAL (10 MG) IV ONE (14:29)
[2019-01-29] MEDS ORDERED: fentaNYL* 50 MCG/ML 2 ML VIAL (100 MCG VIAL) ONE (15:11)
[2019-01-29 15:30] LABS: Barbiturates Urine Screen None Detected (None Detect); Benzodiazepine Urine Screen None Detected (None Detect); Urine Appearance Cloudy; Urine Bilirubin Negative (Negative); Urine Blood Negative (Negative); Urine Cannabinoids Screen None Detected (None Detect); Urine Color Yellow; Urine Glucose Negative (Negative); Urine Ketones Negative (Negative); Urine Nitrite Negative (Negative); Urine Protein Negative (Negative); Urine Urobilinogen Negative (Negative)
[2019-01-29] MEDS ORDERED: fentaNYL INFUSION 50 MCG/ML* 2,500 MCG/50 ML BAG IV SCH (15:30)
[2019-01-29] MEDS: NS 0.9% 1000 ML** 1,000 ML IV SCH ×3 (15:49→23:36)
[2019-01-29] MEDS ORDERED: oxyCODONE ORAL.SOLN* 5 MG/5 ML UDC PO SCH (16:00)
[2019-01-29] MEDS: NS 0.9% 1000 ML** 1,000 ML IV ONE ×2 (16:45→17:23)
[2019-01-29] MEDS: oxyCODONE ORAL.SOLN* 5 MG/5 ML UDC PO SCH ×2 (16:52→22:21)
[2019-01-29] MEDS ORDERED: fentaNYL* 50 MCG/ML 2 ML VIAL (100 MCG VIAL) IV ONE (17:00)
[2019-01-29] MEDS: QUEtiapine TAB* 25 MG PO SCH (17:27)
[2019-01-29] MEDS ORDERED: NS 0.9% 1000 ML** 1,000 ML IV ONE (18:15)
[2019-01-29] MEDS: Propofol* 100 ML IV ONE (23:35)
[2019-01-30] MEDS: QUEtiapine TAB* 25 MG PO SCH ×3 (00:20→16:46)
[2019-01-30] MEDS: oxyCODONE ORAL.SOLN* 5 MG/5 ML UDC PO SCH ×4 (05:41→22:01)
[2019-01-30] MEDS: NS 0.9% 1000 ML** 1,000 ML IV SCH ×3 (05:42→22:58)
[2019-01-30] MEDS ORDERED: Propofol* 100 ML ONE ×2 (05:48→08:11)
[2019-01-30] MEDS: Propofol* 100 ML IV ONE ×2 (06:01→08:16)
[2019-01-30 06:19] LABS: ALT 14 U/L (7-52); Albumin 3.1 g/dL (3.2-5.2); Albumin/Globulin Ratio 1.2 (1-3); Alkaline Phosphatase 36 U/L (34-104); Blood Urea Nitrogen 9 mg/dL (6-24); CO2 Carbon Dioxide 24 mmol/L (22-32); Calcium 8.2 mg/dL (8.6-10.3); Chloride 110 mmol/L (101-111); EGFR African American 114.3 (>60); EGFR Non-African American 94.4 (>60); Globulin 2.6 g/dL (2-4); Glucose 75 mg/dL (70-100); Phosphorus 2.6 mg/dL (2.5-5.0); Sodium 138 mmol/L (135-145); Total Protein 5.7 g/dL (6.4-8.9)
[2019-01-30 06:31] LABS: Anion Gap 4 mmol/L (2-11)
[2019-01-30 06:52] LABS: ABS Basophils 0.1 10^3/ul (0-0.2); ABS Eosinophils 0.5 10^3/ul (0-0.6); ABS Lymphocytes 1.7 10^3/ul (1.0-4.8); ABS Monocytes 0.7 10^3/ul (0-0.8); ABS Neutrophils 3.8 10^3/ul (1.5-7.7); ABS Nucleated RBC 0 10^3/ul; Eosinophil % 6.8 %; Hematocrit 32 % (42-52); Hemoglobin 10.1 g/dl (14.0-18.0); Lymphocyte % 25.6 %; Mean Corpuscular HGB Conc 32 g/dl (31-36); Mean Corpuscular Hemoglobin 26 pg (27-31); Mean Corpuscular Volume 80 fL (80-94); Mean Platelet Volume 7.1 fL (7.4-10.4); Nucleated Red Blood Cells % 0.1; Platelet Count 274 10^3/ul (150-450); Red Blood Count 3.96 10^6/ul (4.00-5.40); Red Cell Distribution Width 15 % (10.5-15); White Blood Count 6.8 10^3/ul (3.5-10.8)
[2019-01-30 07:14] LABS: Potassium Redraw 3.6 mmol/L (3.5-5.0)
--- NOTE | 2019-01-30 09:48 | PN ---
Date of Service: 01/30/19 Critical Care Services: 38 YO M with previous admission for polysubstance overdose associated encephalopathy being managed in the ICU for acute encephalopathy with violent behavior requiring intubation and mechanical ventilation for airway protection 01/29- DOA, intubation/mechanical ventilation; High fentanyl (100mcg) and propofol requirements (40mcg) 01/30- all IV sedation turned off and patient extubated to nasal cannula. Patient has intermittent periods of diaphoresis and shivers No other overnight events Vital Signs: Temp Pulse Resp BP SpO2 FiO2 97.5 F 68 10 106/61 100 40 01/30/19 09:01 01/30/19 09:01 01/30/19 09:00 01/30/19 09:00 01/30/19 09:01 01/30 08:00 Physical Exam: General: No acute distress HEENT: Atraumatic, EOMI, Mucous membr. moist/pink Lungs: diminished breath sounds Cardiovascular: Normal S1, Normal S2 Abdomen: Normal bowel sounds, Soft, No tenderness, No hepatospenomegaly Extremities: No clubbing, No cyanosis, No edema Skin: No rashes, No breakdown Neurological: AAO x name and place; Non focal Fluid Balance (Past 24 Hours): I= O= Net Intake & Output 01/28/19 01/29/19 01/30/19 01/31/19 06:59 06:59 06:59 06:59 Intake Total 6602.0 0 Output Total 1115 185 Balance 5487.0 -185 Weight 246 lb 11.156 oz Intake: IV Fluids 6159.1 NS (0.9%) 3958 NS to Maintain IV Patency 151.1 Medicated IV 251.9 CC - Propofol/Diprivan 227 Fentanyl 24.9 IV Narcotic Infusion 31 Fentanyl 31 Oral 160 0 Output: Urine 195 [place] 920 185 ADLs: Meal Record Start: 01/29/19 15: 18 Freq: 09,13,18 Status: Active Protocol: Created 01/29/19 15:18 System (Rec: 01/29/19 15:18 System ICU-C14) Document 01/29/19 17:26 [id number] (Rec: 01/29/19 17:26 [id number] ICU-M33) Document 01/30/19 09:00 [id number] (Rec: 01/30/19 09:15 [id number] ICU-C12) Intake and Output Start: 01/29/19 10: 27 Freq: Status: Active Protocol: Created 01/29/19 10:27 System (Rec: 01/29/19 10:27 System ED-C24) Intake and Output Start: 01/29/19 15: 18 Freq: Q1HR Status: Active Protocol: Created 01/29/19 15:18 System (Rec: 01/29/19 15:18 System ICU-C14) Document 01/29/19 16:03 [id number] (Rec: 01/29/19 16:04 [id number] ICU-M33) Document 01/29/19 17:26 [id number] (Rec: 01/29/19 17:26 [id number] ICU-M33) Document 01/29/19 17:55 [id number] (Rec: 01/29/19 17:55 [id number] ICU-M33) Document 01/29/19 19:00 [id number] (Rec: 01/29/19 20:10 [id number] ICU-L03) Document 01/29/19 20:00 [id number] (Rec: 01/29/19 20:10 [id number] ICU-L03) Document 01/29/19 21:00 [id number] (Rec: 01/29/19 22:34 [id number] ICU-L03) Document 01/29/19 22:00 [id number] (Rec: 01/29/19 23:17 [id number] ICU-M33) Document 01/29/19 23:00 [id number] (Rec: 01/29/19 23:17 [id number] ICU-M33) Document 01/30/19 00:00 [id number] (Rec: 01/30/19 00:25 [id number] ICU-M33) Document 01/30/19 01:00 [id number] (Rec: 01/30/19 03:09 [id number] ICU-L03) Document 01/30/19 02:00 [id number] (Rec: 01/30/19 03:09 [id number] ICU-L03) Document 01/30/19 03:00 [id number] (Rec: 01/30/19 03:09 [id number] ICU-L03) Document 01/30/19 04:00 [id number] (Rec: 01/30/19 06:18 [id number] ICU-L03) Document 01/30/19 05:00 [id number] (Rec: 01/30/19 06:32 [id number] ICU-L03) Document 01/30/19 06:00 [id number] (Rec: 01/30/19 06:35 [id number] ICU-L03) Document 01/30/19 07:00 [id number] (Rec: 01/30/19 07:26 [id number] ICU-C12) Document 01/30/19 08:00 [id number] (Rec: 01/30/19 08:28 [id number] ICU-C12) Document 01/30/19 09:00 [id number] (Rec: 01/30/19 09:33 [id number] ICU-C12) Labs: Laboratory Results - last 24 hr 01/29/19 01/29/19 01/29/19 11:10 11:10 12:14 WBC 7.9 RBC 4.54 Hgb 11.6 L Hct 36 L MCV 79 L MCH 26 L MCHC 32 RDW 15 Plt Count 361 MPV 6.8 L Neut % (Auto) 57.3 Lymph % (Auto) 24.2 Todd % (Auto) 11.6 Eos % (Auto) 6.0 Baso % (Auto) 0.9 Absolute Neuts (auto) 4.5 Absolute Lymphs (auto) 1.9 Absolute Monos (auto) 0.9 H Absolute Eos (auto) 0.5 Absolute Basos (auto) 0.1 Absolute Nucleated RBC 0 Nucleated RBC % 0.1 Patient Temperature ABG pH 7.35 ABG pH (Temp Correct) ABG pCO2 50 H ABG pCO2 (Temp Corrct ABG pO2 54 L* ABG pO2 (Temp Correct ABG HCO3 25.6 ABG O2 Saturation 89.1 L ABG Base Excess 1.2 Respiration Rate O2 Delivery Device Ventilator Type Vent Mode FiO2 Inspiratory Time PEEP Pressure Support Pressure Control EPAP IPAP BiPAP Sodium 140 Potassium 4.0 Chloride 107 Carbon Dioxide 26 Anion Gap 7 BUN 14 Creatinine 1.44 H Est GFR ( Amer) 66.4 Est GFR (Non-Af Amer) 54.9 BUN/Creatinine Ratio 9.7 Glucose 105 H Calcium 9.5 Phosphorus Magnesium 2.0 Total Bilirubin 0.50 AST 26 ALT 18 Alkaline Phosphatase 44 Total Creatine Kinase 416 H Total Protein 7.4 Albumin 4.0 Globulin 3.4 Albumin/Globulin Ratio 1.2 TSH 0.94 Urine Color Urine Appearance Urine pH Ur Specific Semmes Urine Protein Urine Ketones Urine Blood Urine Nitrate Urine Bilirubin Urine Urobilinogen Ur Leukocyte Esterase Urine Glucose Salicylates < 2.50 Urine Opiates Screen Acetaminophen < 15 Ur Barbiturates Screen Ur Phencyclidine Scrn Ur Amphetamines Screen U Benzodiazepines Scrn Urine Cocaine Screen U Cannabinoids Screen Serum Alcohol < 10 01/29/19 01/29/19 01/29/19 14:40 14:40 14:50 WBC RBC Hgb Hct MCV MCH MCHC RDW Plt Count MPV Neut % (Auto) Lymph % (Auto) Todd % (Auto) Eos % (Auto) Baso % (Auto) Absolute Neuts (auto) Absolute Lymphs (auto) Absolute Monos (auto) Absolute Eos (auto) Absolute Basos (auto) Absolute Nucleated RBC Nucleated RBC % Patient Temperature ABG pH ABG pH (Temp Correct) ABG pCO2 ABG pCO2 (Temp Corrct ABG pO2 ABG pO2 (Temp Correct ABG HCO3 ABG O2 Saturation ABG Base Excess Respiration Rate O2 Delivery Device Ventilator Type Vent Mode FiO2 Inspiratory Time PEEP Pressure Support Pressure Control EPAP IPAP BiPAP Sodium Potassium Chloride Carbon Dioxide Anion Gap BUN Creatinine Est GFR ( Amer) Est GFR (Non-Af Amer) BUN/Creatinine Ratio Glucose Calcium Phosphorus Magnesium 1.9 Total Bilirubin AST ALT Alkaline Phosphatase Total Creatine Kinase Total Protein Albumin Globulin Albumin/Globulin Ratio TSH Urine Color Yellow Urine Appearance Cloudy Urine pH 5.0 Ur Specific Semmes 1.020 Urine Protein Negative Urine Ketones Negative Urine Blood Negative Urine Nitrate Negative Urine Bilirubin Negative Urine Urobilinogen Negative Ur Leukocyte Esterase Negative Urine Glucose Negative Salicylates Urine Opiates Screen Presumptive positive A Acetaminophen Ur Barbiturates Screen None detected Ur Phencyclidine Scrn None detected Ur Amphetamines Screen None detected U Benzodiazepines Scrn None detected Urine Cocaine Screen Presumptive positive A U Cannabinoids Screen None detected Serum Alcohol 01/29/19 01/30/19 01/30/19 16:50 05:52 05:52 WBC 6.8 RBC 3.96 L Hgb 10.1 L Hct 32 L MCV 80 MCH 26 L MCHC 32 RDW 15 Plt Count 274 MPV 7.1 L Neut % (Auto) 55.8 Lymph % (Auto) 25.6 Todd % (Auto) 11.0 Eos % (Auto) 6.8 Baso % (Auto) 0.8 Absolute Neuts (auto) 3.8 Absolute Lymphs (auto) 1.7 Absolute Monos (auto) 0.7 Absolute Eos (auto) 0.5 Absolute Basos (auto) 0.1 Absolute Nucleated RBC 0 Nucleated RBC % 0.1 Patient Temperature Not Reportable ABG pH 7.35 ABG pH (Temp Correct) Not Reportable ABG pCO2 45 ABG pCO2 (Temp Corrct Not Reportable ABG pO2 147 H ABG pO2 (Temp Correct Not Reportable ABG HCO3 24.1 ABG O2 Saturation 100.0 H ABG Base Excess -1.1 Respiration Rate 14 O2 Delivery Device vent Ventilator Type 500 Vent Mode cmv FiO2 40 Inspiratory Time Not Reportable PEEP 5 Pressure Support Not Reportable Pressure Control Not Reportable EPAP Not Reportable IPAP Not Reportable BiPAP Not Reportable Sodium 138 Potassium TNP Chloride 110 Carbon Dioxide 24 Anion Gap 4 BUN 9 Creatinine 0.90 Est GFR ( Amer) 114.3 Est GFR (Non-Af Amer) 94.4 BUN/Creatinine Ratio 10.0 Glucose 75 Calcium 8.2 L Phosphorus 2.6 Magnesium 2.0 Total Bilirubin 0.30 AST TNP ALT 14 Alkaline Phosphatase 36 Total Creatine Kinase Total Protein 5.7 L Albumin 3.1 L Globulin 2.6 Albumin/Globulin Ratio 1.2 TSH Urine Color Urine Appearance Urine pH Ur Specific Semmes Urine Protein Urine Ketones Urine Blood Urine Nitrate Urine Bilirubin Urine Urobilinogen Ur Leukocyte Esterase Urine Glucose Salicylates Urine Opiates Screen Acetaminophen Ur Barbiturates Screen Ur Phencyclidine Scrn Ur Amphetamines Screen U Benzodiazepines Scrn Urine Cocaine Screen U Cannabinoids Screen Serum Alcohol 01/30/19 06:45 WBC RBC Hgb Hct MCV MCH MCHC RDW Plt Count MPV Neut % (Auto) Lymph % (Auto) Todd % (Auto) Eos % (Auto) Baso % (Auto) Absolute Neuts (auto) Absolute Lymphs (auto) Absolute Monos (auto) Absolute Eos (auto) Absolute Basos (auto) Absolute Nucleated RBC Nucleated RBC % Patient Temperature ABG pH ABG pH (Temp Correct) ABG pCO2 ABG pCO2 (Temp Corrct ABG pO2 ABG pO2 (Temp Correct ABG HCO3 ABG O2 Saturation ABG Base Excess Respiration Rate O2 Delivery Device Ventilator Type Vent Mode FiO2 Inspiratory Time PEEP Pressure Support Pressure Control EPAP IPAP BiPAP Sodium Potassium 3.6 Chloride Carbon Dioxide Anion Gap BUN Creatinine Est GFR ( Amer) Est GFR (Non-Af Amer) BUN/Creatinine Ratio Glucose Calcium Phosphorus Magnesium Total Bilirubin AST 25 ALT Alkaline Phosphatase Total Creatine Kinase Total Protein Albumin Globulin Albumin/Globulin Ratio TSH Urine Color Urine Appearance Urine pH Ur Specific Semmes Urine Protein Urine Ketones Urine Blood Urine Nitrate Urine Bilirubin Urine Urobilinogen Ur Leukocyte Esterase Urine Glucose Salicylates Urine Opiates Screen Acetaminophen Ur Barbiturates Screen Ur Phencyclidine Scrn Ur Amphetamines Screen U Benzodiazepines Scrn Urine Cocaine Screen U Cannabinoids Screen Serum Alcohol Studies: CXR 01/30/19: hyperinflated lung gomes without evidence of acute consolidation. ETT 5.5 cm above heaven Nutrition: Bedside swallow evaluation pending. If passes bedside swallow eval, regular unrestricted diet Impression: 38 YO M with previous admission for polysubstance overdose associated encephalopathy being managed in the ICU for acute encephalopathy with violent behavior requiring intubation and mechanical ventilation for airway protection # Acute encephalopathy # Hypoxemic respiratory failure # NU with possible rhabdomyolysis # Hypokalemia # Polysubstance abuse Plan: # Acute encephalopathy Given previous hx/o of UTox + for multiple drugs- cocaine, opiates and response to narcan, I believe his symptoms are due to drug overdose, opiates being one of them. He likely has a gamut of other drugs in his system as well. UTox on this admission positive for opiates and cocaine APAP, ETOH, ASA levels WNL/negative -IV fentanyl and IV propofol stopped in preparation for extubation - haldol, BZD, benadryl for prn agitation - continue with prn oxycodone and scheduled seroquel for now # Hypoxemic respiratory failure likely due to depressed respiratory drive from drug OD - intubated 01/29 for airway protection - patient extubated to SD 01/30 # NU with possible rhabdo (CK 416-->436) from being down resolved 1.44-->0.90 - NS running at 150cc/h-->decrease rate to 100cc/h - check CPK in AM # Hypokalemia didn't tolerate IV KCL anticipate improvement with oral intake # Polysubstance abuse - SW and psych consult pending - Suspect chronic opiate dependence. Critical care issues: confusion/disorientation, acute ventilator dependance Critical care time: 45 minutes
[2019-01-30] MEDS ORDERED: Bisacodyl SUPP* 10 MG SUPP PR PRN (10:05)
[2019-01-30] MEDS ORDERED: Senna TAB PO PRN (10:05)
[2019-01-30 10:34] LABS: Creatine Kinase 436 U/L (10-223)
[2019-01-30] MEDS: KCL 10 MEQ/50 ML IVPREMIX* 10 MEQ/50 ML BAG IV SCH ×2 (10:48→12:10)
[2019-01-30] MEDS ORDERED: Chlorhexidine MOUTHWASH 0.12%* 15 ML UDC TOPICAL SCH (11:00)
[2019-01-30] MEDS ORDERED: LORazepam INJ* 2 MG/ML 1 ML VIAL IV PUSH PRN (12:03)
[2019-01-30] MEDS ORDERED: diPHENhydraMINE IV* 50 MG/ML 1 ml VIAL (BENADRYL) IV PRN (12:04)
[2019-01-30] MEDS: Heparin VIAL(*) 5000 UNITS/ML VIAL (FIVE THOUSAND) SUBCUT SCH ×2 (13:41→22:01)
[2019-01-30] MEDS: Pantoprazole IV* 40 MG IV SCH (13:41)
[2019-01-30] MEDS: Docusate LIQ* 100 MG/10 ML UDC PO SCH (22:01)
[2019-01-31] MEDS: QUEtiapine TAB* 25 MG PO SCH ×2 (00:57→07:46)
[2019-01-31] MEDS: oxyCODONE ORAL.SOLN* 5 MG/5 ML UDC PO SCH ×2 (04:47→08:07)
[2019-01-31] MEDS: Heparin VIAL(*) 5000 UNITS/ML VIAL (FIVE THOUSAND) SUBCUT SCH (05:25)
[2019-01-31 05:50] LABS: ABS Basophils 0.1 10^3/ul (0-0.2); ABS Eosinophils 0.3 10^3/ul (0-0.6); ABS Monocytes 0.7 10^3/ul (0-0.8); ABS Neutrophils 3.1 10^3/ul (1.5-7.7); ABS Nucleated RBC 0 10^3/ul; Eosinophil % 5.5 %; Hematocrit 35 % (42-52); Hemoglobin 11.4 g/dl (14.0-18.0); Lymphocyte % 32.4 %; Mean Corpuscular HGB Conc 33 g/dl (31-36); Mean Corpuscular Hemoglobin 26 pg (27-31); Mean Corpuscular Volume 78 fL (80-94); Mean Platelet Volume 6.8 fL (7.4-10.4); Nucleated Red Blood Cells % 0.1; Platelet Count 336 10^3/ul (150-450); Red Blood Count 4.48 10^6/ul (4.00-5.40); Red Cell Distribution Width 15 % (10.5-15); White Blood Count 6.1 10^3/ul (3.5-10.8)
[2019-01-31 06:09] LABS: Phosphorus 2.6 mg/dL (2.5-5.0)
[2019-01-31] MEDS: Pantoprazole IV* 40 MG IV SCH (07:47)
[2019-01-31] MEDS: Docusate LIQ* 100 MG/10 ML UDC PO SCH (07:49)
[2019-01-31] MEDS ORDERED: Polyethylene Glycol 3350* 17 GM PACKET PO SCH (09:00)
[2019-01-31 11:52] VITALS: BP 139/72
--- NOTE | 2019-01-31 15:21 | DS ---
CC: Dr. Jennifer Downey; Ermias Driscoll NP DISCHARGE SUMMARY: DATE OF ADMISSION: 01/29/19 DATE OF DISCHARGE: 01/31/19 PRIMARY CARE PROVIDERS: Dr. Jennifer Downey and Ermias Driscoll NP DISPOSITION: Home. CONDITION: Good. PRIMARY DIAGNOSIS: Opioid overdose, cocaine abuse. SECONDARY DIAGNOSIS: Acute kidney injury and rhabdomyolysis. PERTINENT PROCEDURE: Intubation, extubated 01/30/19. PERTINENT STUDIES AND LABS: Creatinine 1.44, decreased to 0.9; creatinine kinase 436, decreased to 280; and urine toxicology positive for opiates and cocaine. DISCHARGE MEDICATIONS - pt reports he has scripts, not prescribed - atomoxetine 50mg daily - zolpidem 10mg nightly - lorazepam 1mg prn anxiety - gabapentin 800mg bid - Suboxone 12mg bid HISTORY OF PRESENT ILLNESS: This is a 38-year-old male with previous admission for polysubstance overdose associated with encephalopathy, brought in to the ED by police after finding him screaming and and exhibiting symptoms of demario. In ER, the patient did admit to alcohol use with friends, but in ICU the patient was incoherent and having behavioral disturbance. He would intermittently shout and then be found somnolent and with snoring. He was eventually admitted to the ICU for desaturation to 80% on room air. HOSPITAL COURSE: The patient was administered 2 mg of Narcan resulting in instant alertness. The patient then became violent again while alert and required Ativan and Benadryl for behavioral control. He was started on a Narcan drip for likely opioid overdose as well as IV fluids for an elevated CK and resultant NU. He eventually required intubation for airway protection, although he was able to be extubated by the next day. He was then transferred to the floor and discharged within 1 day with improved mental status and no longer with behavioral issues. The patient was evaluated by Psychiatry team and deemed to not exhibit self-injurious or violent behavior with recommendations to follow up with outpatient substance abuse treatment and handouts were given. REVIEW OF SYSTEMS: On day of discharge, a 10-point review of systems was negative. PHYSICAL EXAMINATION: Well-appearing, obese man, reclining in bed, talking with a friend at bedside. Neck: Supple. No LAD. Lungs: Clear to auscultation bilaterally. Heart: Regular rate and rhythm. No murmurs, gallops or rubs. Abdomen: Protuberant, soft and nontender. Extremities: Warm , well perfused. No edema. Neuro: A and O x3. Gait normal. DISCHARGE INSTRUCTIONS: The patient is aware to follow up with [facility] providers for ongoing treatment of substance abuse disorder. He can resume his home medications without changes during this admission, although it is recommended to limit sedating medications and other substances of abuse in this patient. He can resume a healthy diet and activity as tolerated. TIME SPENT: Approximately 75 minutes was spent on this discharge, more than half of which was spent at the bedside for interview and exam. [id number]/CPS #: [id number] LEXI
--- NOTE | 2019-01-31 21:08 | CONS ---
CONSULTATION REPORT: DATE OF ADMISSION: 01/29/19 DATE OF CONSULT: 01/31/19 SUPERVISING PSYCHIATRIST: Dr. Juan Zhang. ATTENDING PROVIDER: Dr. Grant. CONSULTING PROVIDER: Lia Johnson NP REASON FOR CONSULTATION: To rule out lethality. HISTORY OF PRESENT ILLNESS/PSYCHIATRIC HISTORY: Yrn is a 38-year-old male, , with significant history of polysubstance use with multiple unintentional overdoses. The patient presented to ED via police due to disorganized behavior in the community. While in the ED, he was given Narcan and became violent, attempting to bite staff, and required chemical restraints. He was intubated in the ED and monitored on ICU until transferred to telemetry floor. Today, upon presentation, the patient is drowsy but arousable. He states "I just want to go home." He denies suicide attempt. He reports using too much heroin in order to be able to "feel it." The patient is a limited historian. He has a friend at bedside who assists in gaining history and he gives consent for this. According to the friend, the patient has been in [place] for the past 2 years and has family in the [employer] [facility]. He has a child here in [place] who lives with her mother and the patient does not have rights at this time due to history of violence while intoxicated with benzodiazepines. He has a history of being on probation and been in skilled nursing. He denies this as current. He denies involvement. He reports utilizing Suboxone alternating with heroin. I checked his I-[facility] and he is prescribed Suboxone through [facility] by Dr. Jennifer Downey. The patient reports his contact at [facility] is Mica and has an appointment with her on Sunday. He denies a history of suicide attempts. He denies depression. He denies anxiety. He denies a history of psychiatric illness other than substance use. He denies desire for assistance in obtaining substance use treatment. Social Work has given him and his friend information about substance use treatment facilities. MENTAL STATUS EXAM: Yrn is a 38-year-old male who is sitting in hospital bed wearing hospital gown. He is poorly groomed which is understandable due to being in the hospital for 2 days. He is alert and oriented x3. Eye contact is fair. Speech is soft and mumbled. Thought content is negative for SI, HI, or . He denies auditory or visual hallucinations. There are no perceptual disturbances noted. Insight and judgment are poor as exhibited by his frequent substance use. Fund of knowledge is adequate. DIAGNOSES: 1. Opioid use disorder. 2. Cocaine use disorder. ASSESSMENT AND PLAN: Yrn is a 38-year-old male who presented to ED via police. He was given Narcan in the ED and responded to this with violent behavior. Acute encephalopathy related to drug overdose. He declines offer of treatment on mental health unit. He reports having outpatient care and this is verified through [facility]- [facility]. He is at chronic risk for overdose. He and his significant other were given information about the dangers of using heroin while intermittently using Suboxone. The patient is cleared by Psych and can be discharged via medical provider. LIA JOHNSON, KALLI [id number]/CPS #: [id number] LEXI
== END 2019-01-31 15:19 | disposition home or self-care (01) | DRG 812 ==
LOC: ED 10:20 → ICU 14:22 → MEDTELE 01-31 00:19
PROVIDERS: ADMIT Internal Medicine Pulmonary Disease; ATTEND Internal Medicine
PROC: 0BH17EZ Insertion of Endotracheal Airway into Trachea, Via Natural or Artificial Opening (ICD-10-PCS; principal; 2019-01-29)
PROC: 5A1935Z Respiratory Ventilation, Less than 24 Consecutive Hours (ICD-10-PCS; 2019-01-29)
DX: T40.2X1A Poisoning by other opioids, accidental (unintentional), initial encounter (principal); G92 Toxic encephalopathy; J96.91 Respiratory failure, unspecified with hypoxia; N17.9 Acute kidney failure, unspecified; M62.82 Rhabdomyolysis; T40.5X1A Poisoning by cocaine, accidental (unintentional), initial encounter; F14.10 Cocaine abuse, uncomplicated; F17.210 Nicotine dependence, cigarettes, uncomplicated; D64.9 Anemia, unspecified; E66.9 Obesity, unspecified; E87.6 Hypokalemia; F11.10 Opioid abuse, uncomplicated; Z82.49 Family history of ischemic heart disease and other diseases of the circulatory system; Z83.3 Family history of diabetes mellitus; Z56.0 Unemployment, unspecified; Y92.9 Unspecified place or not applicable; Z72.89 Other problems related to lifestyle; Z68.32 Body mass index [BMI] 32.0-32.9, adult
CPT/HCPCS: 36415; 36600; 71045; 80053; 80307; 80320; 80329; 81003; 82550; 82803; 83735; 84100; 84443; 85025; 87641; 93005; 94003; 99285; 99406; A9270-GY; G0480; J0330; J1630; J1644; J2060; J2250; J2310; J2405; J2704; J3010; J3480

== ENCOUNTER 2019-06-15 12:51 | Emergency (ER) | payer OTHER ==
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
[2019-06-15 13:32] LABS: ABS Eosinophils 0.3 10^3/ul (0-0.6); ABS Lymphocytes 1.4 10^3/ul (1.0-4.8); ABS Monocytes 0.6 10^3/ul (0-0.8); ABS Neutrophils 3.9 10^3/ul (1.5-7.7); Eosinophil % 4.9 %; Hematocrit 36 % (42-52); Hemoglobin 11.7 g/dL (14.0-18.0); Lymphocyte % 22.8 %; Mean Corpuscular HGB Conc 32 g/dL (31-36); Mean Corpuscular Hemoglobin 25 pg (27-31); Mean Corpuscular Volume 76 fL (80-94); Mean Platelet Volume 6.8 fL (7.4-10.4); Platelet Count 243 10^3/uL (150-450); Red Blood Count 4.74 10^6 /uL (4.18-5.48); Red Cell Distribution Width 17 % (10-15); White Blood Count 6.3 10^3/uL (3.5-10.8)
[2019-06-15] MEDS ORDERED: Lorazepam PYXIS KEY PRN (13:32)
[2019-06-15] MEDS ORDERED: LORazepam INJ* 2 MG/ML 1 ML VIAL IV PUSH ONE (13:32)
[2019-06-15] MEDS: NS 0.9% 1000 ML** 2,000 ML IV ONE (13:33)
[2019-06-15] MEDS ORDERED: Lorazepam PYXIS KEY ONE (13:36)
[2019-06-15 13:39] LABS: INR 1.04 (0.82-1.09)
[2019-06-15 13:43] LABS: Albumin/Globulin Ratio 1.2 (1-3); BUN/Creatinine Ratio 7.1 (8-20); C Reactive Protein 16.4 mg/L (<8.01); Calcium 9.5 mg/dL (8.6-10.3); EGFR African American 87.4 (>60); EGFR Non-African American 72.2 (>60); Globulin 3.4 g/dL (2-4); Potassium 3.7 mmol/L (3.5-5.0); Total Bilirubin 0.4 mg/dL (0.2-1.0); Total Protein 7.4 g/dL (6.4-8.9)
[2019-06-15] MEDS ORDERED: Lidocaine 2% MPF* 2 ML VIAL ONE (14:19)
[2019-06-15] MEDS ORDERED: cefTRIAXone(*) 1 GM in NS 0.9% 50 ML* 50 ML IVPB ONE (14:52)
[2019-06-15] MEDS ORDERED: NS 0.9% 1000 ML** 1,000 ML IV ONE (15:08)
[2019-06-15] MEDS ORDERED: Lidocaine 2% MPF* 2 ML VIAL INJ ONE (16:00)
[2019-06-15 16:28] LABS: Urine Appearance Clear; Urine Bilirubin Negative (Negative); Urine Blood Negative (Negative); Urine Color Yellow; Urine Glucose Negative (Negative); Urine Ketones Negative (Negative); Urine Nitrite Negative (Negative); Urine Protein Negative (Negative); Urine Specific Gravity 1.011 (1.010-1.030); Urine Urobilinogen Negative (Negative)
[2019-06-15 17:17] LABS: Urine Benzodiazepine Screen Presumptive Positive (None Detect); Urine Opiates Screen Presumptive Positive (None Detect)
[2019-06-15 18:24] VITALS: BP 149/113
== END 2019-06-15 18:20 | disposition home or self-care (01) ==
LOC: ED 12:51
DX: S01.91XA Laceration without foreign body of unspecified part of head, initial encounter (principal); F19.10 Other psychoactive substance abuse, uncomplicated; X99.8XXA Assault by other sharp object, initial encounter; Y92.9 Unspecified place or not applicable; F17.210 Nicotine dependence, cigarettes, uncomplicated; Z79.899 Other long term (current) drug therapy
CPT/HCPCS: 12054; 36415; 70450; 80053; 80307; 81003; 85025; 85610; 86140; 96361; 96365; 96375; 99285; J0696; J2060

== ENCOUNTER 2019-08-22 14:37 | Emergency (ER) | payer OTHER ==
[2019-08-22 14:46] VITALS: BP 125/76
[2019-08-22] MEDS ORDERED: Tetan/Diph/Pertus SYR(Tdap)* 0.5 ML SYR(BOOSTRIX) use SYR IM ONE (15:08)
--- NOTE | 2019-08-22 15:36 | UC ---
General HPI - HPI Summary HPI Summary: 39 yo gentleman c/o R dorsal wrist pain, progressive x approx 10 days. Was injecting meth and missed vein. Pain started right away, but swelling progressed over a longer time. Took a few keflex tablets (not sure how many), but then pills went missing. Today approx 3-4 hours ago, took an "amoxicillin" (from a friend). Has been using epsom salt, hot water, and topical apothecary treatments but hasn't helped. Tried to karen the area but to no avail. Distal fingers a little numb, but universally (not focal). had and wrist are swollen. Hurts to move hand and bend wrist. Elbow ok. No recent fever / chills. No GI issues / sob / cp / palpitations. Last [place], thinks > 10 yrs. Pt is mostly L handed but uses R hand a lot (limited now). - History of Current Complaint Chief Complaint: Tylor Stated Complaint: SKIN COMPLAINT Time Seen by Provider: 08/22/19 15:01 Hx Obtained From: Patient Pain Intensity: 4 - Allergy/Home Medications Allergies/Adverse Reactions: Allergies Allergy/AdvReac Type Severity Reaction Status Date / Time No Known Allergies Allergy Verified 01/29/19 10:28 PMH/Surg Hx/FS Hx/Imm Hx Previously Healthy: No - see RN notes. Other History Of: Negative For: HIV, Hepatitis B, Hepatitis C, Anticoagulant Therapy - Surgical History Surgical History: Yes Surgery Procedure, Year, and Place: APPENDECTOMY - Family History Known Family History: Positive: Hypertension, Diabetes - Social History Alcohol Use: Weekly Substance Use Type: Cocaine, Heroin, Prescribed, Sedatives Substance Use Comment - Amount & Last Used: per RN report Smoking Status (MU): Light Every Day Tobacco Smoker Type: Cigarettes - Immunization History Most Recent Influenza Vaccination: unknown Most Recent Pneumonia Vaccination: never Review of Systems All Other Systems Reviewed And Are Negative: Yes Constitutional: Positive: Other - see hpi Skin: Positive: Other - see hpi Eyes: Positive: Negative ENT: Positive: Negative Respiratory: Positive: Other - see hpi Cardiovascular: Positive: Other - see hpi Gastrointestinal: Positive: Other - see hpi Genitourinary: Positive: Negative Motor: Positive: Other - see hpi Neurovascular: Positive: Other - see hpi Musculoskeletal: Positive: Other: - see hpi Neurological: Positive: Other - see hpi Psychological: Positive: Negative Is Patient Immunocompromised?: No Physical Exam Triage Information Reviewed: Yes Appearance: Well-Appearing, Well-Nourished Vital Signs: Initial Vital Signs Temp 98.4 F 08/22/19 14:41 Pulse 80 08/22/19 14:41 Resp 16 08/22/19 14:41 BP 125/76 08/22/19 14:41 Pulse Ox 100 08/22/19 14:41 Vital Signs Reviewed: Yes Eye Exam: Normal - grossly normal ENT Exam: Normal - grossly normal Neck exam: Normal Neck: Positive: Supple Respiratory Exam: Normal Respiratory: Positive: Chest non-tender Cardiovascular Exam: Normal Abdominal Exam: Normal Abdomen Description: Positive: Nontender Musculoskeletal Exam: Other - R wrist and hand very swollen. R dorsal wrist with firm swelling and skin disruption (full and partial thickness) approx 5cm x 3.5cm. Redness approx 10cm x 5.5cm. Distal sens present but subj decreased x 5 digits. CR is good x 5 dig. ROM limited d/t pain and swelling. Neurological Exam: Normal - see [facility] [place] [facility] Psychological Exam: Normal - conversing easily and appropriately Skin Exam: Other - See [facility] [place] [facility] re R hand / wrist Several track deluca BLE Course/Dx - Course Course Of Treatment: Boostrix today. Dressing placed by myself D/w pt coa / tx plan. Has taken several doses abx (cephalexin and today amoxicillin (?)) but to no avail. Highly recommend go to the ED for further evaluation and management. Mr. Ellis will go, but declines EMS, citing his parents in the waiting room will drive him. Advised not to go home but to go straight to the ED. Aware that untreated, or even partially treated, this could lead to permanent disability, sepsis, . Questions as posed answered to the best of my ability. - Diagnoses Provider Diagnosis: Abscess, Cellulitis Discharge ED - Sign-Out/Discharge Documenting (check all that apply): Patient Departure All imaging exams completed and their final reports reviewed: No Studies - Discharge Plan Condition: Stable Disposition: HOME Patient Education Materials: Diphtheria/Acellular Pertussis/Tetanus Booster Vaccine (By injection), Cellulitis (ED), Abscess (ED) Referrals: No Primary Care Phys,NOPCP [Primary Care Provider] - Additional Instructions: Please go directly to the Emergency Department. Stop and call 911 if problems en route. - Billing Disposition and Condition Condition: STABLE Disposition: Home
== END 2019-08-22 15:37 | disposition home or self-care (01) ==
LOC: UCEAST 14:37
DX: L02.413 Cutaneous abscess of right upper limb (principal); L03.113 Cellulitis of right upper limb; Z23 Encounter for immunization; F17.210 Nicotine dependence, cigarettes, uncomplicated
CPT/HCPCS: 90471; 90715; 99211; G0463

== ENCOUNTER 2019-08-22 16:24 | Emergency (ER) | payer OTHER ==
[2019-08-22] MEDS ORDERED: Piperacillin/Tazobac ADVAN(*) 3.375 GM in NS 0.9% 100 ML* 100 ML IVPB ONE (17:25)
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
[2019-08-22 18:02] LABS: ABS Basophils 0.1 10^3/ul (0-0.2); ABS Eosinophils 0.1 10^3/ul (0-0.6); ABS Lymphocytes 1.8 10^3/ul (1.0-4.8); ABS Monocytes 0.5 10^3/ul (0-0.8); ABS Neutrophils 2.2 10^3/ul (1.5-7.7); Eosinophil % 2.8 %; Hematocrit 32 % (42-52); Hemoglobin 10.6 g/dL (14.0-18.0); Lymphocyte % 38.3 %; Mean Corpuscular HGB Conc 33 g/dL (31-36); Mean Corpuscular Hemoglobin 25 pg (27-31); Mean Corpuscular Volume 76 fL (80-94); Mean Platelet Volume 6.2 fL (7.4-10.4); Platelet Count 524 10^3/uL (150-450); Red Cell Distribution Width 16 % (10-15); White Blood Count 4.7 10^3/uL (3.5-10.8)
[2019-08-22 18:19] LABS: Albumin 3.3 g/dL (3.2-5.2); Albumin/Globulin Ratio 0.8 (1-3); BUN/Creatinine Ratio 17.3 (8-20); Calcium 8.7 mg/dL (8.6-10.3); EGFR African American 128.4 (>60); EGFR Non-African American 106.1 (>60); Total Bilirubin 0.1 mg/dL (0.2-1.0); Total Protein 7.3 g/dL (6.4-8.9)
[2019-08-22 18:38] LABS: Urine Appearance Clear; Urine Bilirubin Negative (Negative); Urine Blood Negative (Negative); Urine Color Straw; Urine Glucose Negative (Negative); Urine Ketones Negative (Negative); Urine Nitrite Negative (Negative); Urine Protein Negative (Negative); Urine Specific Gravity 1.008 (1.010-1.030); Urine Urobilinogen Negative (Negative)
[2019-08-22 18:47] LABS: C Reactive Protein 5.99 mg/L (<8.01)
[2019-08-22 19:11] VITALS: BP 116/71
[2019-08-22 19:49] LABS: Erythrocyte Sed Rate 95 mm/Hr (0-14)
== END 2019-08-22 19:10 | disposition home or self-care (01) ==
LOC: ED 16:24
DX: L03.113 Cellulitis of right upper limb (principal); F17.210 Nicotine dependence, cigarettes, uncomplicated; Z90.89 Acquired absence of other organs; Z79.899 Other long term (current) drug therapy
CPT/HCPCS: 36415; 80053; 81003; 83605; 85025; 85652; 86140; 87040; 96365; 99283; J2543

== ENCOUNTER 2020-01-26 19:17 | Emergency (ER) | payer OTHER ==
[2020-01-26 19:41] VITALS: BP 145/82
[2020-01-26] MEDS ORDERED: diPHENhydraMINE PO* 50 MG PO ONE (19:48)
--- NOTE | 2020-01-26 19:52 | UC ---
UC General HPI - HPI Summary HPI Summary: 39-year-old male comes in with a chief complaint of withdrawal from Ativan. Patient has a prescription for Ativan and he has run out in his next prescription is due to be filled on January 30, 2020. He is feeling anxious has insomnia. He denies any plans to hurt others or himself. Reports in the past she's tried hydroxyzine and clonidine without any help. - History of Current Complaint Chief Complaint: UCPsych Stated Complaint: MH RELATED Time Seen by Provider: 01/26/20 19:39 Pain Intensity: 0 - Allergy/Home Medications Allergies/Adverse Reactions: Allergies Allergy/AdvReac Type Severity Reaction Status Date / Time No Known Allergies Allergy Verified 08/22/19 16:30 Home Medications: Home Medications Buprenorphine HCl/Naloxone HCl [Suboxone 12 mg-3 mg Sl Film] 1 film SL BID 01/29 [History Confirmed 08/22/19] Gabapentin CAP(*) [Neurontin 400 mg CAP(*)] 800 mg PO TID 01/29/19 [History Confirmed 08/22/19] Ibuprofen TAB* [Motrin TAB* 600 MG] 600 mg PO Q8H PRN 08/22/19 [History Confirmed 08/22/19] Sulfamethox/Trimethoprim DS* [Bactrim DS 800/160 TAB*] 1 tab PO BID #20 tab [Rx] PMH/Surg Hx/FS Hx/Imm Hx Previously Healthy: Yes Psychological History: Anxiety Other History Of: Negative For: HIV, Hepatitis B, Hepatitis C, Anticoagulant Therapy - Surgical History Surgical History: Yes Surgery Procedure, Year, and Place: APPENDECTOMY - Family History Known Family History: Positive: Hypertension, Diabetes - Social History Alcohol Use: Weekly Alcohol Amount: couple drinks Substance Use Type: Cocaine, Heroin, Marijuana, Prescribed, Sedatives, Other Substance Use Comment - Amount & Last Used: meth Smoking Status (MU): Light Every Day Tobacco Smoker Type: Cigarettes - Immunization History Most Recent Influenza Vaccination: unknown Most Recent Pneumonia Vaccination: never Review of Systems All Other Systems Reviewed And Are Negative: Yes Constitutional: Positive: Other - SEE HPI Skin: Positive: Negative Eyes: Positive: Negative ENT: Positive: Negative Respiratory: Positive: Negative Cardiovascular: Positive: Negative Gastrointestinal: Positive: Negative Motor: Positive: Negative Neurovascular: Positive: Negative Musculoskeletal: Positive: Negative Neurological/Mental Status: Positive: Negative Psychological: Positive: Anxious Is Patient Immunocompromised?: No Physical Exam Triage Information Reviewed: Yes Appearance: No Pain Distress, Well-Nourished Vital Signs: Initial Vital Signs Temp 97.9 F 01/26/20 19:28 Pulse 92 01/26/20 19:28 Resp 22 01/26/20 19:28 BP 145/82 01/26/20 19:28 Pulse Ox 98 01/26/20 19:28 Vital Signs Reviewed: Yes Eye Exam: Normal Eyes: Positive: Conjunctiva Clear, Other: - PERRLA EOMI ENT: Positive: Pharynx normal Neck: Positive: Supple Respiratory: Positive: Lungs clear, Normal breath sounds, No respiratory distress Cardiovascular: Positive: RRR Musculoskeletal: Positive: Strength Intact, ROM Intact Neurological: Positive: Alert, Other: - Anxious Psychological: Positive: Other: - Anxious Skin Exam: Normal Course/Dx - Course Course Of Treatment: I recommended further evaluation in the emergency department. Patient denies any plans to hurt himself or others. He reports that he can get a ride from his girlfriend emergency department. - Diagnoses Provider Diagnosis: Anxiety, Insomnia, Benzodiazepine withdrawal Discharge ED - Sign-Out/Discharge Documenting (check all that apply): Patient Departure All imaging exams completed and their final reports reviewed: No Studies - Discharge Plan Condition: Stable Disposition: HOME-RECOMMEND TO ED Patient Education Materials: Insomnia (ED), Anxiety (ED) Referrals: [facility] [place] [facility]FERR[facility] [Outside] Care [facility] [Outside] Additional Instructions: GO DIRECTLY TO THE EMERGENCY DEPARTMENT FOR FURTHER EVALUATION. - Billing Disposition and Condition Condition: STABLE Disposition: Home-Recommend to ED
== END 2020-01-26 20:09 | disposition home health service (06) ==
LOC: UCEAST 19:17
DX: F41.9 Anxiety disorder, unspecified (principal); G47.00 Insomnia, unspecified; F13.239 Sedative, hypnotic or anxiolytic dependence with withdrawal, unspecified; F17.210 Nicotine dependence, cigarettes, uncomplicated; Z79.899 Other long term (current) drug therapy
CPT/HCPCS: 99212; A9270-GY; G0463

== ENCOUNTER 2020-02-02 04:10 | Emergency (ER) | payer OTHER ==
--- NOTE | 2020-02-02 04:24 | ED ---
Complex/Multi-Sys Presentation - HPI Summary HPI Summary: Patient is a 39 y/o M presenting to [facility] via EMS for chief complaint of allergic reaction with symptoms of lip swelling and rash. EMS report that the patient had claimed that this was his first allergic reaction and that he was unsure what could have caused it. EMS administered benadryl, decadron, breathing treatments, and epinephrine. In the room, patient is lethargic, unable to provide full history and is initially unable to state his name. EMS state that the patient was not acting in this manner during transport. Hx of substance abuse on medical records is noted. When asked if he used any substances this evening, he replies, "No I wish". Home medications and allergies are reviewed. Level 5 caveat secondary to AMS. - History Of Current Complaint Hx Obtained From: EMS, Medical Records Hx From Patient Unobtainable Due To: Altered Mental Status Onset/Duration: Still Present Timing: Constant Associated Signs And Symptoms: Positive: Other - positive - rash, lip swelling, AMS - Allergies/Home Medications Allergies/Adverse Reactions: Allergies Allergy/AdvReac Type Severity Reaction Status Date / Time No Known Allergies Allergy Verified 02/02/20 04:27 Home Medications: Home Medications NK [No Home Medications Reported] 02/02/20 [History Confirmed 02/02/20] PMH/Surg Hx/FS Hx/Imm Hx Endocrine/Hematology History: Denies: Hx Anticoagulant Therapy, Hx Diabetes, Hx Thyroid Disease Cardiovascular History: Denies: Hx Congestive Heart Failure, Hx Deep Vein Thrombosis, Hx Hypertension , Hx Myocardial Infarction, Hx Pacemaker/ICD Respiratory History: Reports: Hx Sleep Apnea Denies: Hx Asthma, Hx Chronic Obstructive Pulmonary Disease (COPD), Hx Lung Cancer, Hx Pneumonia, Hx Pulmonary Embolism GI History: Denies: Hx Gall Bladder Disease, Hx Gastrointestinal Bleed, Hx Ulcer, Hx Urosepsis History: Denies: Hx Kidney Stones, Hx Renal Disease Sensory History: Denies: Hx Contacts or Glasses, Hx Hearing Aid Opthamlomology History: Denies: Hx Contacts or Glasses Neurological History: Denies: Hx Dementia, Hx Migraine, Hx Seizures, Hx Transient Ischemic Attacks (TIA) Psychiatric History: Reports: Hx Substance Abuse Denies: Hx Anxiety, Hx Eating Disorder, Hx Depression, Hx Schizophrenia, Hx Bipolar Disorder, Hx of Violent Episodes Against Others - Surgical History Surgery Procedure, Year, and Place: APPENDECTOMY Infectious Disease History: No Infectious Disease History: Denies: Traveled Outside the [place] in Last 30 Days - Family History Known Family History: Positive: Hypertension, Diabetes - Social History Alcohol Use: Weekly Alcohol Amount: couple drinks Hx Substance Use: Yes Substance Use Type: Reports: Cocaine, Heroin, Marijuana, Prescribed, Sedatives, Other Substance Use Comment - Amount & Last Used: meth Hx Tobacco Use: Yes Smoking Status (MU): Light Every Day Tobacco Smoker Type: Cigarettes Review of Systems - ROS Summary Review of Systems Summary: Level 5 caveat secondary to AMS. Positive: Edema - lips Positive: Rash Neurological/Mental Status: Other - positive - AMS All Other Systems Reviewed And Are Negative: No - Comments Additional Review of Systems Comments: Level 5 caveat secondary to AMS. Physical Exam - Summary Physical Exam Summary: Appearance: Well-appearing, Well-nourished, lying in bed comfortably Skin: Warm, dry; diffuse, erythematous rash involving the neck and shoulder girdle, rash stops abruptly just before chest. Rash is not urticarical in nature. Patient has multiple track deluca and healed areas of skin popping consistent with substance abuse Hx. Eyes: sclera anicteric, no conjunctival pallor HENT: mucous membranes moist; lips are somewhat swollen, but there is no lingual edema, no obvious hoarse or muffled voice Neck: Supple, nontender Respiratory: Clear to auscultation, no signs of respiratory distress Cardiovascular: Normal S1, S2. No murmurs. Normal distal pulses in tibial and radial bilaterally. Abdomen: Soft, nontender, normal active bowel sounds present Musculoskeletal: Normal, Strength/ROM Intact Neurological: No acute focal neurological deficits, but complete neuro exam is limited due to AMS, level 5 caveat Psychiatric: He is somewhat lethargic, intermittently becomes somewhat agitated and then falls back to sleep, appears to be under influence of substances Triage Information Reviewed: Yes Vital Signs On Initial Exam: Initial Vitals Temp Pulse Resp BP Pulse Ox 99.1 F 87 19 127/80 98 02/02/20 04:13 02/02/20 04:13 02/02/20 04:13 02/02/20 04:13 02/02/20 04:13 Vital Signs Reviewed: Yes Procedures - Sedation Patient Received Moderate/Deep Sedation with Procedure: No Diagnostics - Vital Signs Vital Signs Temp Pulse Resp BP Pulse Ox 02/02/20 04:13 99.1 F 87 19 127/80 98 - Laboratory Result Diagrams: 02/02/20 04:42 02/02/20 04:42 Lab Statement: Any lab studies that have been ordered have been reviewed, and results considered in the medical decision making process. Complex Multi-Symp Course/Dx Course Of Treatment: This is a 39 y/o man with a h/o polysubstance abuse who apparently called EMS thinking he had an allergic reaction from some unknown substance, characterized by a rash. On arrival he has a labile LOC with somnolence alternating with agitation. He does not give appropriate answers to questions, and frequently cries out "Fuck". VS are unremarkable. He has a rash on his shoulders and neck and seems to have some swelling of the lips. This has been gradually improving since arrival and otherwise his exam is unremarkable. Screening lab work is similarly unrevealing. His presentation would suggest ingestion of a drug of abuse, though we will probably not find out what. At this point he will be observed and we will see if his sensorium clears. Patient is signed-out to Dr. Sung at 0700 02/02/20 shift change pending resolution of the patient's altered mentation. - Diagnoses Provider Diagnoses: AMS (altered mental status), Substance abuse Discharge ED - Sign-Out/Discharge Documenting (check all that apply): Sign-Out Patient Signing out patient TO: Justin Sung - Discharge Plan Condition: Guarded Disposition: HOME Patient Education Materials: Polysubstance Abuse (ED), Altered Mental Status ( ED) Referrals: [facility] [Outside] - 3 Days Additional Instructions: Follow up with your primary care provider within 3 days for altered mental status noted today. Return to the emergency department for any worsening or new symptoms. - Billing Disposition and Condition Condition: GUARDED Disposition: Home - Attestation Statements Document Initiated by Scribe: Yes Documenting Scribe: BERONICA RODRIGEZ Provider For Whom Mitch is Documenting (Include Credential): JAX BRADLEY MD Scribe Attestation: BERONICA [place], scribed for JAX BRADLEY MD on 02/06/20 at 0210. Scribe Documentation Reviewed: Yes Provider Attestation: The documentation as recorded by the BERONICA mcginnis accurately reflects the service I personally performed and the decisions made by meJAX MD Status of Scribe Document: Viewed
[2020-02-02 04:57] LABS: ABS Eosinophils 0.2 10^3/ul (0-0.6); ABS Lymphocytes 1.6 10^3/ul (1.0-4.8); ABS Monocytes 0.6 10^3/ul (0-0.8); ABS Neutrophils 8.6 10^3/ul (1.5-7.7); Eosinophil % 1.8 %; Hematocrit 37 % (42-52); Lymphocyte % 14.2 %; Mean Corpuscular HGB Conc 33 g/dL (31-36); Mean Corpuscular Hemoglobin 25 pg (27-31); Mean Corpuscular Volume 77 fL (80-94); Mean Platelet Volume 6.4 fL (7.4-10.4); Platelet Count 235 10^3/uL (150-450); Red Blood Count 4.77 10^6 /uL (4.18-5.48); Red Cell Distribution Width 17 % (10-15)
[2020-02-02 05:14] LABS: ALT 15 U/L (7-52); AST 35 U/L (13-39); Albumin 3.8 g/dL (3.2-5.2); Albumin/Globulin Ratio 1.2 (1-3); Alkaline Phosphatase 43 U/L (34-104); Anion Gap 6 mmol/L (2-11); BUN/Creatinine Ratio 14.5 (8-20); Blood Urea Nitrogen 20 mg/dL (6-24); CO2 Carbon Dioxide 27 mmol/L (22-32); Chloride 100 mmol/L (101-111); EGFR African American 69.4 (>60); EGFR Non-African American 57.4 (>60); Globulin 3.1 g/dL (2-4); Glucose 127 mg/dL (70-100); Potassium 3.3 mmol/L (3.5-5.0); Sodium 133 mmol/L (135-145); Total Protein 6.9 g/dL (6.4-8.9)
[2020-02-02 05:25] LABS: Alcohol < 10 mg/dL (<10)
[2020-02-02 05:40] LABS: TSH (Thyroid Stimulating Horm) 0.49 mcIU/mL (0.34-5.60)
--- NOTE | 2020-02-02 07:07 | ED ---
Progress - Progress Note Progress Note: Patient signed out by Dr. Angelo at 07:00 on 02/02/2020 pending resolution of AMS and disposition. [09:20] Alert and oriented x3; patient is eating and drinking; ambulating with a steady walk. Patient will be discharged with follow-up from his PCP. Re-Evaluation - Re-Evaluation First Eval Re-Evaluation Time: 07:55 Change: Improved Comment: Patient is sleeping comfortably with normal vital signs, hemodynamically stable. Second Eval Re-Evaluation Time: 09:20 Change: Improved Comment: Alert and oriented x3; patient is eating and drinking; ambulating with a steady walk. Course/Dx - Course Course Of Treatment: Patient signed out by Dr. Angelo at 07:00 on 02/02/2020 pending AMS resolution and disposition. [09:20] Alert and oriented x3; patient is eating and drinking; ambulating with a steady walk. Patient will be discharged with follow-up from his PCP. 9:30 AM: This patient was signed out to Dr. Restrepo at shift change. Dr. Restrepo reports that the patient is a 39- year-old male complaining of altered mental status secondary to polysubstance abuse. He recommends to observe the patient for a couple hours until he gets sober for reassessment of the patient. At 7 AM the patient is comfortable and with normal vital signs. At 8:30 AM the patient was also resting comfortably with normal sinus. At approximately 9:30 AM, the patient is alert and oriented 3, the patient requested to be discharged home. The patient is hungry and he ate a sandwich without any nausea or vomiting. The patient is ambulating well with a good steady walk. The patient is sober. Therefore, the patient will be discharged home with follow-up with PCP. He is hemodynamically stable and alert and oriented 3. Patient refused giving urine for testing. - Diagnoses Provider Diagnoses: AMS (altered mental status), Substance abuse Discharge ED - Sign-Out/Discharge Documenting (check all that apply): Patient Departure, Receiving Sign-Out Receiving patient FROM: Steven Angelo - Pending resolution of AMS and disposition. - Discharge Plan Condition: Stable Disposition: HOME Patient Education Materials: Polysubstance Abuse (ED), Altered Mental Status ( ED) Referrals: Care [facility] [Outside] - 3 Days Additional Instructions: Follow up with your primary care provider within 3 days for altered mental status noted today. Return to the emergency department for any worsening or new symptoms. - Billing Disposition and Condition Condition: STABLE Disposition: Home - Attestation Statements Document Initiated by Mitch: Yes Documenting Scribe: Liz Mcintosh Provider For Whom Ambaribe is Documenting (Include Credential): Justin Sung MD Scribe Attestation: Liz [place] scribed for Justin Sung MD on 02/03/20 at 1133. Scribe Documentation Reviewed: Yes Provider Attestation: The documentation as recorded by the Liz mcginnis accurately reflects the service I personally performed and the decisions made by , Justin Sung MD Status of Scribe Document: Viewed
[2020-02-02 09:12] VITALS: BP 118/59
== END 2020-02-02 11:31 | disposition home or self-care (01) ==
LOC: ED 04:10
DX: R41.82 Altered mental status, unspecified (principal); F19.10 Other psychoactive substance abuse, uncomplicated; F17.210 Nicotine dependence, cigarettes, uncomplicated; G47.33 Obstructive sleep apnea (adult) (pediatric)
CPT/HCPCS: 36415; 80053; 80320; 84443; 85025; 99283; G0480

== ENCOUNTER 2020-07-28 07:12 | Inpatient (IN) ==
[2020-07-28] MEDS ORDERED: Midazolam 2 mg/2 ml VIAL 1 mg/ml 2 ml VIAL (2 mg) IM ONE ×2 (07:13→07:37)
[2020-07-28] MEDS ORDERED: NS 0.9% 1000 ml BAG 1,000 ML IV ONE ×2 (07:36→09:06)
[2020-07-28] MEDS ORDERED: LORazepam 2 mg VIAL 1 ml IV PUSH ONE ×2 (08:07→08:32)
[2020-07-28] MEDS ORDERED: Lorazepam PYXIS KEY PRN ×2 (08:07→08:32)
[2020-07-28] MEDS ORDERED: Lorazepam PYXIS KEY ONE ×2 (08:24→08:36)
[2020-07-28 08:32] LABS: ABS Basophils 0.1 10^3/ul (0-0.2); ABS Eosinophils 0.1 10^3/ul (0-0.6); ABS Lymphocytes 2.2 10^3/ul (1.0-4.8); ABS Monocytes 1.1 10^3/ul (0-0.8); ABS Neutrophils 9.4 10^3/ul (1.5-7.7); Hematocrit 37 % (42-52); Hemoglobin 11.8 g/dL (14.0-18.0); Mean Corpuscular HGB Conc 32 g/dL (31-36); Mean Corpuscular Hemoglobin 24 pg (27-31); Mean Corpuscular Volume 75 fL (80-94); Mean Platelet Volume 6.9 fL (7.4-10.4); Platelet Count 415 10^3/uL (150-450); Red Blood Count 4.97 10^6 /uL (4.18-5.48); Red Cell Distribution Width 18 % (10-15); White Blood Count 12.9 10^3/uL (3.5-10.8)
[2020-07-28 08:43] LABS: ALT 18 U/L (7-52); Albumin 4.4 g/dL (3.2-5.2); Albumin/Globulin Ratio 1.1 (1-3); Alkaline Phosphatase 54 U/L (34-104); BUN/Creatinine Ratio 10.4 (8-20); Blood Urea Nitrogen 22 mg/dL (6-24); CO2 Carbon Dioxide 27 mmol/L (22-32); Chloride 101 mmol/L (101-111); Creatine Kinase 354 U/L (10-223); EGFR African American 42.1 (>60); EGFR Non-African American 34.8 (>60); Globulin 3.9 g/dL (2-4); Glucose 101 mg/dL (70-100); Sodium 136 mmol/L (135-145); Total Protein 8.3 g/dL (6.4-8.9)
[2020-07-28 08:44] LABS: Acetaminophen < 15 mcg/mL; Alcohol, S < 10 mg/dL (<10); Salicylate < 2.50 mg/dL (<30)
[2020-07-28 08:57] LABS: TSH Ultra Thyroid Stim Horm 5.89 mcIU/mL (0.34-5.60)
[2020-07-28] MEDS: Dexmedetomidine 1,000 MCG in NS 0.9% 250 ml 240 ML IV SCH ×2 (09:00→15:22)
[2020-07-28 09:05] LABS: AST 32 U/L (13-39); Anion Gap 8 mmol/L (2-11); Potassium 5.8 mmol/L (3.5-5.0)
[2020-07-28] MEDS ORDERED: Etomidate 20 mg/10 ml 2 MG/ML 10 ml VIAL IV ONE (09:09)
[2020-07-28] MEDS ORDERED: Rocuronium 50 mg VIAL 10 mg/ml 5 ml VIAL (50 mg) IV ONE (09:10)
[2020-07-28] MEDS ORDERED: Rocuronium 50 mg VIAL 10 mg/ml 5 ml VIAL (50 mg) ONE (09:11)
[2020-07-28] MEDS ORDERED: Etomidate 20 mg/10 ml 2 MG/ML 10 ml VIAL ONE (09:11)
[2020-07-28] MEDS ORDERED: Propofol 10 mg/ml 100 ML BTL 100 ML ONE (09:15)
[2020-07-28] MEDS ORDERED: Etomidate 40 mg/20 ml (2 MG/ML) 20 ml VIAL (40 mg) ONE (09:23)
[2020-07-28] MEDS: Propofol 10 mg/ml 100 ML BTL 100 ML IV ONE ×2 (09:35→13:29)
[2020-07-28 10:36] LABS: Urine Appearance Cloudy; Urine Bilirubin Negative (Negative); Urine Blood 2+ (Negative); Urine Color Yellow; Urine Glucose Negative (Negative); Urine Ketones Negative (Negative); Urine Nitrite Negative (Negative); Urine Protein 1+(30 mg/dL) (Negative); Urine Urobilinogen Negative (Negative)
[2020-07-28 10:43] LABS: Urine Bacteria Absent (Absent); Urine Red Blood Cell Trace(0-2/hpf) (Absent); Urine Squamous Epithelial Cell Present (Absent); Urine White Blood Cell Trace(0-5/hpf) (Absent)
[2020-07-28 10:51] LABS: Urine Benzodiazepine Screen Presumptive Positive (None Detect); Urine Cannabinoids Screen Presumptive Positive (None Detect); Urine Opiates Screen Presumptive Positive (None Detect)
[2020-07-28] MEDS: Chlorhexidine MOUTHWASH 0.12% 15 ML UDC SWISH SPIT SCH ×3 (14:32→23:04)
[2020-07-28] MEDS: Heparin 5000 UNITS/ML 1 mL VIAL SUBCUT SCH ×2 (14:32→21:32)
[2020-07-28] MEDS ORDERED: Piperacillin/Tazobac ADVAN 3.375 GM in NS 0.9% 100 ml BAG 100 ML IVPB ONE (15:55)
[2020-07-28] MEDS ORDERED: Zosyn per Pharmacy NOTE FOLLOW UP SCH (16:00)
[2020-07-28] MEDS: Propofol 10 mg/ml 100 ML BTL 100 ML IV SCH ×2 (16:52→20:52)
[2020-07-28] MEDS ORDERED: Sodium Bicarb 8.4% Vial 50 ML 150 MEQ in D5W 1000 ml BAG 850 ML IV SCH (18:00)
[2020-07-28] MEDS: Linezolid 600 MG IVPREMIX(*) 600 MG/300 ML BAG IVPB SCH (20:34)
[2020-07-28] MEDS: ZOSYN 3.375 GM Q8H per EXTENDED INFUSION IV SCH (20:48)
[2020-07-28 20:51] LABS: BUN/Creatinine Ratio 14.2 (8-20); Calcium 8.9 mg/dL (8.6-10.3); EGFR African American 63.7 (>60); EGFR Non-African American 52.6 (>60); Magnesium 2.3 mg/dL (1.9-2.7); Potassium 4.3 mmol/L (3.5-5.0)
[2020-07-28] MEDS: Lactated Ringers 1000 ml BAG 1,000 ML IV SCH (21:41)
[2020-07-28] MEDS: Azithromycin 500 mg/250 ml NS 500 MG/250 ML BAG IVPB SCH (22:07)
[2020-07-29] MEDS: Propofol 10 mg/ml 100 ML BTL 100 ML IV SCH ×4 (01:06→21:02)
[2020-07-29] MEDS: Chlorhexidine MOUTHWASH 0.12% 15 ML UDC SWISH SPIT SCH ×6 (02:46→22:10)
[2020-07-29] MEDS ORDERED: Lactated Ringers 1000 ml BAG 500 ML IV ONE (03:43)
[2020-07-29] MEDS: ZOSYN 3.375 GM Q8H per EXTENDED INFUSION IV SCH ×3 (03:57→19:56)
[2020-07-29] MEDS: Lactated Ringers 1000 ml BAG 1,000 ML IV SCH ×2 (04:12→18:09)
[2020-07-29] MEDS ORDERED: LORazepam 2 mg VIAL 1 ml ONE ×3 (05:13→17:04)
[2020-07-29] MEDS ORDERED: Lorazepam PYXIS KEY PRN ×2 (05:19→17:37)
[2020-07-29] MEDS ORDERED: LORazepam 2 mg VIAL 1 ml IV PUSH ONE ×2 (05:20→17:37)
[2020-07-29] MEDS: Heparin 5000 UNITS/ML 1 mL VIAL SUBCUT SCH ×3 (05:47→22:10)
[2020-07-29 06:10] LABS: Albumin 3.3 g/dL (3.2-5.2); Albumin/Globulin Ratio 1.1 (1-3); BUN/Creatinine Ratio 14.3 (8-20); Calcium 8.8 mg/dL (8.6-10.3); EGFR African American 72.1 (>60); EGFR Non-African American 59.6 (>60); Globulin 3.1 g/dL (2-4); Magnesium 2.3 mg/dL (1.9-2.7); Potassium 3.8 mmol/L (3.5-5.0); Total Bilirubin 0.4 mg/dL (0.2-1.0); Total Protein 6.4 g/dL (6.4-8.9)
[2020-07-29 06:11] LABS: ABS Basophils 0.1 10^3/ul (0-0.2); ABS Eosinophils 0.3 10^3/ul (0-0.6); ABS Lymphocytes 1.7 10^3/ul (1.0-4.8); ABS Monocytes 0.7 10^3/ul (0-0.8); ABS Neutrophils 6.7 10^3/ul (1.5-7.7); Eosinophil % 3.6 %; Hematocrit 30 % (42-52); Hemoglobin 9.9 g/dL (14.0-18.0); Lymphocyte % 18.1 %; Mean Corpuscular HGB Conc 33 g/dL (31-36); Mean Corpuscular Hemoglobin 25 pg (27-31); Mean Corpuscular Volume 74 fL (80-94); Mean Platelet Volume 6.8 fL (7.4-10.4); Platelet Count 260 10^3/uL (150-450); Red Blood Count 4.04 10^6 /uL (4.18-5.48); Red Cell Distribution Width 18 % (10-15); White Blood Count 9.6 10^3/uL (3.5-10.8)
[2020-07-29] MEDS: Multivitamins ADULT w/MIN LIQ 15 ML UDC PO SCH (08:15)
[2020-07-29] MEDS: Pantoprazole VIAL 40 MG VIAL IV SCH (08:15)
[2020-07-29] MEDS: Linezolid 600 MG IVPREMIX(*) 600 MG/300 ML BAG IVPB SCH ×2 (08:16→19:56)
[2020-07-29 12:41] LABS: T4, Total 10.67 mcg/dL (6.09-12.23)
[2020-07-29] MEDS ORDERED: Rocuronium 50 mg VIAL 10 mg/ml 5 ml VIAL (50 mg) ONE (17:04)
[2020-07-29] MEDS ORDERED: Rocuronium 50 mg VIAL 10 mg/ml 5 ml VIAL (50 mg) IV ONE (17:38)
[2020-07-29] MEDS ORDERED: Midazolam 2 mg/2 ml VIAL 1 mg/ml 2 ml VIAL (2 mg) IV SLOW PU ONE ×2 (20:17→22:44)
[2020-07-29] MEDS ORDERED: Midazolam 2 mg/2 ml VIAL 1 mg/ml 2 ml VIAL (2 mg) ONE ×2 (20:23→22:51)
[2020-07-29] MEDS: Azithromycin 500 mg/250 ml NS 500 MG/250 ML BAG IVPB SCH (22:10)
[2020-07-30] MEDS: Propofol 10 mg/ml 100 ML BTL 100 ML IV SCH ×5 (01:00→13:15)
[2020-07-30] MEDS ORDERED: Midazolam 2 mg/2 ml VIAL 1 mg/ml 2 ml VIAL (2 mg) ONE ×2 (01:51→04:15)
[2020-07-30] MEDS ORDERED: Midazolam 2 mg/2 ml VIAL 1 mg/ml 2 ml VIAL (2 mg) IV SLOW PU ONE ×2 (01:51→04:13)
[2020-07-30] MEDS: Chlorhexidine MOUTHWASH 0.12% 15 ML UDC SWISH SPIT SCH ×7 (02:13→21:42)
[2020-07-30] MEDS: ZOSYN 3.375 GM Q8H per EXTENDED INFUSION IV SCH ×3 (03:42→20:36)
[2020-07-30] MEDS: Lactated Ringers 1000 ml BAG 1,000 ML IV SCH ×3 (03:43→18:34)
[2020-07-30 04:09] LABS: ABS Eosinophils 0.4 10^3/ul (0-0.6); ABS Lymphocytes 1.6 10^3/ul (1.0-4.8); ABS Monocytes 0.7 10^3/ul (0-0.8); ABS Neutrophils 5.1 10^3/ul (1.5-7.7); Eosinophil % 4.9 %; Hematocrit 30 % (42-52); Hemoglobin 9.7 g/dL (14.0-18.0); Lymphocyte % 20.6 %; Mean Corpuscular HGB Conc 33 g/dL (31-36); Mean Corpuscular Hemoglobin 25 pg (27-31); Mean Corpuscular Volume 75 fL (80-94); Mean Platelet Volume 7.3 fL (7.4-10.4); Nucleated Red Blood Cells % 0.1; Platelet Count 254 10^3/uL (150-450); Red Blood Count 3.92 10^6 /uL (4.18-5.48); Red Cell Distribution Width 18 % (10-15); White Blood Count 7.8 10^3/uL (3.5-10.8)
[2020-07-30 04:24] LABS: Albumin 3.2 g/dL (3.2-5.2); BUN/Creatinine Ratio 8.5 (8-20); Calcium 8.9 mg/dL (8.6-10.3); EGFR African American 83.5 (>60); Globulin 3.2 g/dL (2-4); Potassium 3.8 mmol/L (3.5-5.0); Total Bilirubin 0.2 mg/dL (0.2-1.0); Total Protein 6.4 g/dL (6.4-8.9)
[2020-07-30] MEDS: Heparin 5000 UNITS/ML 1 mL VIAL SUBCUT SCH ×3 (05:27→21:42)
[2020-07-30] MEDS: Dexmedetomidine 1,000 MCG in NS 0.9% 250 ml 240 ML IV SCH (05:27)
[2020-07-30] MEDS: Pantoprazole VIAL 40 MG VIAL IV SCH (07:59)
[2020-07-30] MEDS: Multivitamins ADULT w/MIN LIQ 15 ML UDC PO SCH (07:59)
[2020-07-30] MEDS: Linezolid 600 MG IVPREMIX(*) 600 MG/300 ML BAG IVPB SCH ×2 (07:59→20:37)
[2020-07-30] MEDS ORDERED: Potassium Chloride LIQUID 20 MEQ/15 ML LIQUID PO ONE ×2 (08:23→08:25)
[2020-07-30] MEDS: Midazolam 50 MG VIAL IV DRIP 50 ML IV SCH ×3 (10:43→22:07)
[2020-07-30] MEDS ORDERED: fentaNYL 100 mcg/2 ml 50 MCG/ML VIAL IV SLOW PU ONE (11:37)
[2020-07-30] MEDS ORDERED: fentaNYL 100 mcg/2 ml 50 MCG/ML VIAL ONE (11:39)
[2020-07-30] MEDS ORDERED: fentaNYL INFUSION 50 MCG/ML 2,500 MCG/50 ML BAG IV SCH ×2 (14:00→22:23)
[2020-07-30] MEDS ORDERED: Dexmedetomidine 1,000 MCG in NS 0.9% 250 ml 240 ML IV SCH (17:00)
[2020-07-30] MEDS ORDERED: Rocuronium 50 mg VIAL 10 mg/ml 5 ml VIAL (50 mg) ONE (17:57)
[2020-07-30] MEDS ORDERED: Haloperidol 5 mg/ml SDV IV/IM 5 MG/ML AMP IV SLOW PU PRN (18:54)
[2020-07-30] MEDS ORDERED: Rocuronium 50 mg VIAL 10 mg/ml 5 ml VIAL (50 mg) IV ONE (19:06)
[2020-07-30] MEDS: DOXYcycline 100 MG in NS 0.9% 250 ml 250 ML IVPB SCH (21:42)
[2020-07-31] MEDS ORDERED: fentaNYL INFUSION 50 MCG/ML 2,500 MCG/50 ML BAG IV SCH (01:52)
[2020-07-31] MEDS ORDERED: Dexmedetomidine 1,000 MCG in NS 0.9% 250 ml 240 ML IV SCH (02:00)
[2020-07-31] MEDS: Midazolam 50 MG VIAL IV DRIP 50 ML IV SCH (02:46)
[2020-07-31] MEDS: Chlorhexidine MOUTHWASH 0.12% 15 ML UDC SWISH SPIT SCH ×3 (03:17→11:28)
[2020-07-31 04:26] LABS: ABS Basophils 0.1 10^3/ul (0-0.2); ABS Eosinophils 0.3 10^3/ul (0-0.6); ABS Lymphocytes 1.7 10^3/ul (1.0-4.8); ABS Monocytes 0.5 10^3/ul (0-0.8); ABS Neutrophils 2.9 10^3/ul (1.5-7.7); Eosinophil % 5.4 %; Hematocrit 30 % (42-52); Hemoglobin 9.5 g/dL (14.0-18.0); Lymphocyte % 30.8 %; Mean Corpuscular HGB Conc 32 g/dL (31-36); Mean Corpuscular Hemoglobin 24 pg (27-31); Mean Corpuscular Volume 76 fL (80-94); Mean Platelet Volume 7.3 fL (7.4-10.4); Platelet Count 284 10^3/uL (150-450); Red Blood Count 3.91 10^6 /uL (4.18-5.48); Red Cell Distribution Width 18 % (10-15); White Blood Count 5.4 10^3/uL (3.5-10.8)
[2020-07-31] MEDS: ZOSYN 3.375 GM Q8H per EXTENDED INFUSION IV SCH ×3 (04:47→19:42)
[2020-07-31] MEDS ORDERED: Midazolam 50 MG VIAL IV DRIP 50 ML IV SCH (04:57)
[2020-07-31 05:02] LABS: BUN/Creatinine Ratio 6.5 (8-20); Calcium 8.5 mg/dL (8.6-10.3); EGFR African American 108.9 (>60); Globulin 2.9 g/dL (2-4); Magnesium 1.7 mg/dL (1.9-2.7); Potassium 3.4 mmol/L (3.5-5.0); Total Bilirubin 0.2 mg/dL (0.2-1.0); Total Protein 5.9 g/dL (6.4-8.9)
[2020-07-31] MEDS: Heparin 5000 UNITS/ML 1 mL VIAL SUBCUT SCH ×3 (05:15→21:14)
[2020-07-31] MEDS: Lactated Ringers 1000 ml BAG 1,000 ML IV SCH ×3 (05:16→22:46)
[2020-07-31] MEDS ORDERED: Potassium Chloride LIQUID 20 MEQ/15 ML LIQUID PO ONE (05:26)
[2020-07-31] MEDS ORDERED: Magnesium Sulfate 2 gm BAG 2 GM/50 ML BAG IVPB ONE (05:27)
[2020-07-31] MEDS: Linezolid 600 MG IVPREMIX(*) 600 MG/300 ML BAG IVPB SCH (08:30)
[2020-07-31] MEDS: Multivitamins ADULT w/MIN LIQ 15 ML UDC PO SCH (08:31)
[2020-07-31] MEDS: Pantoprazole VIAL 40 MG VIAL IV SCH (08:32)
[2020-07-31] MEDS: DOXYcycline 100 MG in NS 0.9% 250 ml 250 ML IVPB SCH (10:09)
[2020-08-01] MEDS: ZOSYN 3.375 GM Q8H per EXTENDED INFUSION IV SCH (04:11)
[2020-08-01] MEDS: Heparin 5000 UNITS/ML 1 mL VIAL SUBCUT SCH ×3 (06:01→20:17)
[2020-08-01 06:20] LABS: Hematocrit 36 % (42-52); Hemoglobin 11.6 g/dL (14.0-18.0); Mean Corpuscular HGB Conc 32 g/dL (31-36); Mean Corpuscular Hemoglobin 24 pg (27-31); Mean Corpuscular Volume 74 fL (80-94); Mean Platelet Volume 6.8 fL (7.4-10.4); Platelet Count 318 10^3/uL (150-450); Red Blood Count 4.88 10^6 /uL (4.18-5.48); Red Cell Distribution Width 18 % (10-15); White Blood Count 4.7 10^3/uL (3.5-10.8)
[2020-08-01 06:35] LABS: BUN/Creatinine Ratio 5.5 (8-20); EGFR African American 111.7 (>60); EGFR Non-African American 92.3 (>60); Magnesium 1.8 mg/dL (1.9-2.7); Potassium 3.8 mmol/L (3.5-5.0)
[2020-08-01] MEDS ORDERED: Lactated Ringers 1000 ml BAG 1,000 ML IV SCH (07:14)
[2020-08-01] MEDS ORDERED: Magnesium Sulfate 2 gm BAG 2 GM/50 ML BAG IVPB ONE (08:15)
[2020-08-01] MEDS: Multivitamins ADULT w/MIN LIQ 15 ML UDC PO SCH (08:44)
[2020-08-01] MEDS: Pantoprazole VIAL 40 MG VIAL IV SCH (08:44)
[2020-08-01] MEDS: Polyethylene Glycol 3350 17 GM PACKET PO SCH (08:45)
[2020-08-01] MEDS: Buprenorp/Nalox 4-1 MG FILM SL FILM SCH (08:53)
[2020-08-01] MEDS: Buprenorp/Nalox 8-2 MG FILM SL FILM SCH (08:56)
[2020-08-01] MEDS ORDERED: BUPRENORPHINE NALOXONE SL SCH (09:00)
[2020-08-01] MEDS: Nicotine PATCH 7 MG/24 HR PATCH TRANSDERM SCH (11:05)
[2020-08-01 11:49] LABS: Hepatitis B Surface Antigen Nonreactive (Nonreactive)
[2020-08-01 11:54] LABS: Hepatitis B Core IgM Nonreactive (Nonreactive)
[2020-08-01 12:06] LABS: Hepatitis B Surface Ab Not Immune (Immune)
[2020-08-01 12:30] LABS: Hepatitis C Antibody Reactive (Negative)
[2020-08-02] MEDS: Heparin 5000 UNITS/ML 1 mL VIAL SUBCUT SCH ×2 (05:13→14:09)
[2020-08-02] MEDS: Pantoprazole VIAL 40 MG VIAL IV SCH (07:26)
[2020-08-02] MEDS: Polyethylene Glycol 3350 17 GM PACKET PO SCH (07:29)
[2020-08-02] MEDS: Nicotine PATCH 7 MG/24 HR PATCH TRANSDERM SCH (07:30)
[2020-08-02] MEDS: Buprenorp/Nalox 8-2 MG FILM SL FILM SCH ×2 (07:31→07:49)
[2020-08-02] MEDS: Buprenorp/Nalox 4-1 MG FILM SL FILM SCH ×2 (07:31→07:48)
[2020-08-02 11:18] VITALS: BP 121/59
[2020-08-02] MEDS: Multivitamins ADULT w/MIN LIQ 15 ML UDC PO SCH (11:59)
[2020-08-02] MEDS ORDERED: Sulfamethox/Trimethoprim DS TAB 800/160 mg PO SCH (21:00)
[2020-08-03] MEDS ORDERED: Multivitamins/Minerals TAB PO SCH (09:00)
[2020-08-03] MEDS ORDERED: Buprenorp/Nalox 8-2 MG FILM SL FILM SCH (09:00)
[2020-08-04 16:23] LABS: Hepatitis Be Antibody Negative (Negative)
== END 2020-08-02 15:55 | disposition left against medical advice (07) | DRG 720 ==
LOC: ED 07:12 → ICU 10:38 → MEDTELE 08-01 09:41
PROVIDERS: ADMIT Internal Medicine; ATTEND Internal Medicine

== ENCOUNTER 2020-08-26 16:29 | Inpatient (IN) ==
[~2020-08-26 16:29] MED LIST changes: +Diazepam INJ CARPUJECT 5 MG/ML ONE; -Haloperidol INJ IV/IM* 5 MG/ML AMP ONE; -LORazepam INJ* 2 MG/ML 1 ML VIAL ONE; -diPHENhydraMINE IV* 50 MG/ML 1 ml VIAL (BENADRYL) ONE
[2020-08-26] MEDS ORDERED: Diazepam INJ CARPUJECT 5 MG/ML IM ONE ×3 (16:33→16:47)
[2020-08-26] MEDS ORDERED: Ketamine HCL 50 mg/ml 10 ml VIAL (500 MG) IM ONE ×2 (16:44→21:04)
[2020-08-26 18:08] LABS: ABS Basophils 0.1 10^3/ul (0-0.2); ABS Eosinophils 0.1 10^3/ul (0-0.6); ABS Lymphocytes 1.5 10^3/ul (1.0-4.8); ABS Monocytes 0.7 10^3/ul (0-0.8); ABS Neutrophils 4.2 10^3/ul (1.5-7.7); Eosinophil % 1.4 %; Hematocrit 34 % (42-52); Hemoglobin 11.3 g/dL (14.0-18.0); Lymphocyte % 23.1 %; Mean Corpuscular HGB Conc 33 g/dL (31-36); Mean Corpuscular Hemoglobin 24 pg (27-31); Mean Corpuscular Volume 75 fL (80-94); Mean Platelet Volume 6.9 fL (7.4-10.4); Platelet Count 326 10^3/uL (150-450); Red Blood Count 4.61 10^6 /uL (4.18-5.48); Red Cell Distribution Width 18 % (10-15); White Blood Count 6.6 10^3/uL (3.5-10.8)
[2020-08-26] MEDS ORDERED: Lactated Ringers 1000 ml BAG 1,000 ML IV ONE (18:13)
[2020-08-26 18:23] LABS: ALT 18 U/L (7-52); AST 33 U/L (13-39); Albumin 4.4 g/dL (3.2-5.2); Albumin/Globulin Ratio 1.2 (1-3); Alkaline Phosphatase 49 U/L (34-104); Anion Gap 7 mmol/L (2-11); BUN/Creatinine Ratio 12.1 (8-20); Blood Urea Nitrogen 16 mg/dL (6-24); CO2 Carbon Dioxide 27 mmol/L (22-32); Calcium 9.2 mg/dL (8.6-10.3); Chloride 103 mmol/L (101-111); Creatine Kinase 755 U/L (10-223); EGFR African American 72.7 (>60); EGFR Non-African American 60.1 (>60); Globulin 3.6 g/dL (2-4); Glucose 87 mg/dL (70-100); Potassium 4.5 mmol/L (3.5-5.0); Sodium 137 mmol/L (135-145)
[2020-08-26 18:27] LABS: Acetaminophen < 15 mcg/mL; Alcohol, S < 10 mg/dL (<10); Salicylate < 2.50 mg/dL (<30)
[2020-08-26 18:38] LABS: TSH Ultra Thyroid Stim Horm 1.63 mcIU/mL (0.34-5.60)
[2020-08-26] MEDS ORDERED: LORazepam 2 mg VIAL 1 ml ONE (18:45)
[2020-08-26] MEDS ORDERED: Lorazepam PYXIS KEY ONE (18:45)
[2020-08-26] MEDS ORDERED: Lorazepam PYXIS KEY PRN ×3 (18:50→22:13)
[2020-08-26] MEDS ORDERED: LORazepam 2 mg VIAL 1 ml IV PUSH ONE ×2 (18:50→20:08)
[2020-08-26] MEDS ORDERED: Ondansetron 4 mg VIAL 2 MG/ML 2 ml VIAL IV PRN (20:12)
[2020-08-26] MEDS ORDERED: NS 0.9% 1000 ml BAG 1,000 ML IV SCH ×2 (20:15→20:27)
[2020-08-26 20:30] LABS: Urine Appearance Cloudy; Urine Bilirubin Negative (Negative); Urine Blood Negative (Negative); Urine Color Yellow; Urine Glucose Negative (Negative); Urine Ketones Negative (Negative); Urine Nitrite Negative (Negative); Urine Protein Negative (Negative); Urine Specific Gravity 1.023 (1.010-1.030); Urine Urobilinogen Negative (Negative)
[2020-08-26 20:43] LABS: Urine Benzodiazepine Screen Presumptive Positive (None Detect); Urine Cannabinoids Screen None Detected (None Detect); Urine Opiates Screen Presumptive Positive (None Detect)
[2020-08-26] MEDS: Dexmedetomidine 1,000 MCG in NS 0.9% 250 ml 240 ML IV SCH (20:54)
[2020-08-26] MEDS ORDERED: Dexmedetomidine 1,000 MCG in NS 0.9% 250 ml 240 ML IV SCH (21:00)
[2020-08-26] MEDS ORDERED: LORazepam 2 mg VIAL 1 ml IV PUSH PRN (22:13)
[2020-08-26] MEDS: Heparin 5000 UNITS/ML 1 mL VIAL SUBCUT SCH (22:50)
[2020-08-27 02:24] LABS: BUN/Creatinine Ratio 14.7 (8-20); Calcium 8.7 mg/dL (8.6-10.3); EGFR African American 90.7 (>60); EGFR Non-African American 74.9 (>60); Potassium 4.4 mmol/L (3.5-5.0)
[2020-08-27 03:42] LABS: Urine Appearance Clear; Urine Bilirubin Negative (Negative); Urine Blood Negative (Negative); Urine Color Yellow; Urine Glucose Negative (Negative); Urine Ketones Negative (Negative); Urine Nitrite Negative (Negative); Urine Protein Negative (Negative); Urine Specific Gravity 1.024 (1.010-1.030); Urine Urobilinogen Negative (Negative)
[2020-08-27] MEDS: Heparin 5000 UNITS/ML 1 mL VIAL SUBCUT SCH ×2 (06:17→14:00)
[2020-08-27 06:38] LABS: ABS Basophils 0.1 10^3/ul (0-0.2); ABS Eosinophils 0.2 10^3/ul (0-0.6); ABS Lymphocytes 1.5 10^3/ul (1.0-4.8); ABS Monocytes 0.8 10^3/ul (0-0.8); ABS Neutrophils 6.6 10^3/ul (1.5-7.7); Eosinophil % 2.3 %; Hematocrit 32 % (42-52); Hemoglobin 10.3 g/dL (14.0-18.0); Lymphocyte % 16.5 %; Mean Corpuscular HGB Conc 33 g/dL (31-36); Mean Corpuscular Hemoglobin 25 pg (27-31); Mean Corpuscular Volume 75 fL (80-94); Mean Platelet Volume 7.2 fL (7.4-10.4); Platelet Count 265 10^3/uL (150-450); Red Cell Distribution Width 17 % (10-15); White Blood Count 9.2 10^3/uL (3.5-10.8)
[2020-08-27 06:48] LABS: INR 1.04 (0.82-1.09)
[2020-08-27 06:51] LABS: BUN/Creatinine Ratio 15.5 (8-20); Calcium 8.5 mg/dL (8.6-10.3); EGFR African American 96.8 (>60); Potassium 4.1 mmol/L (3.5-5.0)
[2020-08-27] MEDS: Dexmedetomidine 1,000 MCG in NS 0.9% 250 ml 240 ML IV SCH (09:00)
[2020-08-27] MEDS: Lactated Ringers 1000 ml BAG 1,000 ML IV SCH ×3 (09:12→20:25)
[2020-08-27] MEDS: Thiamine 100 MG/ML 2 ml VIAL 100 MG in NS 0.9% 50 ML 50 ML IV SCH (11:36)
[2020-08-27 16:42] LABS: ALT 15 U/L (7-52); AST 30 U/L (13-39); Albumin 3.5 g/dL (3.2-5.2); Albumin/Globulin Ratio 1.1 (1-3); Alkaline Phosphatase 47 U/L (34-104); Anion Gap 7 mmol/L (2-11); BUN/Creatinine Ratio 15.6 (8-20); Blood Urea Nitrogen 14 mg/dL (6-24); CO2 Carbon Dioxide 25 mmol/L (22-32); Calcium 8.6 mg/dL (8.6-10.3); Chloride 104 mmol/L (101-111); Creatine Kinase 660 U/L (10-223); EGFR African American 113.1 (>60); EGFR Non-African American 93.5 (>60); Globulin 3.2 g/dL (2-4); Glucose 106 mg/dL (70-100); Potassium 3.9 mmol/L (3.5-5.0); Sodium 136 mmol/L (135-145); Total Protein 6.7 g/dL (6.4-8.9)
[2020-08-28] MEDS: Heparin 5000 UNITS/ML 1 mL VIAL SUBCUT SCH ×2 (00:06→09:51)
[2020-08-28] MEDS: Lactated Ringers 1000 ml BAG 1,000 ML IV SCH ×2 (09:42→09:43)
[2020-08-28] MEDS: Thiamine 100 MG/ML 2 ml VIAL 100 MG in NS 0.9% 50 ML 50 ML IV SCH (10:56)
[2020-08-28 11:35] VITALS: BP 120/84
[2020-08-28 13:09] LABS: % Iron Saturation 7 % (15-55); Iron 26 ug/dL (50-212); Total Iron Binding Capacity 357 mcg/dL (250-450); Transferrin 255 mg/dL (203-362); Unsaturated Iron Binding < 342 ug/dL
[2020-08-28 13:34] LABS: Folate > 20.00 ng/mL (>3.99)
[2020-08-28 13:36] LABS: Vitamin B12 504 pg/mL (180-914)
== END 2020-08-28 12:12 | disposition home or self-care (01) | DRG 776 ==
LOC: ED 16:29 → ICU 20:08 → MEDTELE 08-27 15:54
PROVIDERS: ADMIT Student in an Organized Health Care Education/Training Program; ATTEND Internal Medicine

== ENCOUNTER 2021-06-09 13:03 | Inpatient (IN) ==
[2021-06-09] MEDS ORDERED: LORazepam 2 mg VIAL 1 ml IM ONE ×2 (13:08→13:53)
[2021-06-09] MEDS ORDERED: LORazepam 2 mg VIAL 1 ml ONE ×2 (13:08→17:33)
[2021-06-09] MEDS ORDERED: Ketamine HCL 50 mg/ml 10 ml VIAL (500 MG) IM ONE ×2 (13:34→13:53)
[2021-06-09] MEDS ORDERED: Lorazepam PYXIS KEY PRN ×2 (13:53→17:30)
[2021-06-09] MEDS ORDERED: Midazolam 5 mg/5 ml VIAL 1 mg/ml 5 ml VIAL (5 mg) ONE (13:56)
[2021-06-09] MEDS ORDERED: Midazolam 5 mg/ml concentrated 5 mg/ml 1 ml VIAL ONE (13:57)
[2021-06-09] MEDS ORDERED: Succinylcholine 200 mg VIAL 20 mg/ml 10 ml VIAL (200 mg) ONE (14:23)
[2021-06-09] MEDS ORDERED: Propofol 10 mg/ml 100 ML BTL 100 ML ONE (14:23)
[2021-06-09 14:25] LABS: Hematocrit 41 % (42-52); Hemoglobin 13.3 g/dL (14.0-18.0); Mean Corpuscular HGB Conc 32 g/dL (31-36); Mean Corpuscular Hemoglobin 25 pg (27-31); Mean Corpuscular Volume 76 fL (80-94); Mean Platelet Volume 6.7 fL (7.4-10.4); Platelet Count 468 10^3/uL (150-450); Red Blood Count 5.42 10^6 /uL (4.18-5.48); Red Cell Distribution Width 16 % (10-15); White Blood Count 17.2 10^3/uL (3.5-10.8)
[2021-06-09 14:41] LABS: ALT 97 U/L (7-52); Albumin 4.6 g/dL (3.2-5.2); Alkaline Phosphatase 63 U/L (35-149); Blood Urea Nitrogen 25 mg/dL (6-24); CO2 Carbon Dioxide 23 mmol/L (22-32); Calcium 10.4 mg/dL (8.6-10.3); Chloride 102 mmol/L (101-111); Creatine Kinase 1257 U/L (10-223); EGFR African American 38.3 (>60); EGFR Non-African American 31.7 (>60); Globulin 4.8 g/dL (2-4); Glucose 105 mg/dL (70-100); Sodium 136 mmol/L (135-145); Total Protein 9.4 g/dL (6.4-8.9)
[2021-06-09] MEDS ORDERED: Propofol 10 mg/ml 100 ML BTL 100 ML IV ONE ×3 (14:45→17:33)
[2021-06-09] MEDS ORDERED: Propofol 10 MG/ML 20 ML BTL IV PUSH ONE (14:50)
[2021-06-09] MEDS ORDERED: Artificial Tear OPHTH.OINT 3.5 GM BOTH EYES PRN (14:54)
[2021-06-09 15:00] LABS: Acetaminophen < 15 mcg/mL; Alcohol, S < 10 mg/dL (<10); Salicylate < 2.50 mg/dL (<30)
[2021-06-09] MEDS ORDERED: Heparin 5000 UNITS/ML 1 mL VIAL SUBCUT SCH (15:00)
[2021-06-09] MEDS ORDERED: Chlorhexidine MOUTHWASH 0.12% 15 ML UDC SWISH SPIT SCH (15:00)
[2021-06-09] MEDS ORDERED: PHENobarbital IV 65 MG/ML 1 ml VIAL IV ONE (15:00)
[2021-06-09] MEDS ORDERED: PHENobarbital IV 130 MG in NS 0.9% 100 ml BAG 100 ML IV PRN (15:06)
[2021-06-09 15:08] LABS: ABS Basophils 0.1 10^3/ul (0-0.2); ABS Eosinophils 0.2 10^3/ul (0-0.6); ABS Lymphocytes 7.7 10^3/ul (1.0-4.8); ABS Monocytes 1.8 10^3/ul (0-0.8); ABS Neutrophils 7.4 10^3/ul (1.5-7.7); Eosinophil % 1.3 %; Lymphocyte % 44.6 %
[2021-06-09 15:15] LABS: TSH Ultra Thyroid Stim Horm 3.47 mcIU/mL (0.34-5.60)
[2021-06-09] MEDS ORDERED: Lactated Ringers 1000 ml BAG 1,000 ML IV ONE ×2 (15:19)
[2021-06-09] MEDS ORDERED: NS 0.9% 1000 ml BAG 1,000 ML IV ONE (15:26)
[2021-06-09] MEDS ORDERED: PHENobarbital IV 130 MG in NS 0.9% 50 ML 50 ML IV PRN (15:28)
[2021-06-09 15:36] LABS: Urine Appearance Cloudy; Urine Bilirubin Negative (Negative); Urine Blood 2+ (Negative); Urine Color Yellow; Urine Glucose Negative (Negative); Urine Ketones Negative (Negative); Urine Nitrite Negative (Negative); Urine Protein 1+(30 mg/dL) (Negative); Urine Specific Gravity 1.017 (1.002-1.030); Urine Urobilinogen Negative (Negative)
[2021-06-09 15:36] LABS: Anion Gap 11 mmol/L (2-11)
[2021-06-09] MEDS ORDERED: PHENobarbital IV 65 MG/ML 1 ml VIAL ONE (15:36)
[2021-06-09 15:43] LABS: Urine Bacteria Absent (Absent); Urine Red Blood Cell Trace(0-2/hpf) (Absent); Urine Squamous Epithelial Cell Present (Absent); Urine White Blood Cell Trace(0-5/hpf) (Absent)
[2021-06-09 15:45] LABS: Urine Benzodiazepine Screen Presumptive Positive (None Detect); Urine Cannabinoids Screen None Detected (None Detect); Urine Opiates Screen None Detected (None Detect)
[2021-06-09] MEDS ORDERED: PHENobarbital IV 260 MG in NS 0.9% 50 ML 50 ML IV ONE (16:00)
[2021-06-09] MEDS ORDERED: Norepinephrine 16MCG/ML IVPRE 4,000 MCG/250 ML BAG IV SCH (16:00)
[2021-06-09 16:05] LABS: PCO2 Arterial 46 mmHg (35-45); PO2 Arterial 172 mmHg (80-100)
[2021-06-09 16:15] LABS: Troponin I 0.03 ng/mL (<0.03)
[2021-06-09 16:24] LABS: AST Redraw 71 U/L (13-39); Potassium Redraw 3.9 mmol/L (3.5-5.0)
[2021-06-09] MEDS ORDERED: LORazepam 2 mg VIAL 1 ml IV PUSH SCH (17:30)
[2021-06-09] MEDS ORDERED: Dexmedetomidine 1,000 MCG in NS 0.9% 250 ml 240 ML IV SCH (18:00)
[2021-06-09] MEDS: Heparin 5000 UNITS/ML 1 mL VIAL SUBCUT SCH ×2 (18:01→23:19)
[2021-06-09] MEDS: Pantoprazole VIAL 40 MG VIAL IV SCH (18:04)
[2021-06-09] MEDS ORDERED: LORazepam 2 mg VIAL 1 ml IV PUSH PRN (19:00)
[2021-06-09] MEDS ORDERED: Piperacillin/Tazobac ADVAN 3.375 GM in NS 0.9% 100 ml BAG 100 ML IV ONE (19:06)
[2021-06-09] MEDS: Chlorhexidine MOUTHWASH 0.12% 15 ML UDC SWISH SPIT SCH (19:47)
[2021-06-09] MEDS ORDERED: Zosyn per Pharmacy NOTE FOLLOW UP SCH (20:00)
[2021-06-09 21:03] LABS: ALT 79 U/L (7-52); Albumin 3.8 g/dL (3.2-5.2); Albumin/Globulin Ratio 1.1 (1-3); Alkaline Phosphatase 51 U/L (35-149); Blood Urea Nitrogen 25 mg/dL (6-24); CO2 Carbon Dioxide 22 mmol/L (22-32); Chloride 104 mmol/L (101-111); EGFR Non-African American 44.6 (>60); Globulin 3.6 g/dL (2-4); Glucose 92 mg/dL (70-100); Sodium 135 mmol/L (135-145); Total Protein 7.4 g/dL (6.4-8.9)
[2021-06-09 21:13] LABS: Anion Gap 9 mmol/L (2-11); Troponin I 0.05 ng/mL (<0.03)
[2021-06-09 21:48] LABS: Potassium Redraw 4.1 mmol/L (3.5-5.0)
[2021-06-09 21:48] LABS: Myoglobin 1488.3 ng/mL (17.4-105.7)
[2021-06-10] MEDS: Chlorhexidine MOUTHWASH 0.12% 15 ML UDC SWISH SPIT SCH ×6 (00:01→20:48)
[2021-06-10] MEDS: ZOSYN 3.375 GM Q8H per EXTENDED INFUSION IV SCH ×3 (00:26→15:56)
[2021-06-10] MEDS: Propofol 10 mg/ml 100 ML BTL 100 ML IV SCH ×3 (03:30→10:47)
[2021-06-10 03:57] LABS: ABS Eosinophils 0.1 10^3/ul (0-0.6); ABS Lymphocytes 1.5 10^3/ul (1.0-4.8); ABS Monocytes 0.9 10^3/ul (0-0.8); ABS Neutrophils 13.8 10^3/ul (1.5-7.7); Eosinophil % 0.4 %; Hematocrit 37 % (42-52); Hemoglobin 11.5 g/dL (14.0-18.0); Lymphocyte % 9.5 %; Mean Corpuscular HGB Conc 31 g/dL (31-36); Mean Corpuscular Hemoglobin 24 pg (27-31); Mean Corpuscular Volume 75 fL (80-94); Mean Platelet Volume 6.8 fL (7.4-10.4); Platelet Count 316 10^3/uL (150-450); Red Blood Count 4.88 10^6 /uL (4.18-5.48); Red Cell Distribution Width 16 % (10-15); White Blood Count 16.3 10^3/uL (3.5-10.8)
[2021-06-10 04:16] LABS: ALT 82 U/L (7-52); AST 104 U/L (13-39); Albumin 3.6 g/dL (3.2-5.2); Alkaline Phosphatase 48 U/L (35-149); Anion Gap 6 mmol/L (2-11); Blood Urea Nitrogen 20 mg/dL (6-24); CO2 Carbon Dioxide 23 mmol/L (22-32); Calcium 8.9 mg/dL (8.6-10.3); Chloride 105 mmol/L (101-111); EGFR African American 62.4 (>60); EGFR Non-African American 51.6 (>60); Globulin 3.6 g/dL (2-4); Glucose 96 mg/dL (70-100); Magnesium 2.2 mg/dL (1.9-2.7); Phosphorus 3.3 mg/dL (2.5-5.0); Potassium 4.1 mmol/L (3.5-5.0); Sodium 134 mmol/L (135-145); Total Protein 7.2 g/dL (6.4-8.9)
[2021-06-10 04:38] LABS: Creatine Kinase 3709 U/L (10-223)
[2021-06-10] MEDS: Heparin 5000 UNITS/ML 1 mL VIAL SUBCUT SCH ×3 (04:45→21:12)
[2021-06-10 05:08] LABS: Troponin I 0.05 ng/mL (<0.03)
[2021-06-10] MEDS: Pantoprazole VIAL 40 MG VIAL IV SCH (07:50)
[2021-06-10] MEDS: Lactated Ringers 1000 ml BAG 1,000 ML IV SCH ×3 (07:51→20:49)
[2021-06-10 09:04] LABS: Myoglobin 632.8 ng/mL (17.4-105.7)
[2021-06-10] MEDS: DOXYcycline 100 MG in NS 0.9% 250 ml 250 ML IVPB SCH ×2 (09:27→21:44)
[2021-06-10] MEDS ORDERED: Buffered Lidocaine 1% SYRIN 1 ml INTRADERM ONE (10:08)
[2021-06-10] MEDS ORDERED: Haloperidol 5 mg/ml SDV IV/IM 5 MG/ML AMP IM ONE (10:08)
[2021-06-10] MEDS ORDERED: Haloperidol 5 mg/ml SDV IV/IM 5 MG/ML AMP ONE (10:08)
[2021-06-10 13:43] LABS: Hepatitis C Antibody Reactive (Negative)
[2021-06-10] MEDS: Buprenorp/Nalox 8-2 MG FILM SL FILM SCH (21:12)
[2021-06-10] MEDS ORDERED: Nicotine Lozenge mini 4 MG LOZNG.MINI MT PRN (21:19)
[2021-06-10 23:19] LABS: Hepatitis C Antibody Reactive (Negative)
[2021-06-11] MEDS: ZOSYN 3.375 GM Q8H per EXTENDED INFUSION IV SCH ×2 (00:02→07:15)
[2021-06-11] MEDS: Lactated Ringers 1000 ml BAG 1,000 ML IV SCH (05:14)
[2021-06-11] MEDS: Heparin 5000 UNITS/ML 1 mL VIAL SUBCUT SCH (05:18)
[2021-06-11 05:24] LABS: ABS Eosinophils 0.4 10^3/ul (0-0.6); ABS Lymphocytes 2.5 10^3/ul (1.0-4.8); ABS Monocytes 0.8 10^3/ul (0-0.8); ABS Neutrophils 6.4 10^3/ul (1.5-7.7); Eosinophil % 4.4 %; Hematocrit 35 % (42-52); Hemoglobin 11.3 g/dL (14.0-18.0); Lymphocyte % 24.3 %; Mean Corpuscular HGB Conc 32 g/dL (31-36); Mean Corpuscular Hemoglobin 24 pg (27-31); Mean Corpuscular Volume 76 fL (80-94); Mean Platelet Volume 6.9 fL (7.4-10.4); Platelet Count 285 10^3/uL (150-450); Red Blood Count 4.63 10^6 /uL (4.18-5.48); Red Cell Distribution Width 17 % (10-15); White Blood Count 10.1 10^3/uL (3.5-10.8)
[2021-06-11 06:21] LABS: Albumin 3.2 g/dL (3.2-5.2); Calcium 8.4 mg/dL (8.6-10.3); EGFR African American 84.8 (>60); EGFR Non-African American 70.1 (>60); Globulin 3.1 g/dL (2-4); Phosphorus 2.4 mg/dL (2.5-5.0); Potassium 3.9 mmol/L (3.5-5.0); Total Bilirubin 0.3 mg/dL (0.2-1.0); Total Protein 6.3 g/dL (6.4-8.9)
[2021-06-11] MEDS: Pantoprazole VIAL 40 MG VIAL IV SCH (07:16)
[2021-06-11] MEDS ORDERED: Potassium Phosphate IV 15 MMOLE in NS 0.9% 250 ml 250 ML IVPB ONE (08:00)
[2021-06-11] MEDS: Buprenorp/Nalox 8-2 MG FILM SL FILM SCH (08:36)
[2021-06-11] MEDS ORDERED: Nicotine PATCH 21 MG/24 HR PATCH TRANSDERM SCH (09:00)
[2021-06-11] MEDS: DOXYcycline 100 MG in NS 0.9% 250 ml 250 ML IVPB SCH (09:00)
[2021-06-11 11:18] LABS: Myoglobin 145.7 ng/mL (17.4-105.7)
[2021-06-11 12:02] VITALS: BP 116/66
== END 2021-06-11 13:00 | disposition left against medical advice (07) | DRG 812 ==
LOC: ED 13:03 → ICU 14:50
PROVIDERS: ADMIT Internal Medicine; ATTEND Internal Medicine